=== PATIENT | female | born 1960 | race Caucasian/White ===

== ENCOUNTER 2020-05-03 09:14 | Inpatient (IN) | payer OTHER, SELFPAY ==
[2020-05-03] VITALS (35 sets, daily range): BP systolic 90–171; BP diastolic 50–85; PULSE 84–105; RESP 14–20; TEMP 36–36.3; O2SAT 87–100; BMI 38.2; BMI 40.3
--- NOTE | 2020-05-03 09:33 | ED_ITS ---
HPI - Abdominal Pain General Chief Complaint: Abdominal Pain Stated Complaint: Severe stomach pain, vomiting bile, SOB Time Seen by Provider: 05/03/20 09:32 Source: patient Mode of arrival: Ambulatory Limitations: no limitations History of Present Illness HPI narrative: The patient developed abdominal pain last night, she has ongoing pain today. She developed emesis since the onset of pain. She has had no diarrhea, she has had only 1 small bowel movement since yesterday. She's had very little oral intake, she is still able to make urine this morning. She has a large umbilical hernia, she has never had abdominal or pelvic surgery. She has a history of diverticulitis. She has no history of bowel obstruction. He is having no fever with current symptoms, she does report chills. Although the pain initiated as abdominal pain, the pain now radiates to her back. The pain seems to be throughout her abdomen. She has history of COPD, she still smokes cigarettes. She has a chronic cough but no acute shortness of breath. Additionally, she has history of diabetes, hypertension, and CHF. Her last echo you revealed an EF of 55% Related Data Allergies Allergy/AdvReac Type Severity Reaction Status Date / Time atenolol [ATENOLOL] Allergy Severe THROAT Verified 05/03/20 09:50 CLOSES clonidine [CLONIDINE] Allergy Mild RASHS Verified 05/03/20 09:50 Review of Systems Constitutional Constitutional: Reports chills (Since last night), Denies fever(s), Denies lethargy and Denies weakness Eyes Eyes: Denies change in vision ENT Comments: No complaints Cardiovascular Cardiovascular: Denies chest pain, Denies rapid heart rate and Denies dyspnea Respiratory Respiratory: Reports cough and Denies dyspnea Gastrointestinal Gastrointestinal: Reports as per HPI Genitourinary Genitourinary: Denies dysuria Genitourinary: Denies dysuria Musculoskeletal Musculoskeletal: Reports as per HPI and Reports back pain Integumentary/Breasts Skin/Breast: Denies pruritus, Denies erythema, Denies rash and Denies wounds Neurologic Neurologic: Denies confusion and Denies weakness Psychiatric Psychiatric: Denies anxiety, Denies confusion and Denies depression Patient History Medical History COPD (chronic obstructive pulmonary disease) (Acute) Diabetes (Acute) HTN (hypertension) (Acute) Obstructive sleep apnea (Acute) Surgical History No history of previous surgery (Acute) S/P tonsillectomy (Acute) Social History Smoking Status: Current every day smoker Smoking Status: Current every day smoker alcohol intake frequency: 0-2 drinks per day Substance Use Type: does not use Exam Initial Vital Signs Initial Vital Signs: Vital Signs Temperature 96.9 F L 05/03/20 09:25 Pulse Rate 105 H 05/03/20 09:25 Respiratory Rate 20 05/03/20 09:25 Blood Pressure 159/85 H 05/03/20 09:25 Pulse Oximetry 90 L 05/03/20 09:25 Const General: cooperative and well developed Nutritional Appearance: well nourished Other: She appears uncomfortable. HENMT Head: normocephalic and atraumatic Eyes Conjunctivae: conjunctivae normal Sclera: sclerae normal Neck Neck: No JVD Chest Chest: normal palpation of entire chest wall Resp Auscultation: clear to auscultation bilaterally Cardio Rate: regular rate Rhythm: regular rhythm Heart Sounds: S1 normal and S2 normal GI Other: Morbidly obese. Large, protruding umbilical hernia. The hernia site is tender to palpation. The hernia seems to mostly be reduced, but pushes right back out. The hernia area seems to be the focus of pain, there is erythema and warmth at the site. She experiences tenderness throughout them, would not with guarding or rebound. Bowel sounds are normal to hyperactive. Back/Spine/Pelvis Back: No CVA tenderness Skin General: no rashes or lesions noted, No jaundice and No petechiae Neuro General: patient alert, patient oriented x3, gait normal and no focal motor deficits Speech: speech normal Extrem General: full ROM, No no clubbing, cyanosis or edema, no pedal edema and no calf tenderness Psych Mental Status: mental status grossly normal Course Course Course Narrative: A strangulated hernia was confirmed by CT. The situation was discussed with the radiologist. Small-bowel obstruction is present in ass ociation with strangulated hernia. The case was discussed with surgery, Dr. Camp. Columban was given. Anesthesia consult on the patient here in the ER. Her comorbidities of CHF, COPD, and diabetes were reviewed chest x-ray and labs indicated a degree of CHF currently. Anesthesia concurred that a current echo may be useful, 1 was ordered preop, and was performed in OR holding. Her EF is 45-50% at this time. Orders Ordered: ED Orders 05/03/20 09:27 EKG-12 Lead Stat 05/03/20 09:28 Complete Blood Count AUTO DIFF Stat Comprehensive Metabolic Panel Stat Lipase Stat NT-proBNP (BNP-Adult 18+) Stat Partial Thromboplastin Time Stat Prothrombin Time INR Stat 05/03/20 09:48 CT abdomen pelvis w con Stat 05/03/20 10:53 XR chest 1V Stat Sodium Chloride (Normal Saline 0.9%) 1,000 mls @ 250 mls/hr IV CONT SARAH Last Admin: 05/03/20 10:50 Dose: Not Given Documented by: RADHA Lactated Ringer's (Lactated Ringers) 1,000 mls @ 42 mls/hr IV CONT SARAH Last Admin: 05/03/20 14:44 Dose: 42 mls/hr Documented by: Infusion: 05/03/20 14:44 Dose: 42 mls/hr Documented by: Infusion: 05/03/20 13:03 Dose: 42 mls/hr Documented by: Admin: 05/03/20 12:06 Dose: 42 mls/hr Documented by: RADHA Discontinued Medications Albuterol (Ventolin) 2.5 mg INH NOW ONE Stop: 05/03/20 12:19 Last Admin: 05/03/20 13:36 Dose: 2.5 mg Documented by: SANA Hydromorphone HCl (Dilaudid) 1 mg IV NOW ONE Stop: 05/03/20 10:25 Last Admin: 05/03/20 10:27 Dose: 1 mg Documented by: RADHA Sodium Chloride (Normal Saline 0.9%) 1,000 mls @ 1,000 mls/hr IV BOLUS ONE Stop: 05/03/20 10:41 Last Infusion: 05/03/20 11:00 Dose: 0 mls/hr Documented by: Infusion: 05/03/20 10:15 Dose: 1,000 mls/hr Documented by: Infusion: 05/03/20 10:00 Dose: 0 mls/hr Documented by: Admin: 05/03/20 09:43 Dose: 1,000 mls/hr Documented by: RADHA Piperacillin/Tazobactam/Dextrose (Zosyn) 4.5 gm in 100 mls @ 200 mls/hr IV NOW ONE Stop: 05/03/20 11:23 Last Infusion: 05/03/20 11:35 Dose: 0 mls/hr Documented by: Admin: 05/03/20 11:05 Dose: 200 mls/hr Documented by: RADHA Acetaminophen (Ofirmev) 1,000 mg in 100 mls @ 400 mls/hr IV NOW ONE Stop: 05/03/20 14:56 Last Admin: 05/03/20 14:43 Dose: 400 mls/hr Documented by: ALICE Ketorolac Tromethamine (Toradol) 30 mg IV NOW ONE Stop: 05/03/20 09:48 Last Admin: 05/03/20 09:53 Dose: 30 mg Documented by: RADHA Ondansetron HCl (Zofran) 4 mg IV NOW ONE Stop: 05/03/20 09:48 Last Admin: 05/03/20 10:59 Dose: Not Given Documented by: RADHA Vital Signs Vital signs: Vital Signs - 8 hr 05/03/20 09:25 05/03/20 09:39 05/03/20 10:00 Temperature 96.9 F L Pulse Rate 105 H 101 H 97 H Respiratory Rate 20 Blood Pressure 159/85 H Pulse Oximetry 90 L 97 94 05/03/20 10:29 05/03/20 10:30 05/03/20 11:00 Temperature Pulse Rate 96 H 95 H 92 H Respiratory Rate Blood Pressure 149/77 H 158/77 H Pulse Oximetry 97 96 94 MDM - Abdominal Pain Lab Data Result diagrams: 05/03/20 09:28 05/03/20 09:28 Labs: Lab Results 05/03/20 05/03/20 05/03/20 Range/Units 09:28 09:28 09:28 WBC 16.5 H (4.5-11.0) X10^3/uL RBC 6.42 H (4.0-5.2) X10^6/uL Hgb 16.6 H (12.0-16.0) g/dL Hct 52.9 H (36-46) % MCV 82.4 (80-100) fL MCH 25.8 L (26-34) PG MCHC 31.3 (30-36) % RDW 16.8 H (11.6-14.8) % Plt Count 257 (150-400) X10^3/uL Neut % (Auto) 83.2 H (50-75) % Lymph % (Auto) 9.8 L (25-40) % [place] % (Auto) 6.4 (3-14) % Eos % (Auto) 0.3 L (2-4) % Baso % (Auto) 0.3 (0-2) % Neut # (Auto) 17120 H (9562-9225) /uL Lymph # (Auto) 1600 (6884-8831) /uL [place] # (Auto) 1100 H (0-900) /uL Eos # (Auto) 0 (0-450) /uL Baso # (Auto) 0 (0-100) /uL PT 11.2 (10.1-12.7) SECONDS INR 1.0 (0.9-1.3) APTT 35 (26.4-36.2) SECONDS Sodium 134 L (137-145) mmol/L Potassium 4.6 (3.4-5.1) mmol/L Chloride 92 L (98-107) mmol/L Carbon Dioxide 34 H (22-32) mmol/L BUN 18 H (7-17) mg/dL Creatinine 0.80 (0.52-1.04) mg/dL Estimated GFR > 60.0 (>60) mL/min BUN/Creatinine Ratio 22.5 H (6-22) Glucose 236 H (80-110) mg/dL Calcium 10.1 (8.4-10.2) mg/dL Total Bilirubin 0.9 (0.2-1.3) mg/dL AST 22 (14-36) IU/L ALT 20 (<35) IU/L Alkaline Phosphatase 112 (38-126) U/L NT-Pro-B Natriuret Pep (<125) pg/mL Total Protein 8.3 H (6.3-8.2) g/dL Albumin 4.3 (3.5-5.0) g/dL Globulin 4.0 (1.7-4.1) g/dL Albumin/Globulin Ratio 1.1 (1.0-2.8) Lipase 52 (23-300) U/L 05/03/20 Range/Units 09:28 WBC (4.5-11.0) X10^3/uL RBC (4.0-5.2) X10^6/uL Hgb (12.0-16.0) g/dL Hct (36-46) % MCV (80-100) fL MCH (26-34) PG MCHC (30-36) % RDW (11.6-14.8) % Plt Count (150-400) X10^3/uL Neut % (Auto) (50-75) % Lymph % (Auto) (25-40) % [place] % (Auto) (3-14) % Eos % (Auto) (2-4) % Baso % (Auto) (0-2) % Neut # (Auto) (3361-4647) /uL Lymph # (Auto) (0438-1690) /uL [place] # (Auto) (0-900) /uL Eos # (Auto) (0-450) /uL Baso # (Auto) (0-100) /uL PT (10.1-12.7) SECONDS INR (0.9-1.3) APTT (26.4-36.2) SECONDS Sodium (137-145) mmol/L Potassium (3.4-5.1) mmol/L Chloride (98-107) mmol/L Carbon Dioxide (22-32) mmol/L BUN (7-17) mg/dL Creatinine (0.52-1.04) mg/dL Estimated GFR (>60) mL/min BUN/Creatinine Ratio (6-22) Glucose (80-110) mg/dL Calcium (8.4-10.2) mg/dL Total Bilirubin (0.2-1.3) mg/dL AST (14-36) IU/L ALT (<35) IU/L Alkaline Phosphatase (38-126) U/L NT-Pro-B Natriuret Pep 842 H (<125) pg/mL Total Protein (6.3-8.2) g/dL Albumin (3.5-5.0) g/dL Globulin (1.7-4.1) g/dL Albumin/Globulin Ratio (1.0-2.8) Lipase (23-300) U/L Imaging Data CT scan - abdomen/pelvis: Radiologist's Impression: 2 Diagnostics DATE TYPE STATUS REF RANGE/AUTHOR Jennifer 05/03/20 12:32 Constantino Cuevas 05/03/20 10:53 Freddy Fernandez 05/03/20 09:48 Nahid Fernandezson Jacque Harrison 59, F110/20/1959 ADM [facility] 165.1cm 104.326kg BMI: 38.3kg/m? Search Chart No Data to Display No Data to Display THROAT CLOSES RASHS ONSET Today 12:30 Jacque Harrison 59 F 1960 [place] [address] CT Scan Report Signed Patient: Jacque Harrison MMR#: [id number] : 1960cct:[id number] Age/Sex: 59 / FDate of Service: 05/03/20 Loc: ED Accession Number: [id number] Procedure: CT abdomen pelvis w con Ordering Provider: Constantino Beckham MD PROCEDURE: CT ABDOMEN PELVIS W CON INDICATIONS: Generalized abdominal tenderness. Large periumbilical hernia TECHNIQUE: After the administration of intravenous contrast, 5 mm thick sections acquired from the diaphragm to the symphysis. 5 mm coronal and sagittal reformats were acquired. For radiation dose reduction, the following was used: automated exposure control, adjustment of mA and/or kV according to patient size. COMPARISON: None. FINDINGS: Image quality: Excellent. ABDOMEN: Lung bases: Lung bases are clear. Heart size is normal. Solid organs: Liver is normal in size and enhancement. Gallbladder contains few small gallstones with no findings of cholecystitis. Biliary system is non dilated. Pancreas enhances normally. Spleen is normal in size and enhancement. No adrenal nodules. Kidneys demonstrate normal size and enhancement, without hydronephrosis. Peritoneum and bowel: There is a large ventral periumbilical hernia which contains both small bowel and mesentery. There is a segment of the herniated bowel which demonstrates wall thickening and adjacent inflammatory fat stranding. There is also stranding throughout the herniated mesentery and fluid within the hernia sac. Findings are suggestive of a hernia strangulation. Moreover, there is findings of at least partial small bowel obstruction with numerous dilated loops of bowel proximal to the her niated bowel loops with a transition point at the neck of the hernia. Colon is unremarkable. Nodes and vessels: No retroperitoneal or mesenteric adenopathy by size criteria. Aorta and inferior vena cava are normal in size. PELVIS: Genitourinary: Bladder wall thickness is normal. Miscellaneous: No inguinal hernias or adenopathy. Bones: No suspicious bony lesions. No vertebral body compression fractures. IMPRESSION: Findings of high-grade small bowel obstruction due to strangulated ventral periumbilical hernia. Findings were discussed with Dr. Ramirez at 10:38 a.m. on 05/03/2020. Dictated by: Freddy Fernandez M.D. on 05/03/2020 at 10:33 Approved by: Freddy Fernandez M.D. on 05/03/2020 at 10:40 Chest x-ray: Radiologist's Impression: Jacque Harrison 59 F 1960 [place] [address] XRay Report Signed Patient: Jacque Harrison MMR#: [id number] : 1960cct:[id number] Age/Sex: 59 / FDate of Service: 05/03/20 Loc: ED Accession Number: [id number] Procedure: XR chest 1V Ordering Provider: Constantino Beckham MD PROCEDURE: XR CHEST 1V INDICATIONS: Cough. History of CHF. History of COPD. TECHNIQUE: One view of the chest was acquired. COMPARISON: [facility], CHEST 1 VIEW, 10/11/2017, 18:00. FINDINGS: Surgical changes and devices: None. Lungs and pleura: Interstitial markings are increased bilaterally. Possible small left pleural effusion. Mediastinum: Mild cardiomegaly worsened from prior study. Bones and chest wall: No suspicious bony lesions. Overlying soft tissues appea r unremarkable. IMPRESSION: Cardiomegaly with increased interstitial markings in both lungs. There may be a tiny right left pleural effusion. Findings would be consistent with cardiogenic pulmonary edema in the appropriate clinical setting. Dictated by: Freddy Fernandez M.D. on 05/03/2020 at 11:19 Approved by: Freddy Fernandez M.D. on 05/03/2020 at 11:21 Critical Care Time Critical Care Time Critical Care Time: Yes Total Critical Care Time: 60 Attestation: Critical care time included re-evaluation patient, review of past medical records, review of x-ray, radiology and lab data. Time included discussing the findings with the patient, multiple clinical decisions and consultation with the admitting surgeon and the anesthesiologist. Discharge Plan Departure Patient Disposition: Admitted to Surgery Clinical Impression: Strangulated hernia of abdominal wall, COPD (chronic obstructive pulmonary disease), Complete small bowel obstruction, Congestive heart failure, Diabetes Discharge Date/Time: 05/03/20 12:43 Admit Date/Time: 05/03/20 11:26 Admit Provider: Joseluis Camp
[2020-05-03] MEDS: SODIUM CHLORIDE 0.9% 1,000 ML 1000 ML IV (09:43)
[2020-05-03] MEDS: ONDANSETRON 4 MG/2 ML INJ ×2 (09:43→13:19)
[2020-05-03 09:47] LABS: Prothrombin Time 11.2 SECONDS (10.1-12.7)
--- NOTE | 2020-05-03 09:48 | DI.CT.S_ITS ---
PROCEDURE: CT ABDOMEN PELVIS W CON INDICATIONS: Generalized abdominal tenderness. Large periumbilical hernia TECHNIQUE: After the administration of intravenous contrast, 5 mm thick sections acquired from the diaphragm to the symphysis. 5 mm coronal and sagittal reformats were acquired. For radiation dose reduction, the following was used: automated exposure control, adjustment of mA and/or kV according to patient size. COMPARISON: None. FINDINGS: Image quality: Excellent. ABDOMEN: Lung bases: Lung bases are clear. Heart size is normal. Solid organs: Liver is normal in size and enhancement. Gallbladder contains few small gallstones with no findings of cholecystitis. Biliary system is non dilated. Pancreas enhances normally. Spleen is normal in size and enhancement. No adrenal nodules. Kidneys demonstrate normal size and enhancement, without hydronephrosis. Peritoneum and bowel: There is a large ventral periumbilical hernia which contains both small bowel and mesentery. There is a segment of the herniated bowel which demonstrates wall thickening and adjacent inflammatory fat stranding. There is also stranding throughout the herniated mesentery and fluid within the hernia sac. Findings are suggestive of a hernia strangulation. Moreover, there is findings of at least partial small bowel obstruction with numerous dilated loops of bowel proximal to the herniated bowel loops with a transition point at the neck of the hernia. Colon is unremarkable. Nodes and vessels: No retroperitoneal or mesenteric adenopathy by size criteria. Aorta and inferior vena cava are normal in size. PELVIS: Genitourinary: Bladder wall thickness is normal. Miscellaneous: No inguinal hernias or adenopathy. Bones: No suspicious bony lesions. No vertebral body compression fractures. IMPRESSION: Findings of high-grade small bowel obstruction due to strangulated ventral periumbilical hernia. Findings were discussed with Dr. Ramirez at 10:38 a.m. on 05/03/2020. Dictated by: Freddy Fernandez M.D. on 05/03/2020 at 10:33 Approved by: Freddy Fernandez M.D. on 05/03/2020 at 10:40
[2020-05-03 09:49] LABS: PTT Partial Thromboplastin Tim 35 SECONDS (26.4-36.2)
[2020-05-03 09:52] LABS: Add Manual Diff / Slide Review NO; Alanine Aminotransferase 20 IU/L (<35); Albumin 4.3 g/dL (3.5-5.0); Albumin Globulin Ratio 1.1 (1.0-2.8); Alkaline Phosphatase 112 U/L (38-126); Aspartate Aminotransferase 22 IU/L (14-36); BUN Creatinine Ratio 22.5 (6-22); Basophils Absolute Auto 0 /uL (0-100); Basophils Percent Auto 0.3 % (0-2); Bilirubin Total 0.9 mg/dL (0.2-1.3); Blood Urea Nitrogen 18 mg/dL (7-17); Calcium 10.1 mg/dL (8.4-10.2); Carbon Dioxide 34 mmol/L (22-32); Chloride 92 mmol/L (98-107); Eosinophils Absolute Auto 0 /uL (0-450); Eosinophils Percent Auto 0.3 % (2-4); Estimated Glomerular Filt Rate > 60.0 mL/min (>60); Glucose 236 mg/dL (80-110); HEMOLYSIS < 15 (0-50); Hematocrit 52.9 % (36-46); Hemoglobin 16.6 g/dL (12.0-16.0); Lipase 52 U/L (23-300); Lymphocytes Absolute Auto 1600 /uL (1100-4500); Lymphocytes Percent Auto 9.8 % (25-40); Mean Corpuscular HGB Conc 31.3 % (30-36); Mean Corpuscular Hemoglobin 25.8 PG (26-34); Mean Corpuscular Volume 82.4 fL (80-100); Monocytes Absolute Auto 1100 /uL (0-900); Monocytes Percent Auto 6.4 % (3-14); Neutrophils Absolute Auto 13700 /uL (1500-7000); Neutrophils Percent Auto 83.2 % (50-75); Platelet Count 257 X10^3/uL (150-400); Potassium 4.6 mmol/L (3.4-5.1); Red Blood Cell Count 6.42 X10^6/uL (4.0-5.2); Red Cell Distribution Width 16.8 % (11.6-14.8); Sodium 134 mmol/L (137-145); Total Protein 8.3 g/dL (6.3-8.2); White Blood Cell Count 16.5 X10^3/uL (4.5-11.0)
[2020-05-03] MEDS: KETOROLAC 60 MG/2 ML VIAL 30 MG IV (09:53)
[2020-05-03] MEDS: HYDROMORPHONE 1 MG INJ IV (10:27)
--- NOTE | 2020-05-03 10:53 | DI.RAD.S_ITS ---
PROCEDURE: XR CHEST 1V INDICATIONS: Cough. History of CHF. History of COPD. TECHNIQUE: One view of the chest was acquired. COMPARISON: [facility], , CHEST 1 VIEW, 10/11/2017, 18:00. FINDINGS: Surgical changes and devices: None. Lungs and pleura: Interstitial markings are increased bilaterally. Possible small left pleural effusion. Mediastinum: Mild cardiomegaly worsened from prior study. Bones and chest wall: No suspicious bony lesions. Overlying soft tissues appear unremarkable. IMPRESSION: Cardiomegaly with increased interstitial markings in both lungs. There may be a tiny right left pleural effusion. Findings would be consistent with cardiogenic pulmonary edema in the appropriate clinical setting. Dictated by: Freddy Fernandez M.D. on 05/03/2020 at 11:19 Approved by: Freddy Fernandez M.D. on 05/03/2020 at 11:21
[2020-05-03] MEDS: PIPERACILLIN-TAZO 4.5 GM/100 ML FROZ.PIGGY IV (11:05)
[2020-05-03 11:17] LABS: NT-proBNP (BNP-Adult 18+) 842 pg/mL (<125)
--- NOTE | 2020-05-03 11:50 | PM.HP.1 ---
History of Present Illness History of Present Illness Date Patient Seen: 05/03/20 Time Patient Seen: 11:51 Chief complaint: Severe stomach pain, vomiting bile, SOB Narrative: This is a 59-year-old woman who presents with a small-bowel obstruction with incarcerated umbilical hernia. Hernia is been present for decades that she developed a an acute incarceration within the past 24 hours associated with nausea and vomiting. Her abdominal pain progressed she presents to the emergency room underwent a CT scan that demonstrates small bowel within the hernia as well as obstruction. He has never had any prior abdominal surgery. Medical history is relevant for obstructive sleep apnea, COPD on 3 L of oxygen baseline, congestive heart failure ejection fraction unknown, diabetes, obesity, BMI 38 and hypertension. Patient History Medical History (Updated 05/03/20 @ 11:54 by Joseluis Camp MD) COPD (chronic obstructive pulmonary disease) (Acute) Diabetes (Acute) HTN (hypertension) (Acute) Obstructive sleep apnea (Acute) Surgical History (Updated 05/03/20 @ 11:54 by Joseluis Camp MD) No history of previous surgery (Acute) S/P tonsillectomy (Acute) Family & Social History Safety & Behavioral: Feels Safe in Current Yes Environment Been Physically Hurt or No Threatened By a Person Tobacco & Substance use: Smoking Status Current every day smoker alcohol intake frequency 0-2 drinks per day Substance Use Type does not use Meds Home Medications and Allergies Allergies Allergy/AdvReac Type Severity Reaction Status Date / Time atenolol [ATENOLOL] Allergy Severe THROAT Verified 05/03/20 09:50 CLOSES clonidine [CLONIDINE] Allergy Mild RASHS Verified 05/03/20 09:50 Review of Systems Review of Systems Narrative: A 10 point review of systems is negative except as noted in the HPI Exam Vital Signs (past 8 hours): - 05/03/20 09:25 05/03/20 09:39 05/03/20 10:00 Temperature 96.9 F L Pulse Rate 105 H 101 H 97 H Respiratory Rate 20 Blood Pressure 159/85 H Pulse Oximetry 90 L 97 94 05/03/20 10:29 05/03/20 10:30 05/03/20 11:00 Temperature Pulse Rate 96 H 95 H 92 H Respiratory Rate Blood Pressure 149/77 H 158/77 H Pulse Oximetry 97 96 94 05/03/20 11:30 Temperature Pulse Rate 94 H Respiratory Rate Blood Pressure 171/81 H Pulse Oximetry 94 Oxygen Delivery Method Nasal Cannula Oxygen Flow Rate 3 Narrative Exam Narrative: General obese adult female in alert oriented HEENT-moist mucous membranes, no scleral icterus Neck-supple, no lymphadenopathy Chest- non labored respirations, clear to auscultation bilaterally Cardiac-regular rate no peripheral edema Abdomen-incarcerated umbilical hernia unable to be reduced overlying erythema Extremities-warm, well perfused Neurological-alert and oriented, no focal deficits Objective Labs Result Diagrams: 05/03/20 09:05/03/20 09:28 Labs: Laboratory Results - last 24 hr 05/03/20 05/03/20 05/03/20 09:28 09:28 09:28 WBC 16.5 H RBC 6.42 H Hgb 16.6 H Hct 52.9 H MCV 82.4 MCH 25.8 L MCHC 31.3 RDW 16.8 H Plt Count 257 Neut % (Auto) 83.2 H Lymph % (Auto) 9.8 L [place] % (Auto) 6.4 Eos % (Auto) 0.3 L Baso % (Auto) 0.3 Neut # (Auto) 25173 H Lymph # (Auto) 1600 [place] # (Auto) 1100 H Eos # (Auto) 0 Baso # (Auto) 0 PT 11.2 INR 1.0 APTT 35 Sodium 134 L Potassium 4.6 Chloride 92 L Carbon Dioxide 34 H BUN 18 H Creatinine 0.80 Estimated GFR > 60.0 BUN/Creatinine Ratio 22.5 H Glucose 236 H Calcium 10.1 Total Bilirubin 0.9 AST 22 ALT 20 Alkaline Phosphatase 112 NT-Pro-B Natriuret Pep Total Protein 8.3 H Albumin 4.3 Globulin 4.0 Albumin/Globulin Ratio 1.1 Lipase 52 05/03/20 09:28 WBC RBC Hgb Hct MCV MCH MCHC RDW Plt Count Neut % (Auto) Lymph % (Auto) [place] % (Auto) Eos % (Auto) Baso % (Auto) Neut # (Auto) Lymph # (Auto) [place] # (Auto) Eos # (Auto) Baso # (Auto) PT INR APTT Sodium Potassium Chloride Carbon Dioxide BUN Creatinine Estimated GFR BUN/Creatinine Ratio Glucose Calcium Total Bilirubin AST ALT Alkaline Phosphatase NT-Pro-B Natriuret Pep 842 H Total Protein Albumin Globulin Albumin/Globulin Ratio Lipase Assessment & Plan Assessment & Plan narrative: 59 year old woman with CEASAR COPD CHF diabetes who has an incarcerated umbilical hernia with associated small-bowel obstruction. I explained to the patient and her her diagnosis and that I recommended we proceed with an exploratory laparotomy possible bowel resection. I explained that if the bowel not viable I will be unable to repair the hernia defect with mesh. We discussed the operative risks including bleeding infection hernia recurrence anastomotic leak damage to surrounding structures heart attack stroke inability to wean from the vent postoperatively and . All questions have been answered she is in agreement with this plan will proceed to the operating room.
[2020-05-03] MEDS: LACTATED RINGERS 1,000 ML 42 ML IV ×3 (12:06→16:53)
--- NOTE | 2020-05-03 12:32 | DI.ECHO.S_ITS ---
[place] +---------+ [facility] +---------+ : : [address] : : : : [id number] : : : : Phone: [phone] Echocardiogram Report + + :Name: GARRETT HERNANDEZ Study Date: 05/03/2020 Height: 65 in : :[facility] Weight: 230 lb : : Gender: Female BSA: 2.1 m2 : :: 1960 Age: 59 yrs BP: 171/81 mmHg: :Reason For Study: Surgery : :Ordering Physician: HOSPITALIST, : :MAGDALENA Performed By: Paula Hand : :Referring: TONJA BENAVIDES : + + Interpretation Summary Left ventricular systolic function appears to be mildly depressed in a global fashion with an ejection fraction grossly estimated at 45 to 50% without any obvious focal wall motion abnormality. Left ventricular volumes are mildly increased with moderate concentric LVH, suggestive of hypertensive heart disease. Diastolic function could not be assessed because of her sinus tachycardia. The right ventricle appears normal in size and systolic function. Right ventricular systolic pressure cannot be estimated but CVP is likely around 3 mmHg. There is mild biatrial enlargement. The mitral valve is not well seen but grossly appears normal with probable mild to moderate mitral regurgitation with an eccentric regurgitant jet. There is mild aortic valve sclerosis without stenosis with mild aortic regurgitation. The ascending aorta is mild to moderately enlarged. Procedure: A two-dimensional transthoracic echocardiogram with color flow and Doppler was performed. The study quality was technically difficult. There is no prior echocardiogram noted for this patient. Patient refused the use of Definity due to severe pain and unknown allergy concerns. The patient was in sinus tachycardia with heart rates between 92-114 bpm during the exam. Left Ventricle: The left ventricle is mildly dilated. There is moderate concentric left ventricular hypertrophy. Left ventricular systolic function is mildly reduced. The ejection fraction is estimated to be 45-50%. There is mild global hypokinesis of the left ventricle. There are no focal wall motion abnormalities. Diastolic function could not be accurately assessed due to tachycardia. Right Ventricle: The right ventricle is normal in size and function. Atria: Both atria are mildly dilated. There is no Doppler evidence for an interatrial shunt. Mitral Valve: The mitral valve leaflets appear mildly thickened, but open well. There is mild to moderate mitral regurgitation. There is an eccentric jet of mitral regurgitation that is directed posterolaterally. Aortic Valve: The aortic valve is trileaflet. The aortic valve is mildly calcified. The aortic valve opens well. There is no aortic valve stenosis. There is mild aortic regurgitation. Tricuspid Valve: The tricuspid valve is not well visualized, but is grossly normal. Pulmonary artery pressures cannot be estimated because of the lack of a measurable TR jet velocity but the IVC suggests a CVP of around 3 mmHg. There is trace tricuspid regurgitation. Pulmonic Valve: The pulmonic valve is not well visualized. There is no pulmonic valvular regurgitation. Great Vessels: The aortic root is normal size. The ascending aorta is mild- moderately enlarged. The IVC is of normal diameter and collapses greater than 50% with a sniff. This suggests a low right atrial pressure of 3 mm Hg. Pericardium/ Pleura There is no pericardial effusion. There is no pleural effusion. MMode/2D Measurements & Calculations LVIDd: 6.1 cm LVOT diam: 2.3 cm LVIDs: 5.2 cm Ao root diam: 2.7 cm FS: 14.4 % asc Aorta Diam: 3.8 cm EPSS: 1.5 cm IVSd: 1.4 cm LVPWd: 1.3 cm LV berrios. diameter/BSA (cm/m^2): 2.9 LV sys. diameter/BSA (cm/m^2): 2.5 LA A2 area: 22.2 cm2 RA long axis: 5.1 cm LA A4 area: 21.9 cm2 RA area: 20.8 cm2 LA length (vol): 5.8 cm RA vol: 71.9 ml LA vol: 71.1 ml RA : 34.2 ml/m2 LA vol index: 33.8 ml/m2 IVC diam: 1.3 cm RVD1 (basal): 2.9 cm TAPSE: 2.1 cm Doppler Measurements & Calculations Ao V2 max: 186.8 cm/sec LVOT Max Reed: 96.0 cm/sec Ao V2 mean: 119.9 cm/sec LV V1 max P.7 mmHg Ao max P.0 mmHg LV V1 VTI: 18.5 cm Ao mean P.9 mmHg LARA(I,D): 2.4 cm2 Ao V2 VTI: 33.5 cm LARA(V,D): 2.2 cm2 sev ratio: 0.55 LARA indexed to BSA (cm^2/m^2): 1.1 PA V2 max: 84.5 cm/sec SV(LVOT): 79.7 ml PA V2 mean: 50.4 cm/sec PA mean P.3 mmHg PA pr(Accel): 35.3 mmHg Reading Physician:PILAR
[2020-05-03 12:38] LABS: COVID19 -Nasal RAPID Negative (Negative)
--- NOTE | 2020-05-03 13:02 | PC.NURSE ---
bedside report given to OXYACETYLENE CUTTER. pt taken to Pre Op area for nebulizer and Echo before surgery. consent witnessed and in chart.
[2020-05-03] MEDS: HYDROMORPHONE 2 MG INJ ×2 (13:21→13:25)
--- NOTE | 2020-05-03 13:25 | SUR.HOLD ---
RECEIVED PT INOT PREOP HOLD, PT ON 3LNC, DAUGHTERS SPOKE WITH DR SAENZ AT LENGTH, PT MEDICATED FOR C/O NAUSEA AND FOR PAIN 04/03, ULTRASOUND BEING DONE.
[2020-05-03] MEDS: ALBUTEROL 2.5 MG/3 ML NEB (ADULT) INH (13:36)
--- NOTE | 2020-05-03 14:22 | SUR.OPER ---
Supine on padded OR bed, head on pillow, arms secured on padded arm boards at <90 degrees abduction, legs uncrossed, safety belt at thigh, tape over blanket over lower legs.
[2020-05-03] MEDS: ACETAMINOPHEN IV 1,000 MG/100 ML VIAL 400 MG IV (14:43)
--- NOTE | 2020-05-03 16:04 | P.OP_ITS ---
Operative Date/Time/Diagnoses Date of procedure: 05/03/20 Time of procedure: 16:04 Pre-op diagnosis: Incarcerated umbilical hernia, small-bowel obstruction Post-op diagnosis: same Procedure & Clinicians Procedure: Exploratory laparotomy Small-bowel resection Ventral hernia repair Lysis of adhesions Application of negative pressure therapy device Same procedure as scheduled: Yes Indications: 59 year old woman with congestive heart failure, COPD on oxygen, diabetes, obesity who presents with a small-bowel obstruction secondary to an incarcerated umbilical hernia. Surgeon: Joseluis Camp Click Yes if Unassisted: Yes Anesthesia Type: General Operative Notes Findings: Necrotic small bowel within the umbilical hernia Specimen(s): other (Small-bowel resection) Estimated Blood Loss (mL): 300 Procedure in detail: The patient is was brought to the operating room placed supine on the table. Bilateral lower extremity compression devices were applied. General anesthesia was induced she was intubated with the endotracheal tube. Harrell catheter was sterilely placed. She was prepped and draped in st erile fashion. Time-out was performed. I made a midline incision through the skin with a knife and then the subcutaneous tissues were divided carefully using sharp dissection as the hernia sac was just beneath the attenuated skin. Hernia sac was carefully from the subcutaneous tissue once hernia sac was opened there was a large volume of serous fluid. The hernia sac was fully opened and within it there was a segment of approximately 8 inches of necrotic small bowel. I extended the laparotomy in order to fully eviscerate the small bowel. There was extensive adhesions between the omentum the hernia sac and the small bowel that were carefully lysed. The fascia was opened above and below the hernia sac. The small bowel was run from the ligament of the Treitz to the cecum. The remainder of the small bowel was viable. Performed a small-bowel resection. A window within the mesentery to the small bowel was made and then the bowel was divided using the SIM stapler blue load. This was performed proximal and distal to the resection segment. The mesentery to the small bowel resection was then performed with the LigaSure device. Several points of the mesentery were particularly thickened and hemostasis was achieved with silk suture. The small bowel was joined in a [id number] fashion with a silk suture placed at the crotch of the anastomosis. A enterotomy was then made in both limbs of the bowel and a common channel was created along the anti mesenteric side of both limbs using and 3rd staple load of the SIM stapler. Inspection of the anastomosis demonstrated that it was patent and hemostatic and both segments of small bowel were well perfused. The common channel was then closed in a running fashion using 3 0 PDS suture and then was oversewn in Lembert fashion with silk suture. The small bowel was then returned to the abdomen. Next attention was turned to the umbilical hernia. Hernia had been present for the last 2 decades in was quite large and the hernia sac which was excised. The fascia on both sides had retreated quite far laterally and skin flaps were raised to mobilized the fascia towards the midline. The abdomen was irrigated with 4 L of saline hemostasis was observed. The fascia was then closed from above and below using a running 1. PDS. Given her obesity, current tobacco use diabetes and contaimnated case a wound VAC was placed into the subcutaneous tissue. She was transferred hemodynamically stable but intubated to the intensive care unit for further management. Complications: none Post-operative Condition: stable Disposition: ICU
--- NOTE | 2020-05-03 16:45 | DI.RAD.S_ITS ---
PROCEDURE: XR CHEST 1V INDICATIONS: O2 dependent COPD, s/p exploratory lap, post-op ventilation TECHNIQUE: One view of the chest was acquired. COMPARISON: [facility], , XR CHEST 1V, 05/03/2020, 11:08. FINDINGS: Surgical changes and devices: Endotracheal tube and nasogastric tubes are in position. The side hole of the nasogastric tube is above the level of the diaphragm. The endotracheal tube tip is about 6 cm above the level of the fabian. Lungs and pleura: Lungs are clear. No pleural effusions or pneumothorax. Mediastinum: Mediastinal contours appear normal. Heart size is stable, enlarged. No central venous congestion. Bones and chest wall: No suspicious bony lesions. Overlying soft tissues appear unremarkable. IMPRESSION: 1. Endotracheal tube could be inserted 2-3 more cm. 2. Nasogastric tube can be inserted about 10 more cm. 3. Stable cardiomegaly without radiographic evidence of acute CHF. Dictated by: Eden Ordoñez M.D. on 05/03/2020 at 16:13 Approved by: Eden Ordoñez M.D. on 05/03/2020 at 16:16
[2020-05-03] MEDS: propofoL 1,000 MG/100 ML VIAL 31.298 MG IV ×2 (16:51→18:52)
[2020-05-03] MEDS: fentaNYL 1,000 MCG in DEXTROSE 5% IN WATER 250 ML 19.718 ML IV (17:21)
[2020-05-03] MEDS: INSULIN ASPART 100 UNIT/ML INSULN PEN SUBCUT (17:33)
--- NOTE | 2020-05-03 18:42 | PM.CN ---
History of Present Illness Consult details Date Patient Seen: 05/03/20 Chief complaint: Severe stomach pain, vomiting bile, SOB Reason for consult: Management of ventilator Requesting provider: Joseluis Camp Narrative: Joyce Harrison is a 59-year-old female with a past medical history significant for hypertension, diabetes mellitus type 2, non-insulin using, oxygen-dependent COPD on 3 L at baseline, systolic congestive heart failure, obstructive sleep apnea on CPAP, morbid obesity and depression who presented to the ED for abrupt onset abdominal pain and found to have incarcerated hernia. Continue was consulted for management of ventilator and comorbidities. HPI unobtainable as patient is intubated and sedated. Patient had emergency surgery for incarcerated ventral hernia and was left on the ventilator postoperatively for recovery purposes. See general surgery Dr. Camp's H&P. Meds Home Medications and Allergies Home Medications Medication Instructions Recorded Confirmed Type Adult Low Dose Aspirin 81 mg PO DAILY 05/03/20 05/03/20 History albuterol sulfate 2 puff INHALATION Q4H 05/03/20 05/03/20 History bupropion HCl 150 mg PO DAILY 05/03/20 05/03/20 History diltiazem HCl 180 mg PO BID 05/03/20 05/03/20 History furosemide 40 mg PO DAILY 05/03/20 05/03/20 History ipratropium-albuterol [Combivent 1 puff INHALATION QID 05/03/20 05/03/20 History Respimat] losartan 100 mg PO DAILY 05/03/20 05/03/20 History sitagliptin [Januvia] 100 mg PO DAILY 05/03/20 05/03/20 History spironolactone 25 mg PO DAILY 05/03/20 05/03/20 History Allergies Allergy/AdvReac Type Severity Reaction Status Date / Time atenolol [ATENOLOL] Allergy Severe THROAT Verified 05/03/20 09:50 CLOSES clonidine [CLONIDINE] Allergy Mild RASHS Verified 05/03/20 09:50 Review of Systems Review of Systems Narrative: A 10 system comprehensive review of systems was unobtainable as patient is intubated and sedated. Exam Vital Signs (past 8 hours): - 05/03/20 11:00 05/03/20 11:30 05/03/20 12:00 Temperature Pulse Rate 92 H 94 H Respiratory Rate Blood Pressure 158/77 H 171/81 H Pulse Oximetry 94 94 92 05/03/20 12:01 05/03/20 12:30 05/03/20 16:10 Temperature 97.3 F L Pulse Rate 93 H 91 H 84 Respiratory Rate 15 Blood Pressure 140/63 138/73 121/74 Pulse Oximetry 93 94 100 05/03/20 17:20 05/03/20 17:30 05/03/20 18:00 Temperature 97.4 F L Pulse Rate 87 88 92 H Respiratory Rate 14 14 16 Blood Pressure 107/65 Pulse Oximetry 93 93 92 05/03/20 18:01 Temperature Pulse Rate Respiratory Rate Blood Pressure 134/72 Pulse Oximetry Fraction of Inspired Oxygen 0.5 Oxygen Delivery Method Nasal Cannula Oxygen Flow Rate 8 Narrative Exam Narrative: General: Older morbidly obese female lying in bed intubated and sedated. HEENT: Normocephalic, atraumatic. External ears without defect. Pupils pinpoint, equal, round, and reactive to light. Anicteric sclerae, moist and conjunctivae. Endotracheal tube and NG tube in place. Neck: No jugular venous distension. No lymphadenopathy or thyromegaly. Cardiovascular: Regular rate and rhythm without murmurs, rubs, or gallops appreciated. Pulmonary: Upper airway rhonchi otherwise clear to auscultation bilaterally in anterior lung without crackles or wheezes. Passive respirations on ventilator. Abdomen: Soft, obese, large vertical surgical wound with wound VAC in place, bowel sounds present. Extremities: No clubbing, cyanosis, or edema. Skin: Normal temperature, turgor, and texture; no rash, ulcers, or subcutaneous nodules appreciated. Objective Labs Result Diagrams: 05/04/20 05:18 05/04/20 05:18 Labs: Laboratory Results - last 24 hr 05/03/20 05/03/20 05/03/20 09:28 09:28 09:28 WBC 16.5 H RBC 6.42 H Hgb 16.6 H Hct 52.9 H MCV 82.4 MCH 25.8 L MCHC 31.3 RDW 16.8 H Plt Count 257 Neut % (Auto) 83.2 H Lymph % (Auto) 9.8 L Isabela % (Auto) 6.4 Eos % (Auto) 0.3 L Baso % (Auto) 0.3 Neut # (Auto) 01519 H Lymph # (Auto) 1600 Isabela # (Auto) 1100 H Eos # (Auto) 0 Baso # (Auto) 0 PT 11.2 INR 1.0 APTT 35 Sodium 134 L Potassium 4.6 Chloride 92 L Carbon Dioxide 34 H BUN 18 H Creatinine 0.80 Estimated GFR > 60.0 BUN/Creatinine Ratio 22.5 H Glucose 236 H Calcium 10.1 Total Bilirubin 0.9 AST 22 ALT 20 Alkaline Phosphatase 112 NT-Pro-B Natriuret Pep Total Protein 8.3 H Albumin 4.3 Globulin 4.0 Albumin/Globulin Ratio 1.1 Lipase 52 COVID-19 PCR 05/03/20 05/03/20 09:28 11:30 WBC RBC Hgb Hct MCV MCH MCHC RDW Plt Count Neut % (Auto) Lymph % (Auto) Isabela % (Auto) Eos % (Auto) Baso % (Auto) Neut # (Auto) Lymph # (Auto) Isabela # (Auto) Eos # (Auto) Baso # (Auto) PT INR APTT Sodium Potassium Chloride Carbon Dioxide BUN Creatinine Estimated GFR BUN/Creatinine Ratio Glucose Calcium Total Bilirubin AST ALT Alkaline Phosphatase NT-Pro-B Natriuret Pep 842 H Total Protein Albumin Globulin Albumin/Globulin Ratio Lipase COVID-19 PCR Negative Assessment & Plan Assessment & Plan narrative: Joyce Harrison is a 59-year-old female with a past medical history significant for hypertension, diabetes mellitus type 2, non-insulin using, oxygen-dependent COPD on 3 L at baseline, systolic congestive heart failure, obstructive sleep apnea on CPAP, morbid obese and depression who presented to the ED for abrupt onset abdominal pain and found to have incarcerated hernia. Continue was consulted for management of ventilator and comorbidities. 1. Incarcerated hernia status post exploratory laparotomy and small-bowel resection, present on admission. Active. -Continue postoperative management per primary team General surgery. 2. Acute on chronic respiratory failure in setting of oxygen-dependent COPD, present on admission. Stable. -Does not represent acute exacerbation of COPD. Patient is on 3 L of oxygen at baseline. -Repeat chest x-ray did not demonstrate any acute cardiopulmonary process with COPD changes. -Patient was left on ventilator postoperatively for recovery purposes. Continue respiratory therapy evaluation and treatment. Continue as needed albuterol and DuoNebs. Continue ventilator at current settings and monitor ABG to adjust ventilator settings. Continue fentanyl gtt and propofol gtt for sedation and titrate to light sedation. Continue daily sedation vacation and pressure support/spontaneous breathing trial to wean off vent. 3. Systolic congestive heart failure, chronic, present on admission. Stable. -Does not represent acute CHF exacerbation. Patient appears to be followed by [facility] cardiology Dr. Fowler and will request outside records. -Repeat chest x-ray did not demonstrate any acute cardiopulmonary process with COPD changes. ProBNP 842. -Held home medications including: Diltiazem ER 180 mg twice daily, furosemide 40 mg daily, losartan 100 mg daily, and spironolactone 25 mg daily for now as patient is immediate post-op and risk of hypotension is high in setting of incarcerated hernia and sedation. -Echocardiogram demonstrated left ventricular systolic function appears to be mildly depressed in a global fashion with an ejection fraction grossly estimated at 45 to 50% without anyobvious focal wall motion abnormality. Left ventricular volumes are mildly increased with moderate concentric LVH suggestive of hypertensive heartdisease. Diastolic function could not be assessed because of her sinus tachycardia. The right ventricle appears normal in size and systolic function. Right ventricular systolic pressure cannot be estimated but CVP is likely around 3 mmHg. There is mild biatrial enlargement. The mitral valve is not well seen but grossly appears normal with probable mild to moderate mitral regurgitation with an eccentric regurgitant jet. There is mild aortic valve sclerosis without stenosis with mild aortic regurgitation. The ascending aorta is mild to moderately enlarged. -Avoid excessive IV fluid hydration. Plan to diurese after patient has stabilized. -Continue to monitor strict I&O and daily weights. 4. Diabetes mellitus type 2, non-insulin using, chronic, present on admission. Stable. -Ordered hemoglobin A1c, pending. -Held Rico. -Continue every 6 hour blood glucose checks and medium dose correctional scale insulin every 6 hours while NPO, intubated and sedated. 5. Hypertension, chronic, present on admission. Stable. -Continue to hold home medications as above. 6. Depression, chronic, present on admission. Stable. -Held bupropion 150 mg daily. 7. Obstructive sleep apnea on CPAP, chronic, present on admission. Stable. -Plan to implement RT home CPAP protocol once patient is extubated. 8. Morbid obesity, chronic, present on admission. Stable. -BMI 40.4 -Due to morbid obesity patient is high risk of complication or bad outcome intra and postoperatively. -Plan to consult dietitian when patient has been extubated. Code status: Full code VTE prophylaxis: Enoxaparin Medication reconciliation has not been performed or confirmed and medications were gathered from external medication history and may not be correct. Confirm medications prior to administration. Thank you for this most interesting consult. Medicine team will continue to follow along with you.
[2020-05-03 19:32] LABS: Add Manual Diff / Slide Review NO; Basophils Absolute Auto 0 /uL (0-100); Basophils Percent Auto 0.2 % (0-2); Eosinophils Absolute Auto 0 /uL (0-450); Eosinophils Percent Auto 0.3 % (2-4); Hematocrit 45.5 % (36-46); Hemoglobin 14.4 g/dL (12.0-16.0); Lymphocytes Absolute Auto 900 /uL (1100-4500); Lymphocytes Percent Auto 8.1 % (25-40); Mean Corpuscular HGB Conc 31.7 % (30-36); Mean Corpuscular Hemoglobin 26.3 PG (26-34); Mean Corpuscular Volume 82.9 fL (80-100); Monocytes Absolute Auto 600 /uL (0-900); Monocytes Percent Auto 5.5 % (3-14); Neutrophils Absolute Auto 9700 /uL (1500-7000); Neutrophils Percent Auto 85.9 % (50-75); Platelet Count 207 X10^3/uL (150-400); Red Blood Cell Count 5.49 X10^6/uL (4.0-5.2); Red Cell Distribution Width 16.9 % (11.6-14.8); White Blood Cell Count 11.3 X10^3/uL (4.5-11.0)
[2020-05-03 19:39] LABS: Alanine Aminotransferase 18 IU/L (<35); Albumin 3.2 g/dL (3.5-5.0); Alkaline Phosphatase 74 U/L (38-126); Aspartate Aminotransferase 23 IU/L (14-36); BUN Creatinine Ratio 20.5 (6-22); Bilirubin Total 1.1 mg/dL (0.2-1.3); Blood Urea Nitrogen 24 mg/dL (7-17); Calcium 8.5 mg/dL (8.4-10.2); Carbon Dioxide 29 mmol/L (22-32); Chloride 95 mmol/L (98-107); Estimated Glomerular Filt Rate 47.2 mL/min (>60); Globulin 3.1 g/dL (1.7-4.1); Glucose 209 mg/dL (80-110); HEMOLYSIS 25 (0-50); Potassium 4.7 mmol/L (3.4-5.1); Sodium 132 mmol/L (137-145); Total Protein 6.3 g/dL (6.3-8.2)
--- NOTE | 2020-05-03 19:40 | PC.NURSE ---
1610 Pt arrived per bed from OR, connected to monitor- sinus rhythm noted, HR 92, BP 121/74. Intubated in OR and vent setting on arrival Vt 500 FiO2 50% Rate16 Peep +5. Currently on Propofol/Fentanyl per orders, RASS -5. NG to LIS draining flynn brown liquid. Wound vac to continuous suction @ 125mmHG with serosangenous drainage. Admission assessment completed and family member allowed at the bedside. Home med list requested. IV started in L FA with 20Ga qc, LR running @ 120ml/hr.
[2020-05-03 21:51] LABS: Magnesium 1.6 mg/dL (1.6-2.3)
[2020-05-03 21:55] LABS: Hemoglobin A1C% w Est Avg Glu 8.9 % (4.0-6.0)
[2020-05-03] MEDS: propofoL 1,000 MG/100 ML VIAL 18.779 MG IV (22:48)
[2020-05-04] VITALS (67 sets, daily range): BP systolic 78–118; BP diastolic 50–76; PULSE 87–107; RESP 12–58; TEMP 36.2–36.5; O2SAT 84–99
--- NOTE | 2020-05-04 | DI.US.S_ITS ---
PROCEDURE: US RENAL COMPLETE INDICATIONS: ARIS TECHNIQUE: Real-time scanning was performed of the kidneys and bladder, with image documentation. COMPARISON. :[facility], CT, CT ABDOMEN PELVIS W CON, 05/03/2020, 9:56. FINDINGS: Kidneys: Kidneys are normal in size. Right kidney measures 10.5 cm long; left kidney measures 10.2 cm long. Right renal cortical thickness is 1.6 cm; left renal cortical thickness is 1.3 cm. Renal cortical echotexture is normal. No hydronephrosis or nephrolithiasis. No suspicious solid mass lesions. Bladder: A Harrell catheter is in place. The bladder is poorly seen. Miscellaneous: No free pelvic fluid. IMPRESSION: Limited examination demonstrating no hydronephrosis. Harrell catheter. Dictated by: Tj Cary M.D. on 05/04/2020 at 8:35 Approved by: Tj Cary M.D. on 05/04/2020 at 8:36
[2020-05-04] MEDS: propofoL 1,000 MG/100 ML VIAL 21.908 MG IV ×2 (03:41→07:26)
[2020-05-04] MEDS: INSULIN ASPART 100 UNIT/ML INSULN PEN SUBCUT ×2 (05:30→12:59)
[2020-05-04 05:47] LABS: Add Manual Diff / Slide Review NO; Basophils Absolute Auto 0 /uL (0-100); Basophils Percent Auto 0.3 % (0-2); Eosinophils Absolute Auto 0 /uL (0-450); Eosinophils Percent Auto 0.2 % (2-4); Hemoglobin 13.6 g/dL (12.0-16.0); Lymphocytes Absolute Auto 1500 /uL (1100-4500); Lymphocytes Percent Auto 12.7 % (25-40); Mean Corpuscular HGB Conc 31.7 % (30-36); Mean Corpuscular Volume 81.8 fL (80-100); Monocytes Absolute Auto 1000 /uL (0-900); Monocytes Percent Auto 8.5 % (3-14); Neutrophils Absolute Auto 9600 /uL (1500-7000); Neutrophils Percent Auto 78.3 % (50-75); Platelet Count 206 X10^3/uL (150-400); Red Blood Cell Count 5.26 X10^6/uL (4.0-5.2); Red Cell Distribution Width 16.8 % (11.6-14.8); White Blood Cell Count 12.2 X10^3/uL (4.5-11.0)
[2020-05-04 05:56] LABS: BUN Creatinine Ratio 15.1 (6-22); Blood Urea Nitrogen 31 mg/dL (7-17); Calcium 8.3 mg/dL (8.4-10.2); Carbon Dioxide 28 mmol/L (22-32); Chloride 95 mmol/L (98-107); Estimated Glomerular Filt Rate 24.7 mL/min (>60); Glucose 194 mg/dL (80-110); HEMOLYSIS < 15 (0-50); Magnesium 1.6 mg/dL (1.6-2.3); Phosphorous 4.7 mg/dL (2.8-4.1); Potassium 5.1 mmol/L (3.4-5.1); Sodium 131 mmol/L (137-145)
[2020-05-04] MEDS: fentaNYL 1,000 MCG in DEXTROSE 5% IN WATER 250 ML 19.718 ML IV ×2 (06:16→19:13)
--- NOTE | 2020-05-04 06:28 | PC.NURSE ---
Addendum entered by Luz Segura R.N. 05/04/20 06:40: Received call back from Dr Camp, order received to give 1 liter LR bolus over 1 hr. Original Note: Liner Helper Note-Patient is vented, FIO2 .50, TV 450, PEEP 8, riding vent RR 16. Propofol gtt titrated 25-45mcg/min to keep sedated RASS -2, does open eyes and briefly tracks, nods or shakes head, is fearful when coughing and during sx. Fentanyl infusing for pain control. Hospitalist provider informed of low UOP at 0400, bladder scanned for 12ml, irrigated and reassessed placement of Harrell several times throughout night, urine is clear yellow. LR increased to 150ml/hr. Paged Dr Camp at 0625, waiting return call. 250ml dark green/rust colored fluid from NGT. Wound Vac to abdominal incision patent with small bloody drainage. BP has been 90s/60s with MAP >65, see vital trends.
[2020-05-04 06:39] LABS: Fractionated Inspired Oxygen 50; HCO3 ABG 28 mmol/L (22-26); Oxygen Saturation ABG 91 % (95-100); PO2 ABG 63 mmHg (80-100); TCO2 ABG 29 mmol/L (21-31); pH ABG 7.39 (7.35-7.45)
[2020-05-04] MEDS: LACTATED RINGERS 1,000 ML 1000 ML IV (06:58)
[2020-05-04] MEDS: PANTOPRAZOLE 40 MG VIAL IV (08:13)
[2020-05-04] MEDS: MAGNESIUM SULFATE 2 GM/50 ML PIGGYBACK IV (08:13)
[2020-05-04] MEDS: HYDROMORPHONE 1 MG INJ 0.5 MG IV (08:28)
[2020-05-04 08:34] LABS: Procalcitonin 5.04 ng/mL (<0.5)
[2020-05-04 08:50] LABS: Appearance Urine UA SL CLOUDY; Bilirubin Urine UA NEGATIVE (NEGATIVE); Color Urine UA YELLOW; Glucose Urine UA NEGATIVE (Negative); Ketones Urine UA NEGATIVE (NEGATIVE); Leukocyte Esterase Urine UA NEGATIVE (NEGATIVE); Nitrite Urine UA NEGATIVE (Negative); Occult Blood Urine UA 2+ (Negative); Protein Urine UA 1+ (Negative); Urobilinogen Urine UA 0.2 E.U./dL (0.2)
[2020-05-04 08:56] LABS: Bacteria Urine Moderate (10-30); Culture Indicated Urine Cult Not Indicated; RBC Urine 10-30/HPF (0-5/HPF); Squamous Epithelial Cell Urine 0-1 /HPF (0-5/HPF); WBC Urine 0-1/HPF (0-5/HPF)
[2020-05-04] MEDS: ENOXAPARIN 30 MG/0.3 ML SYRINGE SUBCUT (09:42)
[2020-05-04] MEDS: LACTATED RINGERS 1,000 ML 150 ML IV ×3 (09:43→22:17)
--- NOTE | 2020-05-04 11:27 | CM.DANOTE ---
DCP: Case received, EMR reviewed. Patient is currently intubated post surgery for hernia repair. Completed DCP assessment after review of notes and H&P. DCP assessment was completed with information that was currently available in chart. Patient is a 59 year old female who admitted yesterday morning to the care of the hospitalist/surgical team. PCP: Unknown at this time. Payer: confirmed: [employer]. Patient came to the hospital via private vehicle secondary to having stomach discomfort, nausea, vomiting, and shortness of breath. Patient sustained exploratory lapartomy, for hernia. She is currently intubated at this time, due to post-op complications, and comorbidities of COPD, acute on chronic respiratory failure. She also currently has a wound vac. Patient laying in her bed intubated. She could possibly be extubated today. She resides in [place] with her spouse, Jerod. She also has a daughter named Sachin who lives in [place]. It is unknown currently who her PCP is. P: DCP to continue to follow closely for needs. At this time, she is medically unstable, extubated and has a wound vac. Will see how she does when extubated. Tiarra Hannon RN/Fishing Guide
[2020-05-04] MEDS: propofoL 1,000 MG/100 ML VIAL 18.779 MG IV (13:24)
--- NOTE | 2020-05-04 14:32 | PM.PNPO.1 ---
Subjective Subjective Date Patient Seen: 05/04/20 Time Patient Seen: 14:32 Interval history: Remained intubated overnight. Urine output low minimally responsive to IV fluids. Exam Vital Signs (past 8 hours): - 05/04/20 07:00 05/04/20 07:30 05/04/20 08:00 Temperature 97.7 F Pulse Rate 90 91 H 90 Respiratory Rate 16 16 16 Blood Pressure 100/55 L 110/64 104/59 L Pulse Oximetry 93 96 95 05/04/20 09:00 05/04/20 09:32 05/04/20 10:00 Temperature Pulse Rate 87 91 H Respiratory Rate 16 26 H Blood Pressure 84/52 L 84/54 L Pulse Oximetry 92 95 95 05/04/20 11:00 05/04/20 11:30 05/04/20 12:00 Temperature 97.3 F L Pulse Rate 89 91 H 95 H Respiratory Rate 12 12 12 Blood Pressure 85/54 L 107/60 95/59 L Pulse Oximetry 97 97 94 05/04/20 13:00 05/04/20 14:06 Temperature Pulse Rate 90 88 Respiratory Rate 16 16 Blood Pressure 97/64 80/52 L Pulse Oximetry 98 96 Fraction of Inspired Oxygen 0.5 Oxygen Delivery Method Mechanical Ventilation Oxygen Flow Rate 8 Narrative Exam Narrative: General adult female sedated for of ventilation response to pain Chest grossly clear mechanically ventilated Abdomen appropriately tender to palpation midline wound VAC in place Objective Labs Result Diagrams: 05/04/20 05:18 05/04/20 05:18 Labs: Laboratory Results - last 24 hr 05/03/20 05/03/20 05/03/20 19:24 19:24 19:24 WBC 11.3 H RBC 5.49 H Hgb 14.4 Hct 45.5 MCV 82.9 MCH 26.3 MCHC 31.7 RDW 16.9 H Plt Count 207 Neut % (Auto) 85.9 H Lymph % (Auto) 8.1 L [place] % (Auto) 5.5 Eos % (Auto) 0.3 L Baso % (Auto) 0.2 Neut # (Auto) 9700 H Lymph # (Auto) 900 L Harrison # (Auto) 600 Eos # (Auto) 0 Baso # (Auto) 0 ABG pH ABG pCO2 ABG pO2 ABG HCO3 ABG Total CO2 ABG O2 Saturation ABG Base Excess FiO2 Sodium 132 L Potassium 4.7 Chloride 95 L Carbon Dioxide 29 BUN 24 H Creatinine 1.17 H Estimated GFR 47.2 L BUN/Creatinine Ratio 20.5 Glucose 209 H Hemoglobin A1c 8.9 H Calcium 8.5 Phosphorus Magnesium Total Bilirubin 1.1 AST 23 ALT 18 Alkaline Phosphatase 74 Total Protein 6.3 Albumin 3.2 L Globulin 3.1 Albumin/Globulin Ratio 1.0 Procalcitonin Urine Color Urine Appearance Urine pH Ur Specific [place] Urine Protein Urine Glucose (UA) Urine Ketones Urine Occult Blood Urine Nitrate Urine Bilirubin Urine Urobilinogen Ur Leukocyte Esterase Urine RBC Urine WBC Ur Squamous Epith Cells Urine Bacteria Ur Culture Indicated? 05/03/20 05/03/20 05/04/20 19:24 19:24 03:59 WBC RBC Hgb Hct MCV MCH MCHC RDW Plt Count Neut % (Auto) Lymph % (Auto) [place] % (Auto) Eos % (Auto) Baso % (Auto) Neut # (Auto) Lymph # (Auto) [place] # (Auto) Eos # (Auto) Baso # (Auto) ABG pH 7.39 ABG pCO2 46.0 H ABG pO2 63 L ABG HCO3 28 H ABG Total CO2 29 ABG O2 Saturation 91 L ABG Base Excess 3.0 H FiO2 50 Sodium Potassium Chloride Carbon Dioxide BUN Creatinine Estimated GFR BUN/Creatinine Ratio Glucose Hemoglobin A1c Calcium Phosphorus Magnesium 1.6 Total Bilirubin AST ALT Alkaline Phosphatase Total Protein Albumin Globulin Albumin/Globulin Ratio Procalcitonin 0.20 Urine Color Urine Appearance Urine pH Ur Specific [place] Urine Protein Urine Glucose (UA) Urine Ketones Urine Occult Blood Urine Nitrate Urine Bilirubin Urine Urobilinogen Ur Leukocyte Esterase Urine RBC Urine WBC Ur Squamous Epith Cells Urine Bacteria Ur Culture Indicated? 05/04/20 05/04/20 05/04/20 05:18 05:18 05:18 WBC 12.2 H RBC 5.26 H Hgb 13.6 Hct 43.0 MCV 81.8 MCH 26.0 MCHC 31.7 RDW 16.8 H Plt Count 206 Neut % (Auto) 78.3 H Lymph % (Auto) 12.7 L Harrison % (Auto) 8.5 Eos % (Auto) 0.2 L Baso % (Auto) 0.3 Neut # (Auto) 9600 H Lymph # (Auto) 1500 Harrison # (Auto) 1000 H Eos # (Auto) 0 Baso # (Auto) 0 ABG pH ABG pCO2 ABG pO2 ABG HCO3 ABG Total CO2 ABG O2 Saturation ABG Base Excess FiO2 Sodium 131 L Potassium 5.1 Chloride 95 L Carbon Dioxide 28 BUN 31 H Creatinine 2.05 H Estimated GFR 24.7 L BUN/Creatinine Ratio 15.1 Glucose 194 H Hemoglobin A1c Calcium 8.3 L Phosphorus 4.7 H Magnesium 1.6 Total Bilirubin AST ALT Alkaline Phosphatase Total Protein Albumin Globulin Albumin/Globulin Ratio Procalcitonin 5.04 H Urine Color Urine Appearance Urine pH Ur Specific [place] Urine Protein Urine Glucose (UA) Urine Ketones Urine Occult Blood Urine Nitrate Urine Bilirubin Urine Urobilinogen Ur Leukocyte Esterase Urine RBC Urine WBC Ur Squamous Epith Cells Urine Bacteria Ur Culture Indicated? 05/04/20 08:25 WBC RBC Hgb Hct MCV MCH MCHC RDW Plt Count Neut % (Auto) Lymph % (Auto) [place] % (Auto) Eos % (Auto) Baso % (Auto) Neut # (Auto) Lymph # (Auto) [place] # (Auto) Eos # (Auto) Baso # (Auto) ABG pH ABG pCO2 ABG pO2 ABG HCO3 ABG Total CO2 ABG O2 Saturation ABG Base Excess FiO2 Sodium Potassium Chloride Carbon Dioxide BUN Creatinine Estimated GFR BUN/Creatinine Ratio Glucose Hemoglobin A1c Calcium Phosphorus Magnesium Total Bilirubin AST ALT Alkaline Phosphatase Total Protein Albumin Globulin Albumin/Globulin Ratio Procalcitonin Urine Color Yellow Urine Appearance Sl cloudy Urine pH 5.0 Ur Specific [place] 1.010 Urine Protein 1+ H Urine Glucose (UA) Negative Urine Ketones Negative Urine Occult Blood 2+ H Urine Nitrate Negative Urine Bilirubin Negative Urine Urobilinogen 0.2 Ur Leukocyte Esterase Negative Urine RBC 10-30/hpf H Urine WBC 0-1/hpf Ur Squamous Epith Cells 0-1 /hpf Urine Bacteria Moderate (10-30) H Ur Culture Indicated? Cult not indicated Assessment & Plan Post-op Postoperative Procedures: Procedures Operation Date: 05/03/20 12:30 Actual Procedures Side Surgeon p Exploratory Laparotomy GEN Joseluis Camp MD Postoperative plan narrative: 59-year-old female with morbid obesity,diabetes, COPD and congestive heart failure postoperative day 1 after a exploratory laparotomy small bowel resection for a strangulated umbilical hernia containing necrotic small bowel. She remains intubated for respiratory insufficiency. -spontaneous breathing trial today he will move towards extubation if able -acute kidney injury minimally responsive to IV fluids creatinine has doubled to 2.0 continue Harrell for or monitoring of urine output renal ultrasound and urine electrolytes ordered. Harrell has been irrigated does not appear to be obstructed and there is a minimal amount of urine within the bladder consistent with intrinsic kidney dysfunction. We will monitor -diabetes continue insulin sliding scale -SCDs and Lovenox for VT prophylaxis Quality VTE Deep Vein Thrombosis/Pulmonary Embolism Present on Admission: No
--- NOTE | 2020-05-04 14:34 | PC.NURSE ---
Day Shift Note Pt sedated to RASS of -2 on fentanyl 0.7 mcg/kg/hr and propofol 15-35 mcg/kg/min (currently at 30 mcg/kg/min). Does open eyes to voice and able to follow commands and make needs known. Dilaudid IV administered for pt report of pain this AM, denies pain this afternoon and is resting quietly. Sedation vacation done this AM at 0930 and breathing trial attempted with RT at bedside. Pt required much prompting to take breaths and then would become tachypneic to the 30s. Placed back on ventilator settings by RT after about 30 min and sedation restarted. SpO2 95% with FiO2 at 35%. Exp. wheezes throughout. SR in the 80-90s. SBP 80s to 90s, MAP 60 and above. Urine output 150 ml this shift out the Harrell. Harrell patent and draining clear yellow urine. Bilateral soft wrist restraints in place. Turning every 2 hours. Call light within reach.
[2020-05-04] MEDS: ALBUTEROL/IPRATROPIUM 3 ML AMPUL INH ×4 (15:18→22:43)
--- NOTE | 2020-05-04 16:45 | DI.RAD.S_ITS ---
PROCEDURE: XR CHEST 1V INDICATIONS: O2 dependent COPD, s/p exploratory lap, post-op ventilation TECHNIQUE: One view of the chest was acquired. COMPARISON: [facility], , CHEST 1 VIEW, 10/11/2017, 18:00. [facility], CR, XR CHEST 1V, 05/03/2020, 11:08. [facility], CR, XR CHEST 1V, 05/03/2020, 16:52. FINDINGS: Surgical changes and devices: An endotracheal tube is seen, with the tip 3 cm above the fabian. A gastric tube is seen, with the tip not visible, yet traversing below the level of the diaphragm. Lungs and pleura: Lungs are clear. No pleural effusions or pneumothorax. Mediastinum: The cardiac contours are moderately enlarged. The aorta demonstrates calcification and tortuosity. Bones and chest wall: No suspicious bony lesions. Age-appropriate bony degenerative changes are seen. Overlying soft tissues appear unremarkable. IMPRESSION: The tip of the endotracheal tube is seen 3 cm above the fabian. Moderate cardiomegaly. Dictated by: Tj Cary M.D. on 05/04/2020 at 16:49 Approved by: Tj Cary M.D. on 05/04/2020 at 16:50
--- NOTE | 2020-05-04 17:15 | PM.PN.1 ---
Subjective Subjective Date Patient Seen: 05/04/20 Interval history: Joyce Harrison is a 59-year-old female with a past medical history significant for hypertension, diabetes mellitus type 2, non-insulin using, oxygen-dependent COPD on 3 L at baseline, systolic congestive heart failure, obstructive sleep apnea on CPAP, morbid obesity and depression who presented to the ED for abrupt onset abdominal pain and found to have strangulated hernia. Continue was consulted for management of ventilator and comorbidities. Subjective exam is unobtainable as patient is intubated and sedated. Patient with minimal urine and now rising creatinine overnight likely due to hypoperfusion with low normal BP due to sedation. Recommend lighten sedation as much as possible and intermittent IV fluid boluses. Performed PST this morning of 06/29 which the patient failed after 20 minutes due to intermittent tachypnea and apnea, tachycardia and low BP. Attempted another PST this afternoon of 06/02 which patient did well with good TV in 400's for 1.5 hours then discontinued. Patient will likely be able to extubate tomorrow. Exam Vital Signs (past 8 hours): - 05/04/20 14:06 05/04/20 15:09 05/04/20 15:18 Temperature Pulse Rate 88 90 90 Respiratory Rate 16 16 16 Blood Pressure 80/52 L 93/59 L Pulse Oximetry 96 95 94 05/04/20 16:00 05/04/20 16:13 05/04/20 17:00 Temperature 97.6 F Pulse Rate 104 H 104 H Respiratory Rate 18 15 Blood Pressure 90/55 L 92/68 Pulse Oximetry 98 95 92 05/04/20 18:00 05/04/20 19:00 05/04/20 20:00 Temperature 97.3 F L 97.2 F L Pulse Rate 101 H 98 H 97 H Respiratory Rate 13 16 16 Blood Pressure 99/59 L 100/66 96/62 Pulse Oximetry 93 93 95 05/04/20 20:27 Temperature Pulse Rate Respiratory Rate Blood Pressure Pulse Oximetry 97 Fraction of Inspired Oxygen 40 Oxygen Delivery Method Mechanical Ventilation Oxygen Flow Rate 0 Narrative Exam Narrative: General: Older morbidly obese female lying in bed intubated and sedated. HEENT: Normocephalic, atraumatic. External ears without defect. Pupils pinpoint, equal, round, and reactive to light. Anicteric sclerae, moist and conjunctivae. Endotracheal tube and NG tube in place. Neck: No jugular venous distension. No lymphadenopathy or thyromegaly. Cardiovascular: Regular rate and rhythm without murmurs, rubs, or gallops appreciated. Pulmonary: Scattered rhonchi otherwise clear to auscultation bilaterally in anterior lung marina without crackles or wheezes. Passive respirations on ventilator. Abdomen: Soft, obese, large vertical surgical wound with wound VAC in place, bowel sounds present. Extremities: No clubbing, cyanosis, or edema. Skin: Normal temperature, turgor, and texture; no rash, ulcers, or subcutaneous nodules appreciated. Objective Labs Result Diagrams: 05/04/20 18:05 05/04/20 18:05 Labs: Laboratory Results - last 24 hr 05/03/20 05/03/20 05/03/20 19:24 19:24 19:24 WBC RBC Hgb Hct MCV MCH MCHC RDW Plt Count Neut % (Auto) Lymph % (Auto) [place] % (Auto) Eos % (Auto) Baso % (Auto) Neut # (Auto) Lymph # (Auto) [place] # (Auto) Eos # (Auto) Baso # (Auto) ABG pH ABG pCO2 ABG pO2 ABG HCO3 ABG Total CO2 ABG O2 Saturation ABG Base Excess FiO2 Sodium Potassium Chloride Carbon Dioxide BUN Creatinine Estimated GFR BUN/Creatinine Ratio Glucose Hemoglobin A1c 8.9 H Calcium Phosphorus Magnesium 1.6 Total Bilirubin AST ALT Alkaline Phosphatase Total Protein Albumin Globulin Albumin/Globulin Ratio Procalcitonin 0.20 Urine Color Urine Appearance Urine pH Ur Specific [place] Urine Protein Urine Glucose (UA) Urine Ketones Urine Occult Blood Urine Nitrate Urine Bilirubin Urine Urobilinogen Ur Leukocyte Esterase Urine RBC Urine WBC Ur Squamous Epith Cells Urine Bacteria Ur Culture Indicated? 05/04/20 05/04/20 05/04/20 03:59 05:18 05:18 WBC 12.2 H RBC 5.26 H Hgb 13.6 Hct 43.0 MCV 81.8 MCH 26.0 MCHC 31.7 RDW 16.8 H Plt Count 206 Neut % (Auto) 78.3 H Lymph % (Auto) 12.7 L [place] % (Auto) 8.5 Eos % (Auto) 0.2 L Baso % (Auto) 0.3 Neut # (Auto) 9600 H Lymph # (Auto) 1500 [place] # (Auto) 1000 H Eos # (Auto) 0 Baso # (Auto) 0 ABG pH 7.39 ABG pCO2 46.0 H ABG pO2 63 L ABG HCO3 28 H ABG Total CO2 29 ABG O2 Saturation 91 L ABG Base Excess 3.0 H FiO2 50 Sodium 131 L Potassium 5.1 Chloride 95 L Carbon Dioxide 28 BUN 31 H Creatinine 2.05 H Estimated GFR 24.7 L BUN/Creatinine Ratio 15.1 Glucose 194 H Hemoglobin A1c Calcium 8.3 L Phosphorus 4.7 H Magnesium 1.6 Total Bilirubin AST ALT Alkaline Phosphatase Total Protein Albumin Globulin Albumin/Globulin Ratio Procalcitonin Urine Color Urine Appearance Urine pH Ur Specific [place] Urine Protein Urine Glucose (UA) Urine Ketones Urine Occult Blood Urine Nitrate Urine Bilirubin Urine Urobilinogen Ur Leukocyte Esterase Urine RBC Urine WBC Ur Squamous Epith Cells Urine Bacteria Ur Culture Indicated? 05/04/20 05/04/20 05/04/20 05:18 08:25 15:55 WBC RBC Hgb Hct MCV MCH MCHC RDW Plt Count Neut % (Auto) Lymph % (Auto) [place] % (Auto) Eos % (Auto) Baso % (Auto) Neut # (Auto) Lymph # (Auto) [place] # (Auto) Eos # (Auto) Baso # (Auto) ABG pH 7.36 ABG pCO2 49.9 H ABG pO2 57 L ABG HCO3 28 H ABG Total CO2 30 ABG O2 Saturation 88 L ABG Base Excess 3.0 H FiO2 35 Sodium Potassium Chloride Carbon Dioxide BUN Creatinine Estimated GFR BUN/Creatinine Ratio Glucose Hemoglobin A1c Calcium Phosphorus Magnesium Total Bilirubin AST ALT Alkaline Phosphatase Total Protein Albumin Globulin Albumin/Globulin Ratio Procalcitonin 5.04 H Urine Color Yellow Urine Appearance Sl cloudy Urine pH 5.0 Ur Specific [place] 1.010 Urine Protein 1+ H Urine Glucose (UA) Negative Urine Ketones Negative Urine Occult Blood 2+ H Urine Nitrate Negative Urine Bilirubin Negative Urine Urobilinogen 0.2 Ur Leukocyte Esterase Negative Urine RBC 10-30/hpf H Urine WBC 0-1/hpf Ur Squamous Epith Cells 0-1 /hpf Urine Bacteria Moderate (10-30) H Ur Culture Indicated? Cult not indicated 05/04/20 05/04/20 18:05 18:05 WBC 13.3 H RBC 4.91 Hgb 13.0 Hct 40.5 MCV 82.5 MCH 26.4 MCHC 32.0 RDW 16.7 H Plt Count 197 Neut % (Auto) 77.2 H Lymph % (Auto) 11.9 L [place] % (Auto) 9.9 Eos % (Auto) 0.7 L Baso % (Auto) 0.3 Neut # (Auto) 47953 H Lymph # (Auto) 1600 [place] # (Auto) 1300 H Eos # (Auto) 100 Baso # (Auto) 0 ABG pH ABG pCO2 ABG pO2 ABG HCO3 ABG Total CO2 ABG O2 Saturation ABG Base Excess FiO2 Sodium 132 L Potassium 4.3 Chloride 96 L Carbon Dioxide 28 BUN 37 H Creatinine 2.08 H Estimated GFR 24.3 L BUN/Creatinine Ratio 17.8 Glucose 132 H Hemoglobin A1c Calcium 8.4 Phosphorus Magnesium Total Bilirubin 0.6 AST 163 H ALT 180 H Alkaline Phosphatase 74 Total Protein 6.1 L Albumin 3.1 L Globulin 3.0 Albumin/Globulin Ratio 1.0 Procalcitonin Urine Color Urine Appearance Urine pH Ur Specific [place] Urine Protein Urine Glucose (UA) Urine Ketones Urine Occult Blood Urine Nitrate Urine Bilirubin Urine Urobilinogen Ur Leukocyte Esterase Urine RBC Urine WBC Ur Squamous Epith Cells Urine Bacteria Ur Culture Indicated? Assessment & Plan Assessment & Plan narrative: Joyce Harrison is a 59-year-old female with a past medical history significant for hypertension, diabetes mellitus type 2, non-insulin using, oxygen-dependent COPD on 3 L at baseline, systolic congestive heart failure, obstructive sleep apnea on CPAP, morbid obese and depression who presented to the ED for abrupt onset abdominal pain and found to have strangulated hernia. Continue was consulted for management of ventilator and comorbidities. 1. Strangulated hernia status post exploratory laparotomy and small-bowel resection, present on admission. Active. -Continue postoperative management per primary team General surgery. 2. Acute on chronic respiratory failure in setting of oxygen-dependent COPD, present on admission. Stable. -Does not represent acute exacerbation of COPD. Patient is on 3 L of oxygen at baseline. -Repeat chest x-ray did not demonstrate any acute cardiopulmonary process with COPD changes. -Patient was left on ventilator postoperatively for recovery purposes. Continue respiratory therapy evaluation and treatment. Continue as needed albuterol and DuoNebs. Continue ventilator at current settings and monitor ABG to adjust ventilator settings. Continue fentanyl gtt and propofol gtt for sedation and titrate to light sedation. Continue daily sedation vacation and pressure support/spontaneous breathing trial to wean off vent. 3. Acute kidney injury, present on admission. Active. -Patient BP remained low normal and mildly hypotensive overnight likely due to sedation and UOP low with worsening kidney function. -Initial creatinine 0.80. Creatinine increased to 2.08. -Ordered renal ultrasound, pending. Advanced and flush Harrell catheter without improvement in urine output. -Avoid nephrotoxic agents and optimize renal perfusion. -Continue to monitor creatinine daily. 4. Systolic congestive heart failure, chronic, present on admission. Stable. -Does not represent acute CHF exacerbation. Patient appears to be followed by [facility] cardiology Dr. Fowler and will request outside records. -Repeat chest x-ray did not demonstrate any acute cardiopulmonary process with COPD changes. ProBNP 842. -Held home medications including: Diltiazem ER 180 mg twice daily, furosemide 40 mg daily, losartan 100 mg daily, and spironolactone 25 mg daily for now as patient is immediate post-op and risk of hypotension is high in setting of incarcerated hernia and sedation. -Echocardiogram demonstrated left ventricular systolic function appears to be mildly depressed in a global fashion with an ejection fraction grossly estimated at 45 to 50% without anyobvious focal wall motion abnormality. Left ventricular volumes are mildly increased with moderate concentric LVH suggestive of hypertensive heartdisease. Diastolic function could not be assessed because of her sinus tachycardia. The right ventricle appears normal in size and systolic function. Right ventricular systolic pressure cannot be estimated but CVP is likely around 3 mmHg. There is mild biatrial enlargement. The mitral valve is not well seen but grossly appears normal with probable mild to moderate mitral regurgitation with an eccentric regurgitant jet. There is mild aortic valve sclerosis without stenosis with mild aortic regurgitation. The ascending aorta is mild to moderately enlarged. -Avoid excessive IV fluid hydration and recommend intermittent boluses to treat low normal BP/hypotension. Plan to diurese after patient has stabilized. -Continue to monitor strict I&O and daily weights. 5. Diabetes mellitus type 2, non-insulin using, chronic, present on admission. Stable. -Hemoglobin A1c 8.9% indicative of poor glycemic control. -Held Januvia. -Continue every 6 hour blood glucose checks and medium dose correctional scale insulin every 6 hours while NPO, intubated and sedated. 6. Hypertension, chronic, present on admission. Stable. -Continue to hold home medications as above. 7. Depression, chronic, present on admission. Stable. -Continue to hold home bupropion 150 mg daily. 8. Obstructive sleep apnea on CPAP, chronic, present on admission. Stable. -Plan to implement RT home CPAP protocol once patient is extubated. 9. Morbid obesity, chronic, present on admission. Stable. -BMI 40.4 -Due to morbid obesity patient is high risk of complication or bad outcome intra and postoperatively. -Plan to consult dietitian when patient has been extubated. Code status: Full code VTE prophylaxis: Enoxaparin Thank you for this most interesting consult. Medicine team will continue to follow along with you. Quality VTE Deep Vein Thrombosis/Pulmonary Embolism Present on Admission: No
[2020-05-04 17:50] LABS: Fractionated Inspired Oxygen 35; HCO3 ABG 28 mmol/L (22-26); Oxygen Saturation ABG 88 % (95-100); PCO2 ABG 49.9 mmHg (35-45); PO2 ABG 57 mmHg (80-100); TCO2 ABG 30 mmol/L (21-31); pH ABG 7.36 (7.35-7.45)
[2020-05-04 18:20] LABS: Add Manual Diff / Slide Review NO; Basophils Absolute Auto 0 /uL (0-100); Basophils Percent Auto 0.3 % (0-2); Eosinophils Absolute Auto 100 /uL (0-450); Eosinophils Percent Auto 0.7 % (2-4); Hematocrit 40.5 % (36-46); Lymphocytes Absolute Auto 1600 /uL (1100-4500); Lymphocytes Percent Auto 11.9 % (25-40); Mean Corpuscular Hemoglobin 26.4 PG (26-34); Mean Corpuscular Volume 82.5 fL (80-100); Monocytes Absolute Auto 1300 /uL (0-900); Monocytes Percent Auto 9.9 % (3-14); Neutrophils Absolute Auto 10200 /uL (1500-7000); Neutrophils Percent Auto 77.2 % (50-75); Platelet Count 197 X10^3/uL (150-400); Red Blood Cell Count 4.91 X10^6/uL (4.0-5.2); Red Cell Distribution Width 16.7 % (11.6-14.8); White Blood Cell Count 13.3 X10^3/uL (4.5-11.0)
[2020-05-04 18:30] LABS: Alanine Aminotransferase 180 IU/L (<35); Albumin 3.1 g/dL (3.5-5.0); Alkaline Phosphatase 74 U/L (38-126); Aspartate Aminotransferase 163 IU/L (14-36); BUN Creatinine Ratio 17.8 (6-22); Bilirubin Total 0.6 mg/dL (0.2-1.3); Blood Urea Nitrogen 37 mg/dL (7-17); Calcium 8.4 mg/dL (8.4-10.2); Carbon Dioxide 28 mmol/L (22-32); Chloride 96 mmol/L (98-107); Estimated Glomerular Filt Rate 24.3 mL/min (>60); Glucose 132 mg/dL (80-110); HEMOLYSIS < 15 (0-50); Potassium 4.3 mmol/L (3.4-5.1); Sodium 132 mmol/L (137-145); Total Protein 6.1 g/dL (6.3-8.2)
[2020-05-04] MEDS: HYDROMORPHONE 0.5 MG INJ IV (19:10)
[2020-05-04] MEDS: propofoL 1,000 MG/100 ML VIAL 9.389 MG IV (19:16)
--- NOTE | 2020-05-04 19:29 | PC.NURSE ---
1630 Sedation vacation started and pt placed on pressure support breathing trial - Pt alert and cooperative with care, needed only rare reminders to slow breathing and relax. Placed back of previous vent settings at 1810. Propofol increased to 20mcg/kg/min. Rass score 0. Medicated with Dilaudid 0.5mg at 1915 for c/o pain
[2020-05-04] MEDS: PIPERACILLIN-TAZO 4.5 GM/100 ML FROZ.PIGGY IV (22:48)
[2020-05-05] VITALS (37 sets, daily range): BP systolic 92–139; BP diastolic 51–78; PULSE 103–117; RESP 12–28; TEMP 36.1–36.8; O2SAT 89–98
[2020-05-05] MEDS: ALBUTEROL/IPRATROPIUM 3 ML AMPUL INH ×3 (02:14→17:58)
[2020-05-05] MEDS: HYDROMORPHONE 0.5 MG INJ IV ×3 (03:09→11:17)
[2020-05-05] MEDS: PIPERACILLIN-TAZO 4.5 GM/100 ML FROZ.PIGGY IV ×3 (03:58→17:30)
[2020-05-05] MEDS: propofoL 1,000 MG/100 ML VIAL 9.389 MG IV (03:59)
[2020-05-05] MEDS: LACTATED RINGERS 1,000 ML 150 ML IV ×3 (04:35→18:26)
[2020-05-05 05:34] LABS: Add Manual Diff / Slide Review NO; Basophils Absolute Auto 0 /uL (0-100); Basophils Percent Auto 0.3 % (0-2); Eosinophils Absolute Auto 100 /uL (0-450); Eosinophils Percent Auto 0.9 % (2-4); Hematocrit 41.5 % (36-46); Hemoglobin 13.2 g/dL (12.0-16.0); Lymphocytes Absolute Auto 1200 /uL (1100-4500); Lymphocytes Percent Auto 9.2 % (25-40); Mean Corpuscular HGB Conc 31.7 % (30-36); Mean Corpuscular Hemoglobin 26.3 PG (26-34); Mean Corpuscular Volume 82.9 fL (80-100); Monocytes Absolute Auto 1200 /uL (0-900); Monocytes Percent Auto 8.8 % (3-14); Neutrophils Absolute Auto 10800 /uL (1500-7000); Neutrophils Percent Auto 80.8 % (50-75); Platelet Count 184 X10^3/uL (150-400); Red Blood Cell Count 5.01 X10^6/uL (4.0-5.2); Red Cell Distribution Width 17.2 % (11.6-14.8); White Blood Cell Count 13.4 X10^3/uL (4.5-11.0)
[2020-05-05 05:38] LABS: BUN Creatinine Ratio 21.1 (6-22); Blood Urea Nitrogen 40 mg/dL (7-17); Calcium 8.4 mg/dL (8.4-10.2); Carbon Dioxide 27 mmol/L (22-32); Chloride 94 mmol/L (98-107); Glucose 185 mg/dL (80-110); HEMOLYSIS < 15 (0-50); Magnesium 2.2 mg/dL (1.6-2.3); Phosphorous 5.8 mg/dL (2.8-4.1); Sodium 132 mmol/L (137-145)
[2020-05-05] MEDS: INSULIN ASPART 100 UNIT/ML INSULN PEN SUBCUT ×3 (06:03→18:09)
[2020-05-05 06:11] LABS: Procalcitonin 2.49 ng/mL (<0.5)
--- NOTE | 2020-05-05 06:27 | PC.NURSE ---
Leasing Property Manager Note-Patient remains on ventilator, no changes to settings from previous shift. Sedation with propofol gtt 10-20mcg/min, patient does rouse easily, follows directions, is anxious during coughing and turning, but is cooperative. Soft wrist restraints remain on to keep her from unintentionally pulling at lines and tubes. Fentanyl gtt is at 0.7mcg, an additional 0.5mg IV Dilaudid given at [address] 100-115, BP 90s/50s with MAP>65. Total 350ml UOP, 250ml from NGT.
[2020-05-05] MEDS: fentaNYL 1,000 MCG in DEXTROSE 5% IN WATER 250 ML 19.718 ML IV (09:00)
[2020-05-05] MEDS: ALBUTEROL 2.5 MG/3 ML NEB (ADULT) INH (09:05)
[2020-05-05] MEDS: PANTOPRAZOLE 40 MG VIAL IV (09:08)
[2020-05-05] MEDS: ENOXAPARIN 30 MG/0.3 ML SYRINGE SUBCUT (09:08)
[2020-05-05 14:10] LABS: HCO3 ABG 27 mmol/L (22-26); Oxygen Saturation ABG 93 % (95-100); PCO2 ABG 46.9 mmHg (35-45); PO2 ABG 68 mmHg (80-100); TCO2 ABG 28 mmol/L (21-31); pH ABG 7.36 (7.35-7.45)
--- NOTE | 2020-05-05 14:34 | PC.NURSE ---
Day Shift Note Pt vented on AM assessment. Pt bathed and then sedation turned off at 0850 for sedation vacation. Pt calm and cooperative, able to follow commands and make needs known. Breathing trial started at 0934 per RT and pt tolerated for over an hour maintaining oxygen saturations in the 93-96% range, RR 18-20 bpm, and pulling good volumes. Dr. Zuniga and Dr. Camp both notified and orders received to extubate. RT at bedside and pt extubated to 3L NC at 1051. Tolerated well. Restraints removed at 0930. Oxygen increased to 4L NC while pt sleeping intermittently to maintain saturations in the 90-94%. ST in the low 100s to 110s this shift. Pt reports pain to abdomen and is receiving Dilaudid prn (given twice this shift). Turning every 2 hours. Wd vac and Harrell in place and patent. Daughter at bedside. Call light within reach.
[2020-05-05] MEDS: HYDROMORPHONE 1 MG INJ IV ×3 (14:47→22:17)
--- NOTE | 2020-05-05 15:07 | PM.PN.1 ---
Subjective Subjective Date Patient Seen: 05/05/20 Interval history: The patient is a 59-year-old female who is status post extubation following surgical repair of an incarcerated abdominal hernia. She tolerated extubation without difficulty. Patient is in significant discomfort. She has received recent pain medication. She denies any shortness of breath. No nausea at this time. She has excellent urine output, and improvement in her renal function. Exam Vital Signs (past 8 hours): - 05/05/20 08:00 05/05/20 09:00 05/05/20 12:00 Temperature 97.6 F 98.2 F Pulse Rate 104 H 109 H 114 H Respiratory Rate 16 16 18 Blood Pressure 95/56 L 98/59 L 123/57 L Pulse Oximetry 97 97 93 Fraction of Inspired Oxygen 0.5 Oxygen Delivery Method Nasal Cannula Oxygen Flow Rate 5 Narrative Exam Narrative: Morbidly obese female lying in bed somewhat uncomfortable Lungs: Decreased breath sounds but clear to auscultation Cardiac exam: Regular rate and rhythm normal S1-S2 Abdomen: Obese soft nontender, mildly distended, wound VAC in place NG tube in place draining accordingly Extremities: No edema Objective Labs Result Diagrams: 05/05/20 04:50 05/05/20 04:50 Labs: Laboratory Results - last 24 hr 05/04/20 05/04/20 05/04/20 15:55 18:05 18:05 WBC 13.3 H RBC 4.91 Hgb 13.0 Hct 40.5 MCV 82.5 MCH 26.4 MCHC 32.0 RDW 16.7 H Plt Count 197 Neut % (Auto) 77.2 H Lymph % (Auto) 11.9 L [place] % (Auto) 9.9 Eos % (Auto) 0.7 L Baso % (Auto) 0.3 Neut # (Auto) 14118 H Lymph # (Auto) 1600 [place] # (Auto) 1300 H Eos # (Auto) 100 Baso # (Auto) 0 ABG pH 7.36 ABG pCO2 49.9 H ABG pO2 57 L ABG HCO3 28 H ABG Total CO2 30 ABG O2 Saturation 88 L ABG Base Excess 3.0 H FiO2 35 Sodium 132 L Potassium 4.3 Chloride 96 L Carbon Dioxide 28 BUN 37 H Creatinine 2.08 H Estimated GFR 24.3 L BUN/Creatinine Ratio 17.8 Glucose 132 H Calcium 8.4 Phosphorus Magnesium Total Bilirubin 0.6 AST 163 H ALT 180 H Alkaline Phosphatase 74 Total Protein 6.1 L Albumin 3.1 L Globulin 3.0 Albumin/Globulin Ratio 1.0 Procalcitonin 05/05/20 05/05/20 05/05/20 04:50 04:50 04:50 WBC 13.4 H RBC 5.01 Hgb 13.2 Hct 41.5 MCV 82.9 MCH 26.3 MCHC 31.7 RDW 17.2 H Plt Count 184 Neut % (Auto) 80.8 H Lymph % (Auto) 9.2 L [place] % (Auto) 8.8 Eos % (Auto) 0.9 L Baso % (Auto) 0.3 Neut # (Auto) 49428 H Lymph # (Auto) 1200 [place] # (Auto) 1200 H Eos # (Auto) 100 Baso # (Auto) 0 ABG pH ABG pCO2 ABG pO2 ABG HCO3 ABG Total CO2 ABG O2 Saturation ABG Base Excess FiO2 Sodium 132 L Potassium 4.0 Chloride 94 L Carbon Dioxide 27 BUN 40 H Creatinine 1.90 H Estimated GFR 27.0 L BUN/Creatinine Ratio 21.1 Glucose 185 H Calcium 8.4 Phosphorus 5.8 H D Magnesium 2.2 Total Bilirubin AST ALT Alkaline Phosphatase Total Protein Albumin Globulin Albumin/Globulin Ratio Procalcitonin 2.49 H 05/05/20 05:40 WBC RBC Hgb Hct MCV MCH MCHC RDW Plt Count Neut % (Auto) Lymph % (Auto) Chambers % (Auto) Eos % (Auto) Baso % (Auto) Neut # (Auto) Lymph # (Auto) [place] # (Auto) Eos # (Auto) Baso # (Auto) ABG pH 7.36 ABG pCO2 46.9 H ABG pO2 68 L ABG HCO3 27 H ABG Total CO2 28 ABG O2 Saturation 93 L ABG Base Excess 1.0 FiO2 0.40 Sodium Potassium Chloride Carbon Dioxide BUN Creatinine Estimated GFR BUN/Creatinine Ratio Glucose Calcium Phosphorus Magnesium Total Bilirubin AST ALT Alkaline Phosphatase Total Protein Albumin Globulin Albumin/Globulin Ratio Procalcitonin Assessment & Plan Assessment & Plan narrative: Strangulated hernia status post exploratory laparotomy and small-bowel resection, present on admission. Active. -Continue postoperative management per primary team General surgery. 2. Acute on chronic respiratory failure in setting of oxygen-dependent COPD, present on admission. Stable. -Does not represent acute exacerbation of COPD. Patient is on 3 L of oxygen at baseline. -Repeat chest x-ray did not demonstrate any acute cardiopulmonary process with COPD changes. -patient was successfully extubated, will continue oxygen and pain medications as needed as needed. -given renal insufficiency will defer diuresis, will continue IV hydration and watch for heart failure closely. 3. Acute kidney injury, present on admission. Active. -continue IV fluids at current rate -will continue to monitor renal function closely -avoid next nephrotoxic agent 4. Systolic congestive heart failure, chronic, present on admission. Stable. -Does not represent acute CHF exacerbation. Patient appears to be followed by [facility] cardiology Dr. Fowler and will request outside records. -Repeat chest x-ray did not demonstrate any acute cardiopulmonary process with COPD changes. ProBNP 842. -Held home medications including: Diltiazem ER 180 mg twice daily, furosemide 40 mg daily, losartan 100 mg daily, and spironolactone 25 mg daily for now as patient is immediate post-op and risk of hypotension is high in setting of incarcerated hernia and sedation. -Echocardiogram demonstrated left ventricular systolic function appears to be mildly depressed in a global fashion with an ejection fraction grossly estimated at 45 to 50% without anyobvious focal wall motion abnormality. Left ventricular volumes are mildly increased with moderate concentric LVH suggestive of hypertensive heartdisease. Diastolic function could not be assessed because of her sinus tachycardia. The right ventricle appears normal in size and systolic function. Right ventricular systolic pressure cannot be estimated but CVP is likely around 3 mmHg. There is mild biatrial enlargement. The mitral valve is not well seen but grossly appears normal with probable mild to moderate mitral regurgitation with an eccentric regurgitant jet. There is mild aortic valve sclerosis without stenosis with mild aortic regurgitation. The ascending aorta is mild to moderately enlarged. -Avoid excessive IV fluid hydration and recommend intermittent boluses to treat low normal BP/hypotension. Plan to diurese after patient has stabilized. -Continue to monitor strict I&O and daily weights. 5. Diabetes mellitus type 2, non-insulin using, chronic, present on admission. Stable. -Hemoglobin A1c 8.9% indicative of poor glycemic control. -Held Januvia. -Continue every 6 hour blood glucose checks and medium dose correctional scale insulin every 6 hours while NPO, intubated and sedated. 6. Hypertension, chronic, present on admission. Stable. -Continue to hold home medications as above. 7. Depression, chronic, present on admission. Stable. -Continue to hold home bupropion 150 mg daily. 8. Obstructive sleep apnea on CPAP, chronic, present on admission. Stable. -Plan to implement RT home CPAP protocol once patient is extubated. 9. Morbid obesity, chronic, present on admission. Stable. -BMI 40.4 -Due to morbid obesity patient is high risk of complication or bad outcome intra and postoperatively. -Plan to consult dietitian once patient is able to take in p.o. she currently has an NG tube in place at this time Quality VTE Deep Vein Thrombosis/Pulmonary Embolism Present on Admission: No
--- NOTE | 2020-05-05 15:12 | DIET.PN ---
Dietary Progress Note Pt was extubated today. Awaiting alert from care team regarding feeding goals. This consult is specifying obesity education once appropriate.
--- NOTE | 2020-05-05 15:18 | CM.DPC ---
DCP Cont: Checked in with patient. She has been extubated, but is sleeping. Daughter, Sachin, is at bedside. Discussed some discharge planning goals. Daughter stated, I really don't want my mom going to rehab, and I don't think she would want to go either. She has concerns about her mother coleen COVID. Daughter confirmed that patient does reside at home with her spouse, Jerod. Sachin indicated that she is a caregiver, and is willing to take care of her mother at home if needed. Discussed home health as well. P: DCP to continue to follow for needs and be available for any resources needed. Tiarra Hannon RN/Junior Architect
--- NOTE | 2020-05-05 15:35 | PM.PNPO.1 ---
Subjective Subjective Date Patient Seen: 05/05/20 Time Patient Seen: 15:35 Interval history: No acute overnight events. She was extubated to nasal cannula this morning without issue after passing her spontaneous breathing trial. She is having incisional pain nasogastric tube remains in place no flatus or bowel movement. Exam Vital Signs (past 8 hours): - 05/05/20 08:00 05/05/20 09:00 05/05/20 12:00 Temperature 97.6 F 98.2 F Pulse Rate 104 H 109 H 114 H Respiratory Rate 16 16 18 Blood Pressure 95/56 L 98/59 L 123/57 L Pulse Oximetry 97 97 93 Fraction of Inspired Oxygen 0.5 Oxygen Delivery Method Nasal Cannula Oxygen Flow Rate 5 Narrative Exam Narrative: General adult woman morbidly obese alert oriented no acute distress Abdomen mildly distended appropriately tender to palpation wound VAC to midline Objective Labs Result Diagrams: 05/05/20 04:50 05/05/20 04:50 Labs: Laboratory Results - last 24 hr 05/04/20 05/04/20 05/04/20 15:55 18:05 18:05 WBC 13.3 H RBC 4.91 Hgb 13.0 Hct 40.5 MCV 82.5 MCH 26.4 MCHC 32.0 RDW 16.7 H Plt Count 197 Neut % (Auto) 77.2 H Lymph % (Auto) 11.9 L [place] % (Auto) 9.9 Eos % (Auto) 0.7 L Baso % (Auto) 0.3 Neut # (Auto) 11792 H Lymph # (Auto) 1600 [place] # (Auto) 1300 H Eos # (Auto) 100 Baso # (Auto) 0 ABG pH 7.36 ABG pCO2 49.9 H ABG pO2 57 L ABG HCO3 28 H ABG Total CO2 30 ABG O2 Saturation 88 L ABG Base Excess 3.0 H FiO2 35 Sodium 132 L Potassium 4.3 Chloride 96 L Carbon Dioxide 28 BUN 37 H Creatinine 2.08 H Estimated GFR 24.3 L BUN/Creatinine Ratio 17.8 Glucose 132 H Calcium 8.4 Phosphorus Magnesium Total Bilirubin 0.6 AST 163 H ALT 180 H Alkaline Phosphatase 74 Total Protein 6.1 L Albumin 3.1 L Globulin 3.0 Albumin/Globulin Ratio 1.0 Procalcitonin 05/05/20 05/05/20 05/05/20 04:50 04:50 04:50 WBC 13.4 H RBC 5.01 Hgb 13.2 Hct 41.5 MCV 82.9 MCH 26.3 MCHC 31.7 RDW 17.2 H Plt Count 184 Neut % (Auto) 80.8 H Lymph % (Auto) 9.2 L [place] % (Auto) 8.8 Eos % (Auto) 0.9 L Baso % (Auto) 0.3 Neut # (Auto) 97964 H Lymph # (Auto) 1200 [place] # (Auto) 1200 H Eos # (Auto) 100 Baso # (Auto) 0 ABG pH ABG pCO2 ABG pO2 ABG HCO3 ABG Total CO2 ABG O2 Saturation ABG Base Excess FiO2 Sodium 132 L Potassium 4.0 Chloride 94 L Carbon Dioxide 27 BUN 40 H Creatinine 1.90 H Estimated GFR 27.0 L BUN/Creatinine Ratio 21.1 Glucose 185 H Calcium 8.4 Phosphorus 5.8 H D Magnesium 2.2 Total Bilirubin AST ALT Alkaline Phosphatase Total Protein Albumin Globulin Albumin/Globulin Ratio Procalcitonin 2.49 H 05/05/20 05:40 WBC RBC Hgb Hct MCV MCH MCHC RDW Plt Count Neut % (Auto) Lymph % (Auto) [place] % (Auto) Eos % (Auto) Baso % (Auto) Neut # (Auto) Lymph # (Auto) [place] # (Auto) Eos # (Auto) Baso # (Auto) ABG pH 7.36 ABG pCO2 46.9 H ABG pO2 68 L ABG HCO3 27 H ABG Total CO2 28 ABG O2 Saturation 93 L ABG Base Excess 1.0 FiO2 0.40 Sodium Potassium Chloride Carbon Dioxide BUN Creatinine Estimated GFR BUN/Creatinine Ratio Glucose Calcium Phosphorus Magnesium Total Bilirubin AST ALT Alkaline Phosphatase Total Protein Albumin Globulin Albumin/Globulin Ratio Procalcitonin Assessment & Plan Post-op Postoperative Procedures: Procedures Operation Date: 05/03/20 12:30 Actual Procedures Side Surgeon p Exploratory Laparotomy GEN Joseluis Camp MD Postoperative plan narrative: 59-year-old female postoperative day 2 after an exploratory laparotomy small bowel resection for strangulated small bowel within a umbilical hernia. successfully extubated today. # postoperative ileus-continue nasogastric tube to intermittent low wall suction. Okay for ice chips and sips if nasogastric tube is working. Await return of bowel function. -OOB to chair. PT consult #DM-insulin sliding scale #COPD-Cont nebs #SCDs and pLovenox for VTE prophylaxis. Quality VTE Deep Vein Thrombosis/Pulmonary Embolism Present on Admission: No
--- NOTE | 2020-05-05 16:45 | DI.RAD.S_ITS ---
PROCEDURE: XR CHEST 1V INDICATIONS: O2 dependent COPD, s/p exploratory lap, post-op ventilation TECHNIQUE: One view of the chest was acquired. COMPARISON: [facility], , XR CHEST 1V, 05/04/2020, 16:48. FINDINGS: Surgical changes and devices: NG tube is unchanged. The patient has been extubated. Lungs and pleura: Subtle radiopacities are present at the left lung base unchanged from the study dated May 04, 2020. Right lung is clear. Lung Mediastinum: Mediastinal contours appear normal. Heart size is normal. Bones and chest wall: No suspicious bony lesions. Overlying soft tissues appear unremarkable. IMPRESSION: Left basilar pulmonary radiopacities. Differential considerations include atelectasis, aspiration, or infection. Dictated by: Keren Latif M.D. on 05/06/2020 at 9:00 Approved by: Keren Latif M.D. on 05/06/2020 at 9:03
--- NOTE | 2020-05-05 22:42 | PC.NURSE ---
Addendum entered by Eden Cuevas R.N. 05/05/20 22:50: Wound vac to continuous suction @ 125mmHG with serosangenous drainage. Original Note: Evening shift note: Pt extubated today at 1051, tolerated well, pt A/O x 3, able to make needs known. Currently on 4L NC saturating 92-96%, pt states that throat hurts and she doesn't like talking right now. Medicated with Dilaudid for pain x2 this shift. Harrell is draining clear, yellow urine. NG tube to right nare in place and connected to LIS. Pt refusing turning x3 this shift, educated pt of the need to reposition, pt becomes tearful and refuses. IV fluids infusing as ordered, bed low and locked, call light within reach, will continue to monitor.
[2020-05-06] VITALS (24 sets, daily range): BP systolic 119–153; BP diastolic 60–84; PULSE 90–115; RESP 12–24; TEMP 35.8–36.6; O2SAT 80–97
[2020-05-06] MEDS: LACTATED RINGERS 1,000 ML 150 ML IV (00:53)
[2020-05-06] MEDS: PIPERACILLIN-TAZO 4.5 GM/100 ML FROZ.PIGGY IV ×3 (00:53→17:44)
[2020-05-06] MEDS: dilTIAZem 5 MG/ML SDV 20 MG IV ×3 (00:54→09:29)
[2020-05-06] MEDS: HYDROMORPHONE 1 MG INJ IV ×6 (00:54→21:59)
[2020-05-06 05:30] LABS: Add Manual Diff / Slide Review NO; Basophils Absolute Auto 0 /uL (0-100); Basophils Percent Auto 0.2 % (0-2); Eosinophils Absolute Auto 200 /uL (0-450); Eosinophils Percent Auto 1.5 % (2-4); Hematocrit 40.7 % (36-46); Hemoglobin 12.7 g/dL (12.0-16.0); Lymphocytes Absolute Auto 1500 /uL (1100-4500); Mean Corpuscular HGB Conc 31.3 % (30-36); Mean Corpuscular Hemoglobin 26.2 PG (26-34); Mean Corpuscular Volume 83.5 fL (80-100); Monocytes Absolute Auto 1000 /uL (0-900); Monocytes Percent Auto 6.9 % (3-14); Neutrophils Absolute Auto 12000 /uL (1500-7000); Neutrophils Percent Auto 81.4 % (50-75); Platelet Count 213 X10^3/uL (150-400); Red Blood Cell Count 4.87 X10^6/uL (4.0-5.2); Red Cell Distribution Width 17.1 % (11.6-14.8); White Blood Cell Count 14.7 X10^3/uL (4.5-11.0)
[2020-05-06 05:34] LABS: BUN Creatinine Ratio 22.7 (6-22); Blood Urea Nitrogen 25 mg/dL (7-17); Calcium 8.8 mg/dL (8.4-10.2); Carbon Dioxide 34 mmol/L (22-32); Chloride 96 mmol/L (98-107); Estimated Glomerular Filt Rate 50.7 mL/min (>60); Glucose 134 mg/dL (80-110); HEMOLYSIS < 15 (0-50); Magnesium 2.4 mg/dL (1.6-2.3); Phosphorous 4.8 mg/dL (2.8-4.1); Potassium 4.5 mmol/L (3.4-5.1); Sodium 134 mmol/L (137-145)
[2020-05-06] MEDS: ALBUTEROL/IPRATROPIUM 3 ML AMPUL INH ×2 (05:52→16:42)
[2020-05-06] MEDS: INSULIN ASPART 100 UNIT/ML INSULN PEN SUBCUT (06:19)
--- NOTE | 2020-05-06 06:32 | PC.NURSE ---
Newscast Producer Note-Patient is drowsy, fatigued, and withdrawn, anxious during care but does follow directions. On 4-6L NC, HOB elevated, SpO2 89-95%, breath sounds scattered rhonchi/wheezes throughout, moist cough. ST 100-115, 20mg IV Diltiazem Q4h started at 0100 as ordered, administered slowly. LR @ 150ml/hr with Zosyn Q8h. 1mg IV Dilaudid given for pain, patient is not verbal, voice is hoarse, FLACC 5-7. NGT to LIS put out 150 thick bile fluid. Harrell 525ml, wound vac patent, bowel sounds hypoactive.
[2020-05-06] MEDS: LACTATED RINGERS 1,000 ML 100 ML IV (08:00)
[2020-05-06] MEDS: ENOXAPARIN 30 MG/0.3 ML SYRINGE SUBCUT (09:29)
[2020-05-06] MEDS: PANTOPRAZOLE 40 MG VIAL IV (09:29)
--- NOTE | 2020-05-06 09:33 | PM.PNPO.1 ---
Subjective Subjective Date Patient Seen: 05/06/20 Time Patient Seen: 09:33 Interval history: No acute overnight events. She was extubated yesterday to nasal cannula. Has significant amount of secretions and sputum. No bowel movement or flatus yet Exam Vital Signs (past 8 hours): - 05/06/20 02:00 05/06/20 03:00 05/06/20 04:00 Temperature Pulse Rate 108 H 103 H 106 H Respiratory Rate 12 12 14 Blood Pressure 123/62 131/79 153/72 H Pulse Oximetry 91 93 95 05/06/20 04:24 05/06/20 05:00 05/06/20 05:12 Temperature 97.0 F L Pulse Rate 108 H 104 H Respiratory Rate 12 Blood Pressure 138/69 138/69 Pulse Oximetry 94 05/06/20 05:35 05/06/20 05:52 05/06/20 06:00 Temperature Pulse Rate 97 H 101 H 99 H Respiratory Rate 16 13 13 Blood Pressure 119/76 147/67 H Pulse Oximetry 80 L 92 95 05/06/20 08:00 Temperature 97.6 F Pulse Rate 105 H Respiratory Rate 16 Blood Pressure 137/75 Pulse Oximetry 94 Fraction of Inspired Oxygen 0.5 Oxygen Delivery Method Nasal Cannula Oxygen Flow Rate 3 Narrative Exam Narrative: General morbidly obese adult female Chest labored respirations Abdomen soft appropriately tender to palpation midline wound VAC in place Objective Labs Result Diagrams: 05/06/20 04:37 05/06/20 04:37 Labs: Laboratory Results - last 24 hr 05/05/20 05/06/20 05/06/20 05:40 04:37 04:37 WBC 14.7 H RBC 4.87 Hgb 12.7 Hct 40.7 MCV 83.5 MCH 26.2 MCHC 31.3 RDW 17.1 H Plt Count 213 Neut % (Auto) 81.4 H Lymph % (Auto) 10.0 L [place] % (Auto) 6.9 Eos % (Auto) 1.5 L Baso % (Auto) 0.2 Neut # (Auto) 90289 H Lymph # (Auto) 1500 [place] # (Auto) 1000 H Eos # (Auto) 200 Baso # (Auto) 0 ABG pH 7.36 ABG pCO2 46.9 H ABG pO2 68 L ABG HCO3 27 H ABG Total CO2 28 ABG O2 Saturation 93 L ABG Base Excess 1.0 FiO2 0.40 Sodium 134 L Potassium 4.5 Chloride 96 L Carbon Dioxide 34 H BUN 25 H Creatinine 1.10 H Estimated GFR 50.7 L BUN/Creatinine Ratio 22.7 H Glucose 134 H Calcium 8.8 Phosphorus 4.8 H D Magnesium 2.4 H Assessment & Plan Post-op Postoperative Procedures: Procedures Operation Date: 05/03/20 12:30 Actual Procedures Side Surgeon p Exploratory Laparotomy GEN Joseluis Camp MD Postoperative status narrative: 59-year-old female postoperative day 3 after an exploratory laparotomy and small bowel resection for a strangulated umbilical hernia. She is making a slow but gradual recovery. # congestive heart failure-DC IV fluids Postoperative ileus-continue nasogastric tube to intermittent low wall suction okay for ice chips await return of bowel function #COPD-continue nebs and incentive spirometry #DM-Insulin sliding scale #VTE prophylaxis-SCDs and Lovenox Quality VTE Deep Vein Thrombosis/Pulmonary Embolism Present on Admission: No
--- NOTE | 2020-05-06 10:52 | PT.IIE ---
Current Diagnoses Heart failure, unspecified (05/03/20) Chronic obstructive pulmonary disease, unspecified (05/03/20) Surgery Performed Operation Date: 05/03/20 12:30 Actual Procedures p Exploratory Laparotomy GEN Cami Camp MD Surgical History (Last Reviewed 05/03/20 @ 18:42 by Jordyn Lyon DO) S/P tonsillectomy (Acute) Medical History (Last Reviewed 05/03/20 @ 18:42 by Jordyn Lyon DO) CHF (congestive heart failure) (Acute) COPD (chronic obstructive pulmonary disease) (Acute) Diabetes (Acute) HTN (hypertension) (Acute) Obstructive sleep apnea (Acute) Strangulated hernia of abdominal wall (Acute) Physical Therapy Inpatient Evaluation/Re-Eval M1 PT/OT-IP Prior Functional Status Start: 05/06/20 14:50 Freq: NEEDED Status: Active Protocol: Document 05/06/20 10:52 AB (Rec: 05/06/20 15:09 [facility] Medical Review Prior Functional Status Medical History Reviewed Yes Communication able to make needs known Mobility and Gait pt stated that she is independent with all mobilities and ambulation without AD Social History Household Members spouse Living Arrangements House Number of Floors (Floors) One Floor Number of Stairs To Enter/Railing? ramp to enter Home Environment Standard Height Toilet,Walk in Shower,Built-In Shower Seat Home Equipment Hand Held Shower,Grab Bars In Shower Additional Social History Comment daughters will be able to assist pt at home M2 PT-IP Current Condition Start: 05/06/20 14:50 Freq: NEEDED Status: Active Protocol: Document 05/06/20 10:52 AB (Rec: 05/06/20 15:09 [facility] Physical Therapy Current Condition Current Condition Evaluation Date 05/06/20 Treatment Diagnosis hernia s/p ex-lap and small bowel resection; difficulty in walking Onset Date 05/03/20 M3 PT-IP Subjective Start: 05/06/20 14:50 Freq: NEEDED Status: Active Protocol: Document 05/06/20 10:52 AB (Rec: 05/06/20 15:09 [facility] Subjective Physical Therapy Visit Type Type Initial Evaluation Visit Start Time 10:52 Visit Stop Time 11:34 Total Visit Minutes 42 Number of VETERINARY BACTERIOLOGIST Visits 0 Physical Therapy Visit Comments Patient Comments pt is agreed to do PT but required motivation to participate M4 PT-IP Mobility and Gait Start: 05/06/20 14:50 Freq: NEEDED Status: Active Protocol: Document 05/06/20 10:52 AB (Rec: 05/06/20 15:09 AB [email or web address]) PT-Bed Mobility Assessment Supine to Sit Supine to Sit Maximum Assistance,2 Person Assistance,Head of Bed Elevated Scooting Scooting to Edge of Bed Maximum Assistance PT-Transfer Assessment Sit to and From Stand Sit to and from Stand Maximum Assistance,2 Person Assistance,Use of Upper Extremities Equipment Transfer Assistive Device Gait Belt,Front Wheeled Walker Orthotic/Prosthetic Devices or Brace: No Transfers Transfer Destination Chair Transfer Technique Stand Step Pivot Transfer Ability Level of Assist Maximum Assistance,2 Person Assistance,Use of Upper Extremities Comments Mobility Comments O2 sat at 4L/min 96%. O2 sat decreased to ~ 84-86% with activity. O2 sat at end of tx session 99% with 4L/min O2. Pt also has NG tube, wound vac , O2 tubing, IV and tele device on. pt educated on abdominal precautions. completed supine to sit with HOB elevated log roll max A x 2 and max cues. HOB positioned elevated due to difficulty in breathing. pt was able to sit on EOB CGA. completed sit to stand from [place] max A x2 and max cues with 2 attempts to stand. able to complete step transfer using FWW max A x 2 and max cues. (+) bilateral knee buckling during transfer requiring max A x 2 for steadiness and support. positioned pt on chair. pt stated that she is tired. call light and table placed within reach. daughter in room during PT session. pt stated that she wants a hospital bed at home. informed pt's daughter on equipement needs and DME list provided. Gait Assessment Comments Gait Comments unable at this time PT-Balance Assessment Sitting Balance and Reactions Static Sitting Balance Ability Good Dynamic Sitting Balance Ability Fair Standing Balance and Reactions Static Standing Balance Ability Poor Dynamic Standing Balance Ability Poor Device Used FWW M5 PT-IP Objective Assessments Start: 05/06/20 14:50 Freq: NEEDED Status: Active Protocol: Document 05/06/20 10:52 AB (Rec: 05/06/20 15:09 AB [email or web address]) Orientation Orientation/Cognition Level of Alertness Alert Orientation Name,Place,Situation Safety Awareness Decreased Safety Awareness Gross Range of Motion Lower Extremity ROM Assessment Within Functional Limits Strength Lower Extremity Strength Assessment Bilaterally Impaired Hip 3+/5 Knee 3+/5 Coordination Assessment Gross Coordination Gross Coordination WNL Sensation Assessment Sensation Gross Sensation WNL Muscle Tone Muscle Tone WNL Yes M6 PT-IP Treatment Start: 05/06/20 14:50 Freq: NEEDED Status: Active Protocol: Document 05/06/20 10:52 AB (Rec: 05/06/20 15:09 AB [email or web address]) Physical Therapy Treatment Education Education Provided Precautions,Safety M7 PT-IP Assessment and Plan Start: 05/06/20 14:50 Freq: NEEDED Status: Active Protocol: Document 05/06/20 10:52 AB (Rec: 05/06/20 15:09 AB [email or web address]) PT Summary Assessment and Plan Potential Rehabilitation Potential Fair Status of Condition at Evaluation Evolving Summary Impairments Pain,ROM,Strength,Balance, Coordination,Sensation,Tone, Cognition,Bed Mobility, Transfers,Gait,Activity Tolerance Assessment Summary pt requiring max A x 2 with all mobilities and has decrease activity tolerance. (+) bilateral knee buckling during standing/transfers. d/ c plan depending on progress but at this time may require SNF rehab. pt's daughter stated that she and her sister will assist pt. will continue to assess progress. Goals Bed Mobility Goal Minimal Assistance Transfer Goal Minimal Assistance,Front Wheeled Walker Gait Goal Minimal Assistance,Front Wheel Walker Gait Distance 50 Days to Meet Goals 10 Frequency of Treatment Frequency Of Treatment Once a Day Treatment Plan Physical Therapy Treatment Plan Bed Mobility Training,Transfer Training,Gait Training, Therapeutic Exercise,Balance Retraining,Post Op Education, Discharge Planning,Hot or Cold Pack,Neuromuscular Re-ed, Coordination Retraining,Manual Therapy Other Recommendations and Next Treatment standing balance/tolerance, Focus transfers, ambulation if appropriate Recommendations To Nursing Amount of Assist Needed 2 Person Assist Discharge Recommendations PT Discharge Recommendations SNF Rehab Equipment Needed for Home Before FWW Discharge Transportation Needs at Discharge Private Vehicle,Wheelchair/ Cabulance
[2020-05-06] MEDS: FUROSEMIDE 20 MG/2 ML VIAL IV ×2 (11:20→14:58)
[2020-05-06] MEDS: buPROPion XL 150 MG TAB PO (14:58)
--- NOTE | 2020-05-06 15:02 | CM.DPC ---
DCP SNF vs Home Per Surgeon and Hospitalist, pt extubated successfully and still with wound vac and may likely need wound vac at d/c. [place] on 3L [place] and currently requiring at least 4L Oxygen [place]. Per PT, pt a 2PA currently with legs buckling and recommending SNF vs Home with Dtrs to assist and stay pending progress since pt likely will remain in hospital through the weekend. SW met bedside with pt and explained role and discussed SNF recommendation and need for having Plan A and Plan B pending pt's progress. Briefly discussed SNF and pt somewhat agreeable although preference would be home and requested SW discuss more with spouse regarding SNF preference. Pt resides in [place] so she is unsure if her preference would be [facility] or [facility] pending SNF contracted facility with [email or web address]. SW called spouse Jerod and left detailed msg requested call back to discuss SNF preference as a back up plan. SW called [facility] admissions and confirmed that they have a contract with [facility] and that it can take a couple days to get auth and can be challenging but are willing to review referral to determine if they would accept and will wait to hear if [facility] is the preference before they begin auth process. SW called [facility] admissions and discussed above and faxed referral and they will review as well before beginning auth process once pt/spouse make SNF preference. PASRR needed still if SNF at d/c, due to triage needs not completed today. Plan: SW to follow for [facility] and [facility] review and wait to confirm SNF preference before SNF begins insurance auth process. DONOVAN Lerner
--- NOTE | 2020-05-06 15:27 | PC.NURSE ---
Day Shift Note Oriented x3, drowsy at times but awakens quickly to voice and is able to participate in care and follow commands. Lung sounds coarse with rhonchi bilaterally. Oxygen sats 92-94% on 3L while awake, requiring 5L or CPAP when sleeping to maintain saturations > 92%. Using IS at bedside with reminders, reaching 250-300. Pt passing flatus and BTs hypoactive, NG tube removed per Dr. Camp and pt taking in sips of clears and tolerating well. Denies nausea. Reports abdominal pain well controlled with Dilaudid IV. Premedicated with Dilaudid prior to wound vac dressing change, changed at bedside by Dr. Camp at about 1240. Up with PT to chair 2 person assist. Harrell catheter patent and draining cloudy sediment-filled urine. Harrell catheter did require irrigation at 1300, pt reported feeling like her bladder was full and catheter noted to not be draining. Attempted to irrigate with 30 ml sterile water but catheter obstructed and irrigation unsuccessful. Eventually able to clear obstruction (large amount sediment) by aspirating with syringe - 600 ml of yellow urine immediately resulted. No further issues at this time. Call light within reach, using appropriately to make needs known. Daughter at bedside.
--- NOTE | 2020-05-06 17:34 | PM.PN.1 ---
Subjective Subjective Date Patient Seen: 05/06/20 Interval history: Patient was successfully extubated yesterday. She has been somewhat sleepy but easily arousable. NG remains in place. She appears somewhat on comfort Exam Vital Signs (past 8 hours): - 05/06/20 10:00 05/06/20 12:00 05/06/20 15:38 Temperature 97.8 F 97.7 F Pulse Rate 97 H 111 H 101 H Respiratory Rate 16 24 17 Blood Pressure 125/60 131/73 153/84 H Pulse Oximetry 95 92 96 05/06/20 17:00 Temperature Pulse Rate 110 H Respiratory Rate 14 Blood Pressure Pulse Oximetry 97 Fraction of Inspired Oxygen 0.5 Oxygen Delivery Method Nasal Cannula Oxygen Flow Rate 5 Narrative Exam Narrative: Obese female lying in bed who appears slightly on comfort both. She is drowsy but arousable Lungs: Decreased breath sounds Cardiac exam: Regular rate rhythm normal S1-S2 Abdomen: Distended, soft nontender wound VAC in place Hyperactive bowel tones are noted NG tube in Extremities: No edema Objective Labs Result Diagrams: 05/06/20 04:37 05/06/20 04:37 Labs: Laboratory Results - last 24 hr 05/06/20 05/06/20 04:37 04:37 WBC 14.7 H RBC 4.87 Hgb 12.7 Hct 40.7 MCV 83.5 MCH 26.2 MCHC 31.3 RDW 17.1 H Plt Count 213 Neut % (Auto) 81.4 H Lymph % (Auto) 10.0 L [place] % (Auto) 6.9 Eos % (Auto) 1.5 L Baso % (Auto) 0.2 Neut # (Auto) 24401 H Lymph # (Auto) 1500 [place] # (Auto) 1000 H Eos # (Auto) 200 Baso # (Auto) 0 Sodium 134 L Potassium 4.5 Chloride 96 L Carbon Dioxide 34 H BUN 25 H Creatinine 1.10 H Estimated GFR 50.7 L BUN/Creatinine Ratio 22.7 H Glucose 134 H Calcium 8.8 Phosphorus 4.8 H D Magnesium 2.4 H Assessment & Plan Assessment & Plan narrative: Assessment & Plan narrative: Strangulated hernia status post exploratory laparotomy and small-bowel resection, present on admission. Active. -Continue postoperative management per primary team General surgery. 2. Acute on chronic respiratory failure in setting of oxygen-dependent COPD, present on admission. Stable. -Does not represent acute exacerbation of COPD. Patient is on 3 L of oxygen at baseline. -Repeat chest x-ray did not demonstrate any acute cardiopulmonary process with COPD changes. X-ray today suggests a possible left lower lobe infiltrate -patient was successfully extubated, will continue oxygen and pain medications as needed as needed. -IV fluids have been discontinued -patient now on her usual patient Lasix -chest x-ray shows a left lower lobe possible infiltrate, patient is currently on Zosyn 3. Acute kidney injury, present on admission. Active. -improved -will continue to monitor renal function closely -avoid next nephrotoxic agent 4. Systolic congestive heart failure, chronic, present on admission. Stable. -Does not represent acute CHF exacerbation. --now back on usual heart failure medications -Echocardiogram demonstrated left ventricular systolic function appears to be mildly depressed in a global fashion with an ejection fraction grossly estimated at 45 to 50% without anyobvious focal wall motion abnormality. Left ventricular volumes are mildly increased with moderate concentric LVH suggestive of hypertensive heartdisease. Diastolic function could not be assessed because of her sinus tachycardia. The right ventricle appears normal in size and systolic function. Right ventricular systolic pressure cannot be estimated but CVP is likely around 3 mmHg. There is mild biatrial enlargement. The mitral valve is not well seen but grossly appears normal with probable mild to moderate mitral regurgitation with an eccentric regurgitant jet. There is mild aortic valve sclerosis without stenosis with mild aortic regurgitation. The ascending aorta is mild to moderately enlarged. - 5. Diabetes mellitus type 2, non-insulin using, chronic, present on admission. Stable. -Hemoglobin A1c 8.9% indicative of poor glycemic control. -Held Januvia. -Continue every 6 hour blood glucose checks and medium dose correctional scale insulin every 6 hours while NPO, with NG in place 6. Hypertension, chronic, present on admission. Stable. -now back on furosemide losartan and spironolactone as well as diltiazem 7. Depression, chronic, present on admission. Stable. -resume bupropion 150 mg daily. 8. Obstructive sleep apnea on CPAP, chronic, present on admission. Stable. - 9. Morbid obesity, chronic, present on admission. Stable. -BMI 40.4 -Due to morbid obesity patient is high risk of complication or bad outcome intra and postoperatively. -Plan to consult dietitian once patient is able to take in p.o. she currently has an NG tube in place at this time -consider PT OT consultation once patient has had NG tube removed. Quality VTE Deep Vein Thrombosis/Pulmonary Embolism Present on Admission: No
--- NOTE | 2020-05-06 18:55 | PC.NURSE ---
Evening shift note: Pt sitting up in bed, oriented x3, but drowsy, rouses to voice and participates in her care, able to follow commands. O2 sats 91-95% on 3L while awake, requires CPAP during sleep. Lung sound coarse with bilateral rhochi. Will use IS if reminded, able to reach 300-350. NG tube removed on dayshift, pt taking in sips of water and popcicles, tolerates well. Pt able to report pain, states that dilaudid controls well. Ervin catheter patent and draining cloudy sediment-filled urine. Dayshift nurse had to irrigate ervin as it was clogged. Will continue to monitor, no further needs at this time.
[2020-05-06] MEDS: ALBUTEROL/IPRATROPIUM MDI 1 PUFF INH ×2 (19:09)
[2020-05-06] MEDS: dilTIAZem CD 180 MG CAP PO (21:27)
[2020-05-07] VITALS (12 sets, daily range): BP systolic 158–195; BP diastolic 78–103; PULSE 84–106; RESP 14–24; TEMP 35.9–37.1; O2SAT 90–93
[2020-05-07] MEDS: PIPERACILLIN-TAZO 4.5 GM/100 ML FROZ.PIGGY IV ×3 (01:18→16:59)
[2020-05-07] MEDS: HYDROMORPHONE 1 MG INJ IV (03:29)
[2020-05-07] MEDS: PANTOPRAZOLE 40 MG VIAL IV (07:57)
[2020-05-07] MEDS: ENOXAPARIN 40 MG/0.4 ML SYRINGE SUBCUT ×2 (08:04→20:34)
[2020-05-07] MEDS: SPIRONOLACTONE 25 MG TABLET PO (08:06)
[2020-05-07] MEDS: dilTIAZem CD 180 MG CAP PO ×2 (08:07→20:33)
--- NOTE | 2020-05-07 08:12 | PC.NURSE ---
Addendum entered by Victoria Levin R.N. 05/07/20 10:57: Pt resting with no s/sx of pain at present. IV lasix given. Original Note: AM shift Start of shift, Pt reporting heaviness to L chest, and increased Work of breathing. STAT EKG ordered. PO meds given including lasix and diltizem. BP elevated 178/104
[2020-05-07] MEDS: FUROSEMIDE 40 MG TABLET PO (08:35)
[2020-05-07] MEDS: ONDANSETRON 4 MG/2 ML INJ IV ×2 (09:51→19:23)
[2020-05-07] MEDS: NITROGLYCERIN 0.4 MG SL TAB SL (09:51)
--- NOTE | 2020-05-07 10:21 | P.PN_ITS ---
Subjective Subjective Date Patient Seen: 05/07/20 Interval history: Patient is 59-year-old female with COPD, chronic hypoxic respiratory failure, diabetes, obesity who presented with small-bowel obstruction secondary to an incarcerated umbilical hernia. She had exploratory laparotomy with adhesion lysis and resection of small bowel on 05/03/2020. She was successfully extubated on 05/05/2020. Patient developed moderate to severe left lower chest heaviness at about 8:00 a.m. which has been persistent for the last couple of hours. EKG showed sinus tachycardia, nonspecific T-wave abnormality, no significant ST change. O2 sat 93% on 5 L. She is on clear liquid diet. Exam Vital Signs (past 8 hours): - 05/07/20 03:29 05/07/20 04:37 05/07/20 08:00 Temperature 97.2 F L 98.8 F Pulse Rate 98 H 96 H 105 H Respiratory Rate 22 22 24 Blood Pressure 160/78 H 178/103 H Pulse Oximetry 92 90 L 93 05/07/20 09:51 Temperature Pulse Rate Respiratory Rate Blood Pressure 178/98 H Pulse Oximetry Fraction of Inspired Oxygen 0.5 Oxygen Delivery Method CPAP Oxygen Flow Rate 5 Narrative Exam Narrative: General: Elderly female appearing somewhat uncomfortable with chest discomfort Lungs: Diminished throughout, no wheeze or crackles Heart: Regular rhythm Abdomen: Midline surgical incision with JESENIA drain, bowel sounds active Extremities: No edema Neurological: Sensorium intact, nonfocal Objective Labs Result Diagrams: 05/06/20 04:37 05/06/20 04:37 Assessment & Plan Assessment & Plan narrative: Patient is 59-year-old female with COPD, chronic hypoxic respiratory failure, diabetes, obesity who presented with small-bowel obstruction secondary to an incarcerated umbilical hernia. 1. Strangulated umbilical hernia status post exploratory laparotomy and small- bowel resection, present on admission. Active. -surgery on 05/03/2020 -Continue postoperative management per primary team General surgery. -PT/OT 2. Acute on chronic respiratory failure in setting of oxygen-dependent COPD, present on admission. Stable. -Does not represent acute exacerbation of COPD. Patient is on 3 L of oxygen at baseline. -patient was extubated on postop day 2. -continue supplemental O2 to maintain sat 80-90%, incentive spirometry q.1 hour while awake -IV fluids have been discontinued -patient now on her usual patient Lasix 3. Possible aspiration pneumonia, not present on admission, active -repeat chest x-ray 05/05 shows new left lower lobe infiltrate -patient is currently on Zosyn 4. Acute kidney injury, present on admission. Active. -resolving -admit creatinine 0.8, peaked at 2.08, last creatinine 1.1 -avoid next nephrotoxic agents 5. Systolic congestive heart failure, chronic, present on admission. Stable. -Does not represent acute CHF exacerbation. --now back on usual heart failure medications -Echocardiogram demonstrated left ventricular systolic function appears to be mildly depressed in a global fashion with an ejection fraction grossly estimated at 45 to 50% without anyobvious focal wall motion abnormality. Left ventricular volumes are mildly increased with moderate concentric LVH suggestive of hypertensive heartdisease. Diastolic function could not be assessed because of her sinus tachycardia. The right ventricle appears normal in size and systolic function. Right ventricular systolic pressure cannot be estimated but CVP is likely around 3 mmHg. There is mild biatrial enlargement. The mitral valve is not well seen but grossly appears normal with probable mild to moderate mitral regurgitation with an eccentric regurgitant jet. There is mild aortic valve sclerosis without stenosis with mild aortic regurgitation. The ascending aorta is mild to moderately enlarged. 6. Diabetes mellitus type 2, non-insulin using, chronic, present on admission. Stable. -Hemoglobin A1c 8.9% indicative of poor glycemic control. -Held Januvia. -Continue every 6 hour blood glucose checks and medium dose correctional scale insulin every 6 hours while NPO, with NG in place -postop CBG low 100 with patient on clear liquid diet 7. Hypertension, chronic, present on admission. -moderately hypertensive postop -now back on furosemide losartan and spironolactone as well as diltiazem 8. Depression, chronic, present on admission. Stable. -resume bupropion 150 mg daily. 9. Obstructive sleep apnea on CPAP, chronic, present on admission. Stable. 10. Morbid obesity, chronic, present on admission. Stable. -BMI 40.4 -Due to morbid obesity patient is high risk of complication or bad outcome intra and postoperatively. -consult dietitian 11. Postop chest pain, active -patient with nonpleuritic left side chest discomfort on 05/07/2020, EKG with NSR, nonspecific T-wave abnormality, no significant ST change -check serial troponin -nitroglycerin sublingual as needed DVT prophylaxis: On enoxaparin Quality VTE Deep Vein Thrombosis/Pulmonary Embolism Present on Admission: No
[2020-05-07] MEDS: ALBUTEROL/IPRATROPIUM MDI 1 PUFF INH ×2 (10:30→20:25)
[2020-05-07 10:44] LABS: Troponin I 0.014 ng/mL (0.01-0.034)
[2020-05-07] MEDS: FUROSEMIDE 40 MG/4 ML VIAL IV ×2 (11:02→15:51)
[2020-05-07] MEDS: LOSARTAN 50 MG TABLET 100 MG PO (11:05)
[2020-05-07] MEDS: buPROPion XL 150 MG TAB PO (11:05)
--- NOTE | 2020-05-07 11:26 | PT-IP ANOTE ---
Per nursing, pt unavailable due to cardiac issues.
--- NOTE | 2020-05-07 11:58 | PT.IPTN ---
Current Diagnoses Heart failure, unspecified (05/03/20) Chronic obstructive pulmonary disease, unspecified (05/03/20) Surgery Performed Operation Date: 05/03/20 12:30 Actual Procedures p Exploratory Laparotomy GEN Cami Camp MD Physical Therapy Treatment Note M2 PT-IP Current Condition Start: 05/06/20 14:50 Freq: NEEDED Status: Active Protocol: Document 05/06/20 10:52 AB (Rec: 05/06/20 15:09 AB [email or web address]) Physical Therapy Current Condition Current Condition Evaluation Date 05/06/20 Treatment Diagnosis hernia s/p ex-lap and small bowel resection; difficulty in walking Onset Date 05/03/20 M3 PT-IP Subjective Start: 05/06/20 14:50 Freq: NEEDED Status: Active Protocol: Document 05/07/20 11:58 AB (Rec: 05/07/20 16:47 AB [email or web address]) Subjective Physical Therapy Visit Type Type Treatment Note Visit Start Time 11:58 Visit Stop Time 12:22 Total Visit Minutes 24 Number of [employer]IN[employer] HERBALIST Visits 2 Physical Therapy Visit Comments Patient Comments pt requires motivation to participate M4 PT-IP Mobility and Gait Start: 05/06/20 14:50 Freq: NEEDED Status: Active Protocol: Document 05/07/20 11:58 AB (Rec: 05/07/20 16:47 AB [email or web address]) PT-Bed Mobility Assessment Supine to Sit Supine to Sit Maximum Assistance,1 Person Assistance,2 Person Assistance ,Head of Bed Elevated,Bedrails PT-Transfer Assessment Sit to and From Stand Sit to and from Stand Maximum Assistance,2 Person Assistance,Use of Upper Extremities Equipment Transfer Assistive Device Gait Belt,Front Wheeled Walker Orthotic/Prosthetic Devices or Brace: No Transfers Transfer Destination Chair Transfer Technique Stand Step Pivot Transfer Ability Level of Assist Moderate Assistance,2 Person Assistance,Use of Upper Extremities Comments Mobility Comments pt initially refusing to get out of bed but agreed. completed supine to sit max A x 1-2 and max cues with HOB elevated and use of bed rail. pt was able to sit on EOB CGA . completed sit to stand max A x 1-2 and max cues and was able to step transfer to chair mod A x 2 and max elayne. pt rested. O2 sat decreased to 84% with activity with 5L/min O2. pt agreed to ambulate and completed ~ 3 ft using FWW mod A x 2 and max cues. positioned pt in bed. call light and table placed within reach. Gait Assessment Gait Gait Assistance Required: Moderate Assistance,2 Person Assist Distance (Feet) 3 Able to Maintain Weight Bearing Status Yes During Gait Assistive Devices Assistive Device Gait Belt,Front Wheeled Walker Orthotic/Prosthetic Devices or Brace: No Gait Deviations General Gait Pattern Antalgic,Decreased Stride Length,Decreased Feet Clearance,Wide Based Gait Factors Limiting Gait Function Factors Limiting Gait Function Decreased Activity Tolerance, Decreased Strength,Poor Balance,Poor Safety Awareness, Respiratory Distress M5 PT-IP Objective Assessments Start: 05/06/20 14:50 Freq: NEEDED Status: Active Protocol: Document 05/06/20 10:52 AB (Rec: 05/06/20 15:09 AB [email or web address]) Orientation Orientation/Cognition Level of Alertness Alert Orientation Name,Place,Situation Safety Awareness Decreased Safety Awareness Gross Range of Motion Lower Extremity ROM Assessment Within Functional Limits Strength Lower Extremity Strength Assessment Bilaterally Impaired Hip 3+/5 Knee 3+/5 Coordination Assessment Gross Coordination Gross Coordination WNL Sensation Assessment Sensation Gross Sensation WNL Muscle Tone Muscle Tone WNL Yes M6 PT-IP Treatment Start: 05/06/20 14:50 Freq: NEEDED Status: Active Protocol: Document 05/07/20 11:58 AB (Rec: 05/07/20 16:47 AB [email or web address]) Physical Therapy Treatment Education Education Provided Precautions,Safety M7 PT-IP Assessment and Plan Start: 05/06/20 14:50 Freq: NEEDED Status: Active Protocol: Document 05/07/20 11:58 AB (Rec: 05/07/20 16:47 AB [email or web address]) PT Summary Assessment and Plan Potential Rehabilitation Potential Fair Summary Impairments Pain,ROM,Strength,Balance, Coordination,Sensation,Tone, Cognition,Bed Mobility, Transfers,Gait,Activity Tolerance Progress Towards Goals Slow Progress due to Medical Issues,Slow Progress due to Activity Tolerance Assessment Summary pt improving slowly and is steadier with standing today compared to yesterday's and is able to ambulate ~ 3 ft mod A x 2 today but O2 sat continues to decrease with activity. pt will require SNF rehab to improve strength and functional independence but if family will be able to assist pt at home, caregiver training will be conducted. Goals Bed Mobility Goal Minimal Assistance Transfer Goal Minimal Assistance,Front Wheeled Walker Gait Goal Minimal Assistance,Front Wheel Walker Gait Distance 50 Days to Meet Goals 10 Frequency of Treatment Frequency Of Treatment Once a Day Treatment Plan Physical Therapy Treatment Plan Bed Mobility Training,Transfer Training,Gait Training, Therapeutic Exercise,Balance Retraining,Post Op Education, Discharge Planning,Hot or Cold Pack,Neuromuscular Re-ed, Coordination Retraining,Manual Therapy Other Recommendations and Next Treatment standing balance/tolerance, Focus transfers, ambulation if appropriate Recommendations To Nursing Amount of Assist Needed 2 Person Assist Discharge Recommendations PT Discharge Recommendations SNF Rehab Equipment Needed for Home Before FWW Discharge Transportation Needs at Discharge Private Vehicle,Wheelchair/ Cabulance
--- NOTE | 2020-05-07 12:02 | PM.PNPO.1 ---
Subjective Subjective Date Patient Seen: 05/07/20 Interval history: Started on clear liquid diet yesterday. This morning she feels shortness of breath and some chest pain a EKG was performed and the 1st troponin marker was negative. No nausea emesis. No bowel movement, is passing flatus. Having incisional pain Exam Vital Signs (past 8 hours): - 05/07/20 04:37 05/07/20 08:00 05/07/20 09:51 Temperature 98.8 F Pulse Rate 96 H 105 H Respiratory Rate 22 24 Blood Pressure 178/103 H 178/98 H Pulse Oximetry 90 L 93 05/07/20 10:37 Temperature Pulse Rate 103 H Respiratory Rate 16 Blood Pressure Pulse Oximetry 91 Fraction of Inspired Oxygen 0.5 Oxygen Delivery Method CPAP Oxygen Flow Rate 5 Narrative Exam Narrative: General adult female morbidly obese in no acute distress Chest mildly labored respirations Abdomen midline wound VAC in place appropriately tender to palpation Objective Labs Result Diagrams: 05/06/20 04:37 05/06/20 04:37 Labs: Laboratory Results - last 24 hr 05/07/20 10:08 Troponin I 0.014 Assessment & Plan Post-op Postoperative Procedures: Procedures Operation Date: 05/03/20 12:30 Actual Procedures Side Surgeon p Exploratory Laparotomy GEN Joseluis Camp MD Postoperative status narrative: 59-year-old woman with congestive heart failure, COPD, diabetes postoperative day 4 after an exploratory laparotomy small bowel resection for a strangulated umbilical hernia containing necrotic bowel. -continue clear liquid diet -out of bed to chair continue physical therapy -Lasix given her shortness of breath and she is 30 lb up from her admission weight -SCDs and Lovenox for DVT prophylaxis -Out of bed to chair physical therapy Quality VTE Deep Vein Thrombosis/Pulmonary Embolism Present on Admission: No
[2020-05-07 12:21] LABS: Add Manual Diff / Slide Review NO; Basophils Absolute Auto 100 /uL (0-100); Basophils Percent Auto 0.5 % (0-2); Eosinophils Absolute Auto 100 /uL (0-450); Hematocrit 38.8 % (36-46); Hemoglobin 12.4 g/dL (12.0-16.0); Lymphocytes Absolute Auto 1200 /uL (1100-4500); Lymphocytes Percent Auto 10.4 % (25-40); Mean Corpuscular Hemoglobin 26.4 PG (26-34); Mean Corpuscular Volume 82.8 fL (80-100); Monocytes Absolute Auto 800 /uL (0-900); Monocytes Percent Auto 6.4 % (3-14); Neutrophils Absolute Auto 9600 /uL (1500-7000); Neutrophils Percent Auto 81.7 % (50-75); Platelet Count 228 X10^3/uL (150-400); Red Blood Cell Count 4.69 X10^6/uL (4.0-5.2); White Blood Cell Count 11.8 X10^3/uL (4.5-11.0)
[2020-05-07] MEDS: INSULIN ASPART 100 UNIT/ML INSULN PEN SUBCUT ×2 (13:00→16:55)
--- NOTE | 2020-05-07 13:04 | CM.DPC ---
DCP: Continued: Case received, EMR reviewed and met with pt and her daughter Adryan Hodges: [phone]. Pt identifies her expectation of a d/c to home plan. Her daughter supports her in this but is concerned re how this will be managed and who who will pay for all that will be needed at home. Discussed current situation with both: pt is requiring 2 person mobility assist. She has had major surgery 05/03 for a strangulated umbilical hernia: exploratory laparotomy/MICHAEL/small bowel resection. She was on ventilator support post surgery until extubated on 05/05. Morbid obesity does impact her abdominal wound: is currently on a wound vac. She uses home o2 at 3L and same at night in addition to her CPAP. Her mobility is limited by her need for oxygen but she says she does all her own ADLs and uses no assistive devices. She says she manages the cooking and cleaning as well as her own daily living tasks She is currently far from baseline but due to her ongoing medical issues has not worked much with PT thus far in the hospital. An OT order was requested by PT/obtained. Discussed case at this point with Dr. Camp so as to know better how to assist pt with her d/c needs. Wound vac: he is planning to keep pt here on the vac but with likely change to wet/dry when ready to leave hospital. Pt and her daughters (other daughter,not currently here: Mina: Neri Hodges) all are very adamant about not wanting snf environment due to COVID concerns. They had hoped that [facility] would pay for someone to come in to help, or maybe pt would qualify for temporary social security disability or maybe pt could have her care paid for by Mina who is a medicaid/HEN[employer] caregiver with the state: Discussed these and limitations of same (including fact that pt does not qualify at this time for medicaid/HENRRY). P: at this time: best scenario in terms of what pt and family desire is home with one person assistance of family and Home Health services (RN for wound care teach and management, OT/PT/DICTATING MACHINE TYPIST) but would need to be an agency that accepts [employer] insurance. Pt and family agree at this time with a Plan B of [facility] rehab: is in [place] and family would be close by. Dr. Camp agrees with same (if pt not willing to consider snf) Have a call now to [facility] and have faxed face sheet. She will look into the insurance so see is this is an option.
--- NOTE | 2020-05-07 14:58 | OT.IPNOTE ---
Attempted to see pt for OT eval and pt states just getting to sleep and insisting on not wanting to do OT eval today, but agreed to try to shower in the AM tomorrow.
--- NOTE | 2020-05-07 15:52 | DIET.PN ---
Dietary Progress Note Assessment: 59y F admitted for incarcerated umbilical hernia requiring surgery and post-op ventilation and wound vac referred to nutrition for morbid obesity/CHF/COPD/DM2. Pt currently tolerating diabetic clear liquid diet. Because of major surgery and wound vac, adding ONS Andre BID to support high protein needs for healing. Pt lives c spouse and is independent in ADLs, pt does shopping and cooking. Pt reports being a shopaholic so tends to buy more food than is needed and it spoils. Pt shops at [employer] for household of 2. Pt reports her is picky eater and also has DM2. Usual Day: wakes 6-7am, drinks cup coffee and has a cigarette then sits at computer and plays computer games B: toast c butter and pb L: leftovers D: spaghetti, pre-formed frozen hamburgers c kazakh fries Pt likes asparagus, apples, strawberries, onions. She reports sometimes cutting up zucchini, guzman peppers, and onions for spaghetti. Pt's physical activity is limited by home O2 use and morbid obesity. Pt's dietary choices and physical inactivity are contributing to her chronic conditions of morbid obesity/CHF/COPD/DM2, pt willing to make small changes but not willing to make major changes to eating/activity at this time. HT: 165.1cm WT: 117.8kg BMI: 43.2 Labs: Cr 1.1 H, eGFR 50.7 L, A1c 8.9, phos 4.8 H Ihsan: 12 high risk for skin breakdown Nutrition Diagnosis: Morbid obesity r/t undesirable food choices and physical inactivity aeb BMI 43.2, pt on 2L O2 @ baseline for COPD limiting physical activity, pt food recall includes low intake F/V/soluble fiber and high intake of ultraprocessed foods and simple carbohydrates. Interventions: Discussed c pt dietary recommendations for all her chronic conditions follow a single pattern of minimally processed consistent carbohydrate diet focusing intake on healthy fats, soluble fiber and F/V. Educated pt on role of lungs in processing diet, CO2 residues are cleared via exhalation. Encouraged pt to follow consistent carb diet to reduce work on lungs for COPD, protein and healthy fats are good choices. Educated pt on role of soluble fiber and F/V in weight management, eating 5-8 servings F/V per day and beans/nuts daily. Educated pt on importance of LS diet for CHF that highly processed foods use salt as a preservative. Collaborated c pt on ways to modify diet to support health and independence: pt will not purchase fresh F/V at [employer] because it goes to waste and will instead purchase smaller quantities at different store and do chopping/prep before storing in fridge to increase chance she will use them in cooking. Encouraged pt to cook for her own health rather than preferences of spouse. Diet Order: diabetic clears EER: 1,750kcal (15kcal/kg to support wt loss), 117g PRO (1g/kg per wound vac)
[2020-05-07 17:21] LABS: Troponin I 0.016 ng/mL (0.01-0.034)
[2020-05-07] MEDS: guaiFENesin ER 600 MG TAB 1200 MG PO (20:34)
--- NOTE | 2020-05-07 22:30 | PC.NURSE ---
End of Shift report: Pt awake and oriented, denies pain but describes some nausea without vomiting. Zofran given to good effect. Diet changed to carb controlled however, pt declined any food for the evening meal, taking sips of sprite. Breath sound diminished in bases bilaterally, pt refused to use IS this shift. Placed on cpap for sleep. Wound vac intact at 125mmhg draining scant serous drainage.
[2020-05-08] VITALS (10 sets, daily range): BP systolic 123–171; BP diastolic 69–89; PULSE 78–94; RESP 14–22; TEMP 36.1–37.1; O2SAT 88–94
[2020-05-08] MEDS: PIPERACILLIN-TAZO 4.5 GM/100 ML FROZ.PIGGY IV ×2 (00:39→09:34)
[2020-05-08 05:50] LABS: Add Manual Diff / Slide Review NO; Basophils Absolute Auto 100 /uL (0-100); Basophils Percent Auto 0.5 % (0-2); Eosinophils Absolute Auto 400 /uL (0-450); Eosinophils Percent Auto 3.9 % (2-4); Hematocrit 39.5 % (36-46); Hemoglobin 12.4 g/dL (12.0-16.0); Lymphocytes Absolute Auto 1500 /uL (1100-4500); Lymphocytes Percent Auto 14.5 % (25-40); Mean Corpuscular HGB Conc 31.5 % (30-36); Mean Corpuscular Hemoglobin 26.1 PG (26-34); Monocytes Absolute Auto 1200 /uL (0-900); Monocytes Percent Auto 11.9 % (3-14); Neutrophils Absolute Auto 7000 /uL (1500-7000); Neutrophils Percent Auto 69.2 % (50-75); Platelet Count 231 X10^3/uL (150-400); Red Blood Cell Count 4.75 X10^6/uL (4.0-5.2); Red Cell Distribution Width 16.6 % (11.6-14.8); White Blood Cell Count 10.1 X10^3/uL (4.5-11.0)
[2020-05-08 05:58] LABS: BUN Creatinine Ratio 28.9 (6-22); Blood Urea Nitrogen 24 mg/dL (7-17); Calcium 8.7 mg/dL (8.4-10.2); Chloride 86 mmol/L (98-107); Estimated Glomerular Filt Rate > 60.0 mL/min (>60); Glucose 135 mg/dL (80-110); HEMOLYSIS < 15 (0-50); Phosphorous 2.8 mg/dL (2.8-4.1); Potassium 3.8 mmol/L (3.4-5.1); Sodium 133 mmol/L (137-145)
[2020-05-08 06:28] LABS: Carbon Dioxide 39 mmol/L (22-32)
--- NOTE | 2020-05-08 08:26 | CM.DPC ---
Addendum entered by Bertha Meier LPN 05/08/20 16:07: PT and OT are today stating that pt is able to mobilize with essentially stand by assist but needs encouragement to do so. She is limited by her ongoing respiratory issues. PT and OT are recommending a home with HH plan. Her has been at bedside today and was there during therapy sessions. He confirms he often helps her at home and will continue to do so. Their daughters also plan to give prn assist. RE Home Health: Dianna/Patricia did call back later today and stated that she just found out that as of 2 weeks ago [facility] does not have the [facility] contact any longer. With assist of NIC Martinez it was determined that [facility] does have the contract and Salvador reported he would start on the Auth process today. Referral packet was faxed. RE [facility]/ Inpt rehab. Received a call from Siobhan this afternoon with update: They know are full to capacity with no ability to even consider an admission until early part of next week. She confirmed she had not started the auth process. DCP team will be following closely. Pt has been updated now on the above information. She at this time is focused on the itching on her arms and with tiffanie RN attempting to make her more comfortable. Original Note: DCP: continued: Jeff Davis back late yesterday afternoon from Siobhan//[facility]/INPT rehab unit. She confirmed that they can accept [facility] patients and requests referral info be sent: Elgin Martinez will fax this to her this morning. [facility] also confirmed they can accept [facility] patients. There is likely a lag time in seeing the patient as they accept the referral info at d/c from but then need to work with pt's PCP to obtain authorization for the Services. P: discuss in Team Rounds today and update pt and her daughter. OT will see pt today for the first time.
[2020-05-08] MEDS: FUROSEMIDE 40 MG TABLET PO (09:35)
[2020-05-08] MEDS: dilTIAZem CD 180 MG CAP PO ×2 (09:35→21:14)
[2020-05-08] MEDS: LOSARTAN 50 MG TABLET 100 MG PO (09:35)
[2020-05-08] MEDS: SPIRONOLACTONE 25 MG TABLET PO (09:35)
[2020-05-08] MEDS: buPROPion XL 150 MG TAB PO (09:35)
[2020-05-08] MEDS: INSULIN ASPART 100 UNIT/ML INSULN PEN SUBCUT ×3 (09:52→17:13)
[2020-05-08] MEDS: ENOXAPARIN 40 MG/0.4 ML SYRINGE SUBCUT ×2 (10:05→21:14)
[2020-05-08] MEDS: PANTOPRAZOLE 40 MG VIAL IV (10:06)
[2020-05-08] MEDS: ALBUTEROL/IPRATROPIUM MDI 1 PUFF INH ×2 (11:28→20:40)
--- NOTE | 2020-05-08 12:31 | PT.IPTN ---
Current Diagnoses Heart failure, unspecified (05/03/20) Chronic obstructive pulmonary disease, unspecified (05/03/20) Surgery Performed Operation Date: 05/03/20 12:30 Actual Procedures p Exploratory Laparotomy GEN Cami Camp MD Physical Therapy Treatment Note M2 PT-IP Current Condition Start: 05/06/20 14:50 Freq: NEEDED Status: Active Protocol: Document 05/06/20 10:52 AB (Rec: 05/06/20 15:09 AB [id number]) Physical Therapy Current Condition Current Condition Evaluation Date 05/06/20 Treatment Diagnosis hernia s/p ex-lap and small bowel resection; difficulty in walking Onset Date 05/03/20 M3 PT-IP Subjective Start: 05/06/20 14:50 Freq: NEEDED Status: Active Protocol: Document 05/08/20 10:38 LJ (Rec: 05/08/20 12:31 LJ [id number]) Subjective Physical Therapy Visit Type Type Treatment Note Visit Start Time 10:38 Visit Stop Time 10:55 Total Visit Minutes 17 Notes pt in bed. Spuose in room Number of BUSINESS SYSTEMS ANALYST Visits 1 Physical Therapy Visit Comments Patient Comments pt requires motivation to participate M4 PT-IP Mobility and Gait Start: 05/06/20 14:50 Freq: NEEDED Status: Active Protocol: Document 05/08/20 10:38 SUZANNE (Rec: 05/08/20 12:31 LJ [id number]) PT-Bed Mobility Assessment Supine to Sit Supine to Sit Standby Assistance,Head of Bed Elevated,Bedrails Sit to Supine Sit to Supine Standby Assistance,Head of Bed Elevated,Bedrails Scooting Scooting to Edge of Bed Standby Assistance Scooting Up and Down in Bed Standby Assistance PT-Transfer Assessment Sit to and From Stand Sit to and from Stand Standby Assistance,1 Person Assistance,Use of Upper Extremities Equipment Transfer Assistive Device Gait Belt,Front Wheeled Walker Orthotic/Prosthetic Devices or Brace: No Transfers Transfer Destination Bed Transfer Ability Level of Assist Standby Assistance,1 Person Assistance,Use of Upper Extremities Comments Mobility Comments Pt lacking motivation to get out of bed. States she does not have pain in incision site but complaining of itching legs. Nurse notified. Pt pulled herself to sitting lposition using UEs and bed rails. sat on side of bed without feet touchoing the floor and not holding onto the bed. Pt was able to perform bilateral knee extensions and maintain sitting balance. Pt was asked to stand and she stood SBA rather quickly. BUSINESS SYSTEMS ANALYST asked pt to attempt walking but pt refused. BUSINESS SYSTEMS ANALYST asked pt to weight shift laterally but pt sat back kown onto bed stating she was too tired. RN then requested pt to stand again so that the bed sheets could be straightened. Pt stood again SBA while sheets were arranged. Pt then sat down and lifted her legs onto the bed and positioned herself in the middle of the bed without assistance. RN rubbed lotion on pts legs. Pt left in room with all needs withn reach and husbnd in room. Gait Assessment Comments Gait Comments refused this session M5 PT-IP Objective Assessments Start: 05/06/20 14:50 Freq: NEEDED Status: Active Protocol: Document 05/06/20 10:52 AB (Rec: 05/06/20 15:09 AB [id number]) Orientation Orientation/Cognition Level of Alertness Alert Orientation Name,Place,Situation Safety Awareness Decreased Safety Awareness Gross Range of Motion Lower Extremity ROM Assessment Within Functional Limits Strength Lower Extremity Strength Assessment Bilaterally Impaired Hip 3+/5 Knee 3+/5 Coordination Assessment Gross Coordination Gross Coordination WNL Sensation Assessment Sensation Gross Sensation WNL Muscle Tone Muscle Tone WNL Yes M6 PT-IP Treatment Start: 05/06/20 14:50 Freq: NEEDED Status: Active Protocol: Document 05/08/20 10:38 SUZANNE (Rec: 05/08/20 12:31 [id number]) Physical Therapy Treatment Exercises Exercises Ankle Pumps,Gluteal Sets, Seated Knee Flexion/Extension M7 PT-IP Assessment and Plan Start: 05/06/20 14:50 Freq: NEEDED Status: Active Protocol: Document 05/08/20 10:38 SUZANNE (Rec: 05/08/20 12:31 [id number]) PT Summary Assessment and Plan Potential Rehabilitation Potential Fair Summary Impairments Pain,ROM,Strength,Balance, Coordination,Sensation,Tone, Cognition,Bed Mobility, Transfers,Gait,Activity Tolerance Progress Towards Goals Slow Progress due to Medical Issues,Slow Progress due to Activity Tolerance Assessment Summary pt has improved and is more independant with bed mobility and transfers. She refused to ambulate stating she was too tired but CM came into room and emphasized the need for her to walk if she wants to go home. Pt tolerated treatment session with O2 sat remaining in the upper 90s. Pt appears able to ambulate but lcks motivation to do so. Next treatment session should emphasize ambulation in room. Goals Bed Mobility Goal Minimal Assistance Transfer Goal Minimal Assistance,Front Wheeled Walker Gait Goal Minimal Assistance,Front Wheel Walker Gait Distance 50 Days to Meet Goals 10 Frequency of Treatment Frequency Of Treatment Once a Day Treatment Plan Physical Therapy Treatment Plan Bed Mobility Training,Transfer Training,Gait Training, Therapeutic Exercise,Balance Retraining,Post Op Education, Discharge Planning,Hot or Cold Pack,Neuromuscular Re-ed, Coordination Retraining,Manual Therapy Other Recommendations and Next Treatment standing balance/tolerance, Focus transfers, ambulation Recommendations To Nursing Amount of Assist Needed 2 Person Assist Discharge Recommendations PT Discharge Recommendations Home with Assistance,Home with 24/ Assist,Home Health Equipment Needed for Home Before FWW Discharge Transportation Needs at Discharge Private Vehicle,Wheelchair/ Cabulance
[2020-05-08] MEDS: metroNIDAZOLE 500 MG/100 ML PIGGYBACK 100 MG IV ×2 (13:39→19:32)
--- NOTE | 2020-05-08 14:22 | PC.NURSE ---
Addendum entered by Victoria Levin R.N. 05/08/20 15:46: Pt has eaten today, 25% of breakfast, and working on a late lunch. Eating well without nausea. Original Note: Pt needs constant encouragement to move from bed. Refused shower with OT. Sitting at the edge of bed, able to march and stand up a few times. Pt does remarkably well when up, Wound vac constant @ 125 mmHG, scant serosang. drainage. Dressing compressed and intact. Rash to BLE, flat, macular erythema and warm to touch. Dr Schmidt at bedside and aware, orders obtained. Dr Amaya into see Pt and planning a wound vac change tomorrow AM. Coordinator made aware and supplies will be in room. Pt c/o increased itching to BLE , erythema looks significantly improved. Flat. Less angry red. NO c/o pain at present. General diet.No c/o nausea at present.
--- NOTE | 2020-05-08 14:22 | PM.PN.1 ---
Subjective Subjective Date Patient Seen: 05/08/20 Time Patient Seen: 14:22 Interval history: No acute events overnight. Pt passing gas but no stool. Has done minimal ambulation in the room. Tolerating some PO, but not much. Exam Vital Signs (past 8 hours): - 05/08/20 09:00 05/08/20 11:30 05/08/20 13:00 Temperature 97.2 F L 97.4 F L Pulse Rate 94 H 88 Respiratory Rate 18 18 Blood Pressure 171/89 H 157/86 H Pulse Oximetry 88 L 94 92 Fraction of Inspired Oxygen 50 Oxygen Delivery Method Nasal Cannula Oxygen Flow Rate 5 Narrative Exam Narrative: GENERAL: Alert, comfortable, morbidly obese. Appears stated age. Answers questions promptly and appropriately. Vital signs noted. HENT: Normocephalic, atraumatic. Hearing intact. EYES: Conjunctiva pink, sclera white, no periorbital swelling. CARDIOVASCULAR: Regular rate. No pedal edema. RESPIRATORY: Non-tachypneic, breathing comfortably on room air. GASTROINTESTINAL: Abdomen soft, obese, wound VAC in place and clean, intact and well functioning SKIN: Warm, dry, soft, appropriate color for ethnicity. No other lesions, rashes, or wounds. NEURO: Alert and Oriented X 3. No gross sensory deficits, or cognitive issues. PSYCH: Appropriate affect and mood. Objective Labs Result Diagrams: 05/08/20 04:40 05/08/20 04:40 Labs: Laboratory Results - last 24 hr 05/07/20 05/08/20 05/08/20 16:50 04:40 04:40 WBC 10.1 RBC 4.75 Hgb 12.4 Hct 39.5 MCV 83.0 MCH 26.1 MCHC 31.5 RDW 16.6 H Plt Count 231 Neut % (Auto) 69.2 Lymph % (Auto) 14.5 L Elbert % (Auto) 11.9 Eos % (Auto) 3.9 Baso % (Auto) 0.5 Neut # (Auto) 7000 Lymph # (Auto) 1500 Elbert # (Auto) 1200 H Eos # (Auto) 400 Baso # (Auto) 100 Sodium 133 L Potassium 3.8 Chloride 86 L Carbon Dioxide 39 H BUN 24 H Creatinine 0.83 Estimated GFR > 60.0 BUN/Creatinine Ratio 28.9 H Glucose 135 H Calcium 8.7 Phosphorus 2.8 D Magnesium 2.0 Troponin I 0.016 Assessment & Plan Assessment & Plan narrative: 59 yo woman with COPD, chronic hypoxic respiratory failure, diabetes, severe morbid obesity POD5 s/p laparotomy and SBR for strangulated umbilical hernia. She is passing gas and tolerating PO. Per nursing staff her last wound vac change was 05/06. Will plan on vac change tomorrow AM. Needs to work with PT/OT, ambulate as much as tolerated Wean off O2 as tolerated home meds as appropriate Pain meds PRN Zosyn for pneumonia DVT ppx GI ppx dispo pending appropriate return to bowel function, off IV abx, and able to tolerate a diet COVID-19 COVID-19 status: Negative Result date/Date tested (Pos, Neg/Pending): 05/03/20 Time Spent With Patient Time with patient: 15-24 minutes Quality VTE Deep Vein Thrombosis/Pulmonary Embolism Present on Admission: No
--- NOTE | 2020-05-08 14:44 | OT.IP.EVAL ---
Current Diagnoses Heart failure, unspecified (05/03/20) Chronic obstructive pulmonary disease, unspecified (05/03/20) Surgery Performed Operation Date: 05/03/20 12:30 Actual Procedures p Exploratory Laparotomy GEN Cami Camp MD Past Medical History (Last Reviewed 05/03/20 @ 18:42 by Jordyn Lyon DO) CHF (congestive heart failure) (Acute) COPD (chronic obstructive pulmonary disease) (Acute) Diabetes (Acute) HTN (hypertension) (Acute) Obstructive sleep apnea (Acute) Strangulated hernia of abdominal wall (Acute) Surgical History (Last Reviewed 05/03/20 @ 18:42 by Jordyn Lyon DO) S/P tonsillectomy (Acute) Occupational Therapy Inpatient Evaluation/Re-Eval M1 PT/OT-IP Prior Functional Status Start: 05/08/20 14:49 Freq: NEEDED Status: Active Protocol: Document 05/08/20 14:49 [facility] (Rec: 05/08/20 15:07 [facility] [id number]) Medical Review Prior Functional Status Medical History Reviewed Yes Communication able to make needs known Mobility and Gait pt stated that she is independent with all mobilities and ambulation without AD Activities of Daily Living and IADL's pt states able to do every thing for herself prior to this admission of ADL and IADl needs. Social History Household Members spouse Living Arrangements House Number of Floors (Floors) One Floor Number of Stairs To Enter/Railing? ramp to enter Home Environment Standard Height Toilet,Walk in Shower,Built-In Shower Seat Home Equipment Hand Held Shower,Grab Bars In Shower Additional Social History Comment daughters will be able to assist pt at home M2 OT-IP Current Condition Start: 05/08/20 14:49 Freq: Status: Active Protocol: Document 05/08/20 14:49 [facility] (Rec: 05/08/20 15:07 [facility] [id number]) Occupational Therapy Current Condition Current Condition Evaluation Date 05/08/20 Treatment Diagnosis Hernia s/p ex-lap resection, small bowel resection Diagnosis Onset Date 05/03/20 M3 OT- IP Subjective and Pain Start: 05/08/20 14:49 Freq: Status: Active Protocol: Document 05/08/20 14:49 [facility] (Rec: 05/08/20 15:07 [facility] [email or web address]) OT- Subjective Occupational Therapy Visit Type Type Initial Evaluation Visit Start Time 14:26 Visit Stop Time 14:44 Total Visit Minutes 18 Occupational Therapy Visit Comments Patient Comments Pt agreed to get up. Pt's present for OT eval. Patient/Caregiver Goals To go home. OT Pain Assessment Pain When Pain Assessed At Rest Pain Present Pain Present Pain Reported M4 OT- IP ADL's Start: 05/08/20 14:49 Freq: Status: Active Protocol: Document 05/08/20 14:49 [facility] (Rec: 05/08/20 15:07 [facility] [email or web address]) OT [id number] General Evaluation Self-Feeding Ability Independent OT ADL-Grooming General Evaluation Areas Needing Assistance Retrieving/Set-up of Grooming Items OT ADL-Dressing General Eval Lower Body Dressing Ability Maximum Assistance Comments OT Dressing Comments Pt needing assist for socks as too distracted to do as her legs are red and itchy, nursing aware. OT ADL-Toileting General Evaluation Toileting Ability Total Assistance Areas Needing Assistance Empty Catheter or Colostomy Comments OT Toileting Comments Harrell in OT ADL-Bathing Comments OT Bathing Comments Pt refused. M6 OT- IP Functional Cognition Start: 05/08/20 14:49 Freq: Status: Active Protocol: Document 05/08/20 14:49 [facility] (Rec: 05/08/20 15:07 [facility] [email or web address]) Cognitive Factors Limiting Selfcare Function Cognitive Ability Level of Alertness Alert Patient Orientation Name,Place,Situation Attention Span Ability Capable of Focused Attention, Capable of Sustained Attention Ability to Follow Commands Able to Follow One Step Commands Cognitive Comments Cognitive Assessment Comments Pt able to follow directions but distracted by itchiness in her legs. Pt having a hard time to initiate and agreed to do things for herself and her who is present ends up assist her with her needs. M7 OT- IP Mobility and Balance Start: 05/08/20 14:49 Freq: Status: Active Protocol: Document 05/08/20 14:49 [facility] (Rec: 05/08/20 15:07 [email or web address]) OT- Bed Mobility Assessment Rolling Type of Rolling Roll to Right Supine to Sit Supine to Sit Assist Moderate Assistance,1 Person Assistance OT-Transfer Assessment Sit to and From Stand Sit to and from Stand Standby Assistance,1 Person Assistance Transfers Transfer Ability Contact Guard Assistance,1 Person Assistance Technique Transfer Destination Bed Comments Mobility Comments Pt in side lying and wanting her to assist to sit up. MODA to help sit upright from her . CGA with FWW to step to the head of the bed and then able to get herself back to the bed. O2 levels from 87-91% during O2 session. OT- Gait Assessment Comments Gait Ability Comments Pt not wanting to walk at this time. OT- Balance Assessment Sitting Balance and Reactions Static Sitting Balance Ability Normal Standing Balance and Reactions Static Standing Balance Ability Good M8 OT- IP Objective Assessments Start: 05/08/20 14:49 Freq: Status: Active Protocol: Document 05/08/20 14:49 [facility] (Rec: 05/08/20 15:07 [facility] [id number]) OT Strength Comments Strength Comments At least 3+/5. M9 OT- IP Assessment and Plan Start: 05/08/20 14:49 Freq: Status: Active Protocol: Document 05/08/20 14:49 [facility] (Rec: 05/08/20 15:07 [facility] [email or web address]) OT Summary Assessment and Plan Potential Rehabilitation Potential Fair Analytic Complexity at Evaluation Low Summary OT Impairments Functional Mobility,Grooming, Dressing,Toileting,Bathing, Toilet Transfers,Shower Transfers,Activity Tolerance Progress Towards Goals Slow Progress due to Medical Issues,Slow Progress due to Activity Tolerance Assessment Summary Pt low complexity and main barriers are pain, poor initiation for pt to participate in activities, and decreased activity tolerance. Pt has a supportive who is willing to assist pt for all needs at home. Pt agreed to take a shower today as prior has refused to do OT. Pt once again not wanting to shower. Pt when medically stable would benefit from home health. To try to do showering with OT tomorrow to best determine her equipment needs for home. Goals Grooming Goal Independent Dressing Goal Independent Toileting Goal Independent Bathing Goal Independent Toilet Transfer Goal Independent Shower Transfer Goal Independent Patient/Caregiver Education Goal Demonstrate Energy Conservation and Pacing, Caregiver Independent Assisting Patient Days to Meet Goals 5 Frequency of Treatment Frequency Of Treatment Once a Day Treatment Plan OT Treatment Plan ADL Training,Functional Mobility,Patient/Family Education,Discharge Planning Other Treatment Recommendations and Next shower Treatment Focus Discharge Recommendations OT Discharge Recommendations Home with Assistance,Home Health Transportation Needs at Discharge Private Vehicle
[2020-05-08] MEDS: levoFLOXacin 750 MG/150 ML PIGGYBACK 100 MG IV (14:46)
--- NOTE | 2020-05-08 14:54 | P.PN_ITS ---
Subjective Subjective Date Patient Seen: 05/08/20 Interval history: Patient is 59-year-old female with COPD, chronic hypoxic respiratory failure, diabetes, obesity who presented with small-bowel obstruction secondary to an incarcerated umbilical hernia. She had exploratory laparotomy with adhesion lysis and resection of small bowel on 05/03/2020. She was successfully extubated on 05/05/2020. Patient is on clear liquid diet and mobilized from bed to chair yesterday. She had chest discomfort yesterday which has resolved. Her troponins were normal and EKG without acute changes. She was probably fluid overloaded as chest heaviness improved with IV Lasix. Currently requiring 5 L O2 which is close to her baseline home O2 requirement of 3 L. Patient had indicated her sats at home can fall into the 70s with activity. Patient has developed an erythematous pruritic rash on her lower extremities Exam Vital Signs (past 8 hours): - 05/08/20 09:00 05/08/20 11:30 05/08/20 13:00 Temperature 97.2 F L 97.4 F L Pulse Rate 94 H 88 Respiratory Rate 18 18 Blood Pressure 171/89 H 157/86 H Pulse Oximetry 88 L 94 92 Fraction of Inspired Oxygen 50 Oxygen Delivery Method Nasal Cannula Oxygen Flow Rate 5 Narrative Exam Narrative: General: Alert female without labored breathing Lungs: Bilateral wheezing Heart: Regular rhythm Abdomen: Midline surgical incision with JESENIA drain, bowel sounds active Extremities: No edema, there is macular erythematous rash on the upper legs Neurological: Sensorium intact, nonfocal Objective Labs Result Diagrams: 05/08/20 04:40 05/08/20 04:40 Labs: Laboratory Results - last 24 hr 05/07/20 05/08/20 05/08/20 16:50 04:40 04:40 WBC 10.1 RBC 4.75 Hgb 12.4 Hct 39.5 MCV 83.0 MCH 26.1 MCHC 31.5 RDW 16.6 H Plt Count 231 Neut % (Auto) 69.2 Lymph % (Auto) 14.5 L [place] % (Auto) 11.9 Eos % (Auto) 3.9 Baso % (Auto) 0.5 Neut # (Auto) 7000 Lymph # (Auto) 1500 [place] # (Auto) 1200 H Eos # (Auto) 400 Baso # (Auto) 100 Sodium 133 L Potassium 3.8 Chloride 86 L Carbon Dioxide 39 H BUN 24 H Creatinine 0.83 Estimated GFR > 60.0 BUN/Creatinine Ratio 28.9 H Glucose 135 H Calcium 8.7 Phosphorus 2.8 D Magnesium 2.0 Troponin I 0.016 Assessment & Plan Assessment & Plan narrative: Patient is 59-year-old female with COPD, chronic hypoxic respiratory failure, diabetes, obesity who presented with small-bowel obstruction secondary to an incarcerated umbilical hernia. 1. Strangulated umbilical hernia status post exploratory laparotomy and small- bowel resection, present on admission. Active. -surgery on 05/03/2020 -Continue postoperative management per primary team General surgery. -on postop antibiotic to cover GI as well as pneumonia -PT/OT 2. Acute on chronic respiratory failure in setting of oxygen-dependent COPD, present on admission. Stable. -Does not represent acute exacerbation of COPD. Patient is on 3 L of oxygen at baseline. -patient was extubated on postop day 2. -continue supplemental O2 to maintain sat 80-90%, incentive spirometry q.1 hour while awake, MDI -patient is on her usual patient Lasix 3. Possible aspiration pneumonia, not present on admission, active -repeat chest x-ray 05/05 showed new left lower lobe infiltrate -patient is currently on Zosyn but developed rash on lower extremities -change antibiotic to Levaquin and Flagyl due to possible lower GI reaction to Zosyn 4. Acute kidney injury, present on admission. Active. -resolving -admit creatinine 0.8, peaked at 2.08, now back to baseline -avoid nephrotoxic agents 5. Systolic congestive heart failure, chronic, present on admission. Stable. -Does not represent acute CHF exacerbation. --now back on usual heart failure medications -Echocardiogram demonstrated left ventricular systolic function appears to be mildly depressed in a global fashion with an ejection fraction grossly estimated at 45 to 50% without anyobvious focal wall motion abnormality. Left ventricular volumes are mildly increased with moderate concentric LVH suggestive of hypertensive heartdisease. Diastolic function could not be assessed because of her sinus tachycardia. The right ventricle appears normal in size and systolic function. Right ventricular systolic pressure cannot be estimated but CVP is likely around 3 mmHg. There is mild biatrial enlargement. The mitral valve is not well seen but grossly appears normal with probable mild to moderate mitral regurgitation with an eccentric regurgitant jet. There is mild aortic valve sclerosis without stenosis with mild aortic regurgitation. The ascending aorta is mild to moderately enlarged. 6. Diabetes mellitus type 2, non-insulin using, chronic, present on admission. Stable. -Hemoglobin A1c 8.9% indicative of poor glycemic control. -Held Januvia. -Continue every 6 hour blood glucose checks and medium dose correctional scale insulin 7. Hypertension, chronic, present on admission. -moderately hypertensive postop -continue furosemide losartan and spironolactone as well as diltiazem 8. Depression, chronic, present on admission. Stable. -resume bupropion 150 mg daily. 9. Obstructive sleep apnea on CPAP, chronic, present on admission. Stable. 10. Morbid obesity, chronic, present on admission. Stable. -BMI 40.4 -Due to morbid obesity patient is high risk of complication or bad outcome intra and postoperatively. -consult dietitian 11. Postop chest pain, resolved -patient with nonpleuritic left side chest discomfort on 05/07/2020, EKG with NSR, nonspecific T-wave abnormality, no significant ST change -negative serial troponin 12. Possible antibiotic allergic reaction -Zosyn discontinued 05/08 -Benadryl as needed DVT prophylaxis: On enoxaparin Patient is quite weak and will need acute inpatient rehab to have best chance of returning to prior functioning. Quality VTE Deep Vein Thrombosis/Pulmonary Embolism Present on Admission: No
[2020-05-08] MEDS: diphenhydrAMINE 25 MG TABLET PO (16:30)
[2020-05-08] MEDS: HYDROMORPHONE 1 MG INJ IV (18:36)
[2020-05-08] MEDS: guaiFENesin ER 600 MG TAB 1200 MG PO (21:14)
[2020-05-08] MEDS: hydrOXYzine pamoate 25 MG CAPSULE PO (21:14)
[2020-05-08] MEDS: CALCIUM CARBONATE 500 MG TAB PO (22:56)
[2020-05-09] VITALS (10 sets, daily range): BP systolic 122–134; BP diastolic 63–81; PULSE 71–91; RESP 18–20; TEMP 36.2–36.6; O2SAT 90–96
[2020-05-09] MEDS: metroNIDAZOLE 500 MG/100 ML PIGGYBACK 100 MG IV ×3 (03:31→19:25)
[2020-05-09 05:23] LABS: Add Manual Diff / Slide Review NO; Basophils Absolute Auto 0 /uL (0-100); Basophils Percent Auto 0.1 % (0-2); Eosinophils Absolute Auto 600 /uL (0-450); Eosinophils Percent Auto 6.2 % (2-4); Hematocrit 39.4 % (36-46); Hemoglobin 12.3 g/dL (12.0-16.0); Lymphocytes Absolute Auto 1500 /uL (1100-4500); Lymphocytes Percent Auto 16.4 % (25-40); Mean Corpuscular HGB Conc 31.3 % (30-36); Mean Corpuscular Hemoglobin 25.8 PG (26-34); Mean Corpuscular Volume 82.4 fL (80-100); Monocytes Absolute Auto 1200 /uL (0-900); Monocytes Percent Auto 13.8 % (3-14); Neutrophils Absolute Auto 5700 /uL (1500-7000); Neutrophils Percent Auto 63.5 % (50-75); Platelet Count 237 X10^3/uL (150-400); Red Blood Cell Count 4.78 X10^6/uL (4.0-5.2); Red Cell Distribution Width 16.7 % (11.6-14.8); White Blood Cell Count 8.9 X10^3/uL (4.5-11.0)
[2020-05-09 05:28] LABS: BUN Creatinine Ratio 32.4 (6-22); Blood Urea Nitrogen 24 mg/dL (7-17); Calcium 8.5 mg/dL (8.4-10.2); Chloride 87 mmol/L (98-107); Estimated Glomerular Filt Rate > 60.0 mL/min (>60); Glucose 103 mg/dL (80-110); HEMOLYSIS < 15 (0-50); Magnesium 1.8 mg/dL (1.6-2.3); Potassium 3.4 mmol/L (3.4-5.1); Sodium 132 mmol/L (137-145)
[2020-05-09 05:35] LABS: Carbon Dioxide 38 mmol/L (22-32)
[2020-05-09] MEDS: ALBUTEROL/IPRATROPIUM MDI 1 PUFF INH ×4 (07:38→21:01)
[2020-05-09] MEDS: PANTOPRAZOLE 40 MG VIAL IV (08:42)
[2020-05-09] MEDS: HYDROMORPHONE 1 MG INJ IV ×2 (08:42→19:25)
[2020-05-09] MEDS: ENOXAPARIN 40 MG/0.4 ML SYRINGE SUBCUT ×2 (08:42→21:02)
[2020-05-09] MEDS: FUROSEMIDE 40 MG TABLET PO (08:43)
[2020-05-09] MEDS: SPIRONOLACTONE 25 MG TABLET PO (08:43)
[2020-05-09] MEDS: LOSARTAN 50 MG TABLET 100 MG PO (08:43)
[2020-05-09] MEDS: buPROPion XL 150 MG TAB PO (08:43)
[2020-05-09] MEDS: guaiFENesin ER 600 MG TAB 1200 MG PO ×2 (08:43→21:02)
[2020-05-09] MEDS: dilTIAZem CD 180 MG CAP PO ×2 (08:44→21:02)
[2020-05-09] MEDS: ONDANSETRON 4 MG/2 ML INJ IV (09:23)
[2020-05-09] MEDS: MAGNESIUM SULFATE 2 GM/50 ML PIGGYBACK IV (09:23)
[2020-05-09] MEDS: POTASSIUM CHLORIDE 20 MEQ TAB 40 MEQ PO (11:00)
[2020-05-09] MEDS: diphenhydrAMINE 25 MG TABLET PO ×2 (11:00→16:56)
[2020-05-09] MEDS: levoFLOXacin 750 MG/150 ML PIGGYBACK 150 MG IV (11:01)
--- NOTE | 2020-05-09 11:06 | PT-IP ANOTE ---
Pt refused two time to do therapy with PT. States she went to the bathroom with nursing and was too tired to get out of bed.
--- NOTE | 2020-05-09 11:14 | PC.NURSE ---
PT IS ALERT/ORIENTED AND MOTIVATIONALLY CHALLENGED- SPOKE WITH HER AND HER SPOUSE DURING ROUNDS THIS DATE AND PT SEEMED WILLING TO GO TO SNF FOR REHAB FOR STRENGTHENING AND MANAGEMENT OF WOUND VAC- BUT SPOUSE DECLINED STATING I DON'T WANT HER IN A FACILITY THIS RN REITERATED THAT IT WAS FOR A SHORT PERIOD ONLY AND IT WOULD BE BEST FOR PT- CASE MANAGEMENT TO FOLLOW. SHE DECLINED TO WORK WITH PT THIS AM STATING SHE HAD JUST WALKED TO BATHROOM- WHEN IN FACT SHE STOOD PIVOTED AND USED BSC- MAG RIDER INFUSED AND PO KCL GIVEN FOR LAB VALUES- MEDICATED WITH 1MG IV DILAUDID PRIOR TO WOUND VAC CHANGE PER DR SOUSA- PT TOLERATED WELL AND VERTICAL MIDLINE INCISION IS SHALLOW WITH MINIMAL DRAINAGE AND APPEARS HEALTHY GRANULATION NOTED. OXYGEN TURNED TO 4L NC
--- NOTE | 2020-05-09 12:08 | PM.PN.1 ---
Subjective Subjective Date Patient Seen: 05/08/20 Time Patient Seen: 14:22 Interval history: No acute events overnight. Pt passing gas but no stool. Has done minimal ambulation in the room. Tolerating some PO, but not much. Exam Vital Signs (past 8 hours): - 05/09/20 04:30 05/09/20 07:44 05/09/20 08:00 Temperature 97.1 F L 97.1 F L Pulse Rate 78 84 84 Respiratory Rate 18 20 18 Blood Pressure 122/63 134/65 Pulse Oximetry 90 L 96 95 05/09/20 08:43 Temperature Pulse Rate Respiratory Rate Blood Pressure 134/65 Pulse Oximetry Fraction of Inspired Oxygen 50 Oxygen Delivery Method Nasal Cannula Oxygen Flow Rate 5 Narrative Exam Narrative: GENERAL: Alert, comfortable, morbidly obese. Appears stated age. Answers questions promptly and appropriately. Vital signs noted. HENT: Normocephalic, atraumatic. Hearing intact. EYES: Conjunctiva pink, sclera white, no periorbital swelling. CARDIOVASCULAR: Regular rate. No pedal edema. RESPIRATORY: Non-tachypneic, breathing comfortably on room air. GASTROINTESTINAL: Abdomen soft, obese, wound VAC in place and clean, intact and well functioning; removed and replaced during exam; wound is 10cm x 5cm with beefy granulation tissue, no exudate, no odoer, and no cellulitis SKIN: Warm, dry, soft, appropriate color for ethnicity. No other lesions, rashes, or wounds. NEURO: Alert and Oriented X 3. No gross sensory deficits, or cognitive issues. PSYCH: Appropriate affect and mood. Objective Labs Result Diagrams: 05/09/20 04:30 05/09/20 04:30 Labs: Laboratory Results - last 24 hr 05/09/20 05/09/20 04:30 04:30 WBC 8.9 RBC 4.78 Hgb 12.3 Hct 39.4 MCV 82.4 MCH 25.8 L MCHC 31.3 RDW 16.7 H Plt Count 237 Neut % (Auto) 63.5 Lymph % (Auto) 16.4 L [place] % (Auto) 13.8 Eos % (Auto) 6.2 H Baso % (Auto) 0.1 Neut # (Auto) 5700 Lymph # (Auto) 1500 [place] # (Auto) 1200 H Eos # (Auto) 600 H Baso # (Auto) 0 Sodium 132 L Potassium 3.4 Chloride 87 L Carbon Dioxide 38 H BUN 24 H Creatinine 0.74 Estimated GFR > 60.0 BUN/Creatinine Ratio 32.4 H Glucose 103 Calcium 8.5 Phosphorus 3.0 Magnesium 1.8 Assessment & Plan Assessment & Plan narrative: 59 yo woman with COPD, chronic hypoxic respiratory failure, diabetes, severe morbid obesity POD6 s/p laparotomy and SBR for strangulated umbilical hernia. She is passing gas and tolerating PO. Vac change was done today. Pt is encouraged to ambulate. Working on dispo plan once pt is able to ambulate, tolerate PO, and pass stool. Needs to work with PT/OT, ambulate as much as tolerated Wean off O2 as tolerated home meds as appropriate Pain meds PRN Cont Zosyn for pneumonia DVT ppx GI ppx dispo pending appropriate return to bowel function, off IV abx, and able to tolerate a diet COVID-19 COVID-19 status: Negative Result date/Date tested (Pos, Neg/Pending): 05/03/20 Time Spent With Patient Time with patient: 15-24 minutes Quality VTE Deep Vein Thrombosis/Pulmonary Embolism Present on Admission: No
--- NOTE | 2020-05-09 12:12 | CM.DPC ---
DCP Cont: Met with patient in her room, as well as . Surgeon indicated that patient will keep wound vac on the week end, and discharge home with wet to dry dressing. Hospitalist was questioning potentially getting a wound vac in the home, as it may increase the healing process. Patient is concerned about having a wound vac at home, but willing if necessary. Authorization would need to be approved by [facility], but not until Monday, for there is no availability with insurance company on week-ends. Left a message with Page at [facility]. Did not leave detailed message regarding patient's name, but indicated that there could be a potential need for a patient to have a wound vac at home, and that patient has [employer], and would need further authorization. In message, let her know that patient is to be discharged home with wet to dry dressing, but wound vac may be appropriate for healing process. Mentioned long-term to patient and . She is slow to work with P.T. team. feels that he can meet her needs at home with the help of their daughters. Inpatient rehab at [facility] has no bed availability until . Let patient and know that this residential case manager can bring in Medicare Choice facilities to review. Patient indicated, I don't have Medicare. Let her know that these are facilities under the Medicare guidelines, although she does not have Medicare. P: DCP to continue to follow. Will bring in Medicare Choice List, in case skilled is an option. This would also take [facility] auth. Tiarra Hannon RN/Insurance Account Executive
--- NOTE | 2020-05-09 12:59 | PT.IPTN ---
Current Diagnoses Heart failure, unspecified (05/03/20) Chronic obstructive pulmonary disease, unspecified (05/03/20) Surgery Performed Operation Date: 05/03/20 12:30 Actual Procedures p Exploratory Laparotomy GEN Cami Camp MD Physical Therapy Treatment Note M2 PT-IP Current Condition Start: 05/06/20 14:50 Freq: NEEDED Status: Active Protocol: Document 05/06/20 10:52 AB (Rec: 05/06/20 15:09 AB [id number]) Physical Therapy Current Condition Current Condition Evaluation Date 05/06/20 Treatment Diagnosis hernia s/p ex-lap and small bowel resection; difficulty in walking Onset Date 05/03/20 M3 PT-IP Subjective Start: 05/06/20 14:50 Freq: NEEDED Status: Active Protocol: Document 05/09/20 12:41 KS (Rec: 05/09/20 13:24 KS [id number]) Subjective Physical Therapy Visit Type Type Treatment Note Visit Start Time 12:41 Visit Stop Time 12:59 Total Visit Minutes 18 Number of SENIOR IOS DEVELOPER Visits 2 Physical Therapy Visit Comments Patient Comments pt requires motivation to participate M4 PT-IP Mobility and Gait Start: 05/06/20 14:50 Freq: NEEDED Status: Active Protocol: Document 05/09/20 12:41 KS (Rec: 05/09/20 13:24 KS [id number]) PT-Bed Mobility Assessment Supine to Sit Supine to Sit Minimal Assistance,Head of Bed Elevated,Bedrails Scooting Scooting to Edge of Bed Standby Assistance Scooting Up and Down in Bed Standby Assistance PT-Transfer Assessment Sit to and From Stand Sit to and from Stand Standby Assistance,1 Person Assistance,Use of Upper Extremities Equipment Transfer Assistive Device Gait Belt,Front Wheeled Walker Orthotic/Prosthetic Devices or Brace: No Transfers Transfer Destination Chair Transfer Technique pt ambulated w/ FWW Transfer Ability Level of Assist Standby Assistance,1 Person Assistance,Use of Upper Extremities Comments Mobility Comments Pt in bed upon arrival and initially refused therapy d/t reported fatigue. Informed pt her lunch arrived and she should get into her chair to eat, to which she complied. Min A for sup<>sit w/ HOB elevated. SBA for scooting to EOB and sit<>stand w/ FWW. Pt then ambulated ~5 ft to chair SBA and stand<>sit and repositioned herself in chair SBA. Pt refused further therapy. Encouraged pt to walk further w/ nursing this PM. Pt left in room w/ all needs in reach and BAND LINING BANDER in room. Gait Assessment Gait Gait Assistance Required: Standby Assistance,1 Person Assist Distance (Feet) 5 Able to Maintain Weight Bearing Status Yes During Gait Assistive Devices Assistive Device Gait Belt,Front Wheeled Walker Orthotic/Prosthetic Devices or Brace: No Gait Deviations General Gait Pattern Antalgic,Decreased Stride Length,Decreased Feet Clearance,Wide Based Gait Factors Limiting Gait Function Factors Limiting Gait Function Decreased Activity Tolerance, Decreased Strength,Poor Balance,Poor Safety Awareness, Respiratory Distress Comments Gait Comments Pt ambulated only from bed to chair w/ FWW and SBA. ~5ft. Pt refused further ambulation. M5 PT-IP Objective Assessments Start: 05/06/20 14:50 Freq: NEEDED Status: Active Protocol: Document 05/06/20 10:52 AB (Rec: 05/06/20 15:09 AB [email or web address]) Orientation Orientation/Cognition Level of Alertness Alert Orientation Name,Place,Situation Safety Awareness Decreased Safety Awareness Gross Range of Motion Lower Extremity ROM Assessment Within Functional Limits Strength Lower Extremity Strength Assessment Bilaterally Impaired Hip 3+/5 Knee 3+/5 Coordination Assessment Gross Coordination Gross Coordination WNL Sensation Assessment Sensation Gross Sensation WNL Muscle Tone Muscle Tone WNL Yes M6 PT-IP Treatment Start: 05/06/20 14:50 Freq: NEEDED Status: Active Protocol: Document 05/09/20 12:41 KS (Rec: 05/09/20 13:24 KS [id number]) Physical Therapy Treatment Education Education Provided Precautions,Safety M7 PT-IP Assessment and Plan Start: 05/06/20 14:50 Freq: NEEDED Status: Active Protocol: Document 05/09/20 12:41 KS (Rec: 05/09/20 13:24 KS [id number]) PT Summary Assessment and Plan Potential Rehabilitation Potential Fair Summary Impairments Pain,ROM,Strength,Balance, Coordination,Sensation,Tone, Cognition,Bed Mobility, Transfers,Gait,Activity Tolerance Progress Towards Goals Slow Progress due to Medical Issues,Slow Progress due to Activity Tolerance Assessment Summary Pt continues to require motivation to get out of bed. Min A for sup<>sit w/ HOB elevated, SBA for sit<>stand w / FWW and ambulation ~5 ft to chair. Pt refused further treatment. Encouraged pt to ambulate further and complete LE exercises this PM for strengthening and blood flow. Difficult to assess pts tolerance for activity at this time d/t lack of motivation and refusal of exercises and ambulation. Goals Bed Mobility Goal Minimal Assistance Transfer Goal Minimal Assistance,Front Wheeled Walker Gait Goal Minimal Assistance,Front Wheel Walker Gait Distance 50 Days to Meet Goals 10 Frequency of Treatment Frequency Of Treatment Once a Day Treatment Plan Physical Therapy Treatment Plan Bed Mobility Training,Transfer Training,Gait Training, Therapeutic Exercise,Balance Retraining,Post Op Education, Discharge Planning,Hot or Cold Pack,Neuromuscular Re-ed, Coordination Retraining,Manual Therapy Other Recommendations and Next Treatment standing balance/tolerance, Focus transfers, ambulation Recommendations To Nursing Amount of Assist Needed 1 Person Assist Discharge Recommendations PT Discharge Recommendations Home with Assistance,Home with / Assist,Home Health Equipment Needed for Home Before FWW Discharge Transportation Needs at Discharge Private Vehicle,Wheelchair/ Cabulance
--- NOTE | 2020-05-09 13:21 | OT.IP.TRT ---
Current Diagnoses Heart failure, unspecified (05/03/20) Chronic obstructive pulmonary disease, unspecified (05/03/20) Surgery Performed Operation Date: 05/03/20 12:30 Actual Procedures p Exploratory Laparotomy GEN Cami Camp MD Occupational Therapy Treatment Note M2 OT-IP Current Condition Start: 05/08/20 14:49 Freq: Status: Active Protocol: Document 05/08/20 14:49 CCC (Rec: 05/08/20 15:07 [facility] [id number]) Occupational Therapy Current Condition Current Condition Evaluation Date 05/08/20 Treatment Diagnosis Hernia s/p ex-lap resection, small bowel resection Diagnosis Onset Date 05/03/20 M3 OT- IP Subjective and Pain Start: 05/08/20 14:49 Freq: Status: Active Protocol: Document 05/09/20 14:37 CGR (Rec: 05/09/20 14:52 CGR [email or web address]) OT- Subjective Occupational Therapy Visit Type Type Progress Note Visit Start Time 13:10 Visit Stop Time 13:21 Total Visit Minutes 11 Occupational Therapy Visit Comments Patient Comments Pt requests to get to toilet and return to bed OT Pain Assessment Pain When Pain Assessed At Rest Pain Present Pain Present Pain Reported Location Abdomen Scale Used did not rate but indicated pain Pain Behaviors Facial Grimacing,Guarding Management Techniques Modification of Treatment,Re- positioning M4 OT- IP ADL's Start: 05/08/20 14:49 Freq: Status: Active Protocol: Document 05/09/20 14:37 CGR (Rec: 05/09/20 14:52 CGR [email or web address]) OT [id number] General Evaluation Self-Feeding Ability Independent Comments OT Self-Feeding Comments finishing limited lunch OT ADL-Grooming Comments OT Grooming Comments pt declined OT ADL-Oral Care Comments Oral Care Comments pt declined OT ADL-Dressing Comments OT Dressing Comments not performed OT ADL-Toileting General Evaluation Toileting Ability Minimal Assistance Devices Toileting Assistive Devices Commode Comments OT Toileting Comments pt transfered to BSC and urinated seated. Pt was able to perform front pericare with set up of wipe when encouraged to perform herself. OT ADL-Bathing Comments OT Bathing Comments Not performed as pt still has wound vac. M6 OT- IP Functional Cognition Start: 05/08/20 14:49 Freq: Status: Active Protocol: Document 05/08/20 14:49 CCC (Rec: 05/08/20 15:07 [facility] [id number]) Cognitive Factors Limiting Selfcare Function Cognitive Ability Level of Alertness Alert Patient Orientation Name,Place,Situation Attention Span Ability Capable of Focused Attention, Capable of Sustained Attention Ability to Follow Commands Able to Follow One Step Commands Cognitive Comments Cognitive Assessment Comments Pt able to follow directions but distracted by itchiness in her legs. Pt having a hard time to initiate and agreed to do things for herself and her who is present ends up assist her with her needs. M7 OT- IP Mobility and Balance Start: 05/08/20 14:49 Freq: Status: Active Protocol: Document 05/09/20 14:37 CGR (Rec: 05/09/20 14:52 CGR [email or web address]) OT- Bed Mobility Assessment Sit to Supine Sit to Supine Assist Minimal Assistance,1 Person Assistance,Head of Bed Elevated,Bedrails OT-Transfer Assessment Sit to and From Stand Sit to and from Stand Contact Guard Assistance Transfers Transfer Ability Contact Guard Assistance Technique Transfer Destination Bed,Bedside Commode,Chair Transfer Technique Stand Step Pivot Devices Transfer Assistive Devices Gait Belt,Front Wheeled Walker Comments Mobility Comments Pt requesting to get to BSC then to bed and declined ambulating into the bathroom for urination on the toilet. OT- Balance Assessment Sitting Balance and Reactions Static Sitting Balance Ability Good M8 OT- IP Objective Assessments Start: 05/08/20 14:49 Freq: Status: Active Protocol: Document 05/08/20 14:49 [facility] (Rec: 05/08/20 15:07 [facility] [id number]) OT Strength Comments Strength Comments At least 3+/5. M9 OT- IP Assessment and Plan Start: 05/08/20 14:49 Freq: Status: Active Protocol: Document 05/09/20 14:37 CGR (Rec: 05/09/20 14:52 CGR [email or web address]) OT Summary Assessment and Plan Potential Rehabilitation Potential Fair Analytic Complexity at Evaluation Low Summary OT Impairments Functional Mobility,Grooming, Dressing,Toileting,Bathing, Toilet Transfers,Shower Transfers,Activity Tolerance Progress Towards Goals Slow Progress due to Medical Issues,Slow Progress due to Activity Tolerance Assessment Summary Pt would benefit from increased activity levels with therapy and nursing, however, in today's session, pt states fatigue and dizziness. Pt transferred to BSC and bed with CGA and is likely to progress well with increased activity. Goals Grooming Goal Independent Dressing Goal Independent Toileting Goal Independent Bathing Goal Independent Toilet Transfer Goal Independent Shower Transfer Goal Independent Patient/Caregiver Education Goal Demonstrate Energy Conservation and Pacing, Caregiver Independent Assisting Patient Days to Meet Goals 5 Frequency of Treatment Frequency Of Treatment Once a Day Treatment Plan OT Treatment Plan ADL Training,Functional Mobility,Patient/Family Education,Discharge Planning Other Treatment Recommendations and Next increased activity level. Treatment Focus Discharge Recommendations OT Discharge Recommendations Home with Assistance,Home Health Transportation Needs at Discharge Private Vehicle
[2020-05-09] MEDS: INSULIN ASPART 100 UNIT/ML INSULN PEN SUBCUT ×2 (13:44→16:56)
--- NOTE | 2020-05-09 16:48 | P.PN_ITS ---
Subjective Subjective Date Patient Seen: 05/09/20 Interval history: Patient continues to have significant itching of her lower extremities and upper arms despite discontinuation of Zosyn and the addition of Benadryl. Her appetite is poor but she is attempting to eat. She has mild shortness of breath. She reports minimal pain. The patient's wound VAC was changed today. We discussed disposition for her at discharge and she and her would like to return home with home health. Exam Vital Signs (past 8 hours): - 05/09/20 13:07 05/09/20 15:38 Temperature 97.1 F L Pulse Rate 76 Respiratory Rate 20 Blood Pressure 125/70 Pulse Oximetry 90 L Fraction of Inspired Oxygen 50 Oxygen Delivery Method Nasal Cannula,CPAP Oxygen Flow Rate 4 Narrative Exam Narrative: Pleasant female in no obvious distress Lungs: Decreased breath sounds with occasional scattered crackle Cardiac exam: Regular rate and rhythm normal S1-S2 Abdomen obese soft and nontender, wound VAC in place, wound reviewed earlier with nice pink healthy granulation tissue Extremities: No edema Skin exam: Macular eruption along the thighs and posterior upper extremities. Objective Labs Result Diagrams: 05/09/20 04:30 05/09/20 04:30 Labs: Laboratory Results - last 24 hr 05/09/20 05/09/20 04:30 04:30 WBC 8.9 RBC 4.78 Hgb 12.3 Hct 39.4 MCV 82.4 MCH 25.8 L MCHC 31.3 RDW 16.7 H Plt Count 237 Neut % (Auto) 63.5 Lymph % (Auto) 16.4 L Mathews % (Auto) 13.8 Eos % (Auto) 6.2 H Baso % (Auto) 0.1 Neut # (Auto) 5700 Lymph # (Auto) 1500 Mathews # (Auto) 1200 H Eos # (Auto) 600 H Baso # (Auto) 0 Sodium 132 L Potassium 3.4 Chloride 87 L Carbon Dioxide 38 H BUN 24 H Creatinine 0.74 Estimated GFR > 60.0 BUN/Creatinine Ratio 32.4 H Glucose 103 Calcium 8.5 Phosphorus 3.0 Magnesium 1.8 Assessment & Plan Assessment & Plan narrative: Strangulated umbilical hernia status post exploratory laparotomy and small-bowel resection, present on admission. Active. -surgery on 05/03/2020 -Continue postoperative management per primary team General surgery. -d/c'd antibiotic given concern for allergic reaction -PT/OT -continue wound vac per surgery, [id number] at discharge 2. Acute on chronic respiratory failure in setting of oxygen-dependent COPD, present on admission. Stable. -Does not represent acute exacerbation of COPD. Patient is on 3 L of oxygen at baseline. -patient was extubated on postop day 2. -continue supplemental O2 to maintain sat 80-90%, incentive spirometry q.1 hour while awake, MDI -patient is on her usual outpatient Lasix 3. Possible aspiration pneumonia, not present on admission, active -repeat chest x-ray 05/05 showed new left lower lobe infiltrate -patient is currently on Zosyn but developed rash on lower extremities -change antibiotic to Levaquin and Flagyl due to possible lower GI reaction to Zosyn 4. Acute kidney injury, present on admission. Active. -resolving -admit creatinine 0.8, peaked at 2.08, now back to baseline -avoid nephrotoxic agents 5. Systolic congestive heart failure, chronic, present on admission. Stable. --now back on usual heart failure medications -Echocardiogram demonstrated left ventricular systolic function appears to be mildly depressed in a global fashion with an ejection fraction grossly estimated at 45 to 50% without anyobvious focal wall motion abnormality. Left ventricular volumes are mildly increased with moderate concentric LVH suggestive of hypertensive heartdisease. Diastolic function could not be assessed because of her sinus tachycardia. The right ventricle appears normal in size and systolic function. Right ventricular systolic pressure cannot be estimated but CVP is likely around 3 mmHg. There is mild biatrial enlargement. The mitral valve is not well seen but grossly appears normal with probable mild to moderate mitral regurgitation with an eccentric regurgitant jet. There is mild aortic valve sclerosis without stenosis with mild aortic regurgitation. The ascending aorta is mild to moderately enlarged. -patient recieved IV lasix after extubation with improvement of breathing 6. Diabetes mellitus type 2, non-insulin using, chronic, present on admission. Stable. -Hemoglobin A1c 8.9% indicative of poor glycemic control. -Held Januvia. -Continue every 6 hour blood glucose checks and medium dose correctional scale insulin 7. Hypertension, chronic, present on admission. -moderately hypertensive postop -continue furosemide losartan and spironolactone as well as diltiazem 8. Depression, chronic, present on admission. Stable. -resume bupropion 150 mg daily. 9. Obstructive sleep apnea on CPAP, chronic, present on admission. Stable. 10. Morbid obesity, chronic, present on admission. Stable. -BMI 40.4 -Due to morbid obesity patient is high risk of complication or bad outcome intra and postoperatively. -consult dietitian -poor oral intake post operatively 11. Postop chest pain, resolved -patient with nonpleuritic left side chest discomfort on 05/07/2020, EKG with NSR, nonspecific T-wave abnormality, no significant ST change -negative serial troponin 12. Possible antibiotic allergic reaction -Zosyn discontinued 05/08 -Benadryl as needed 13. disposition-home with home health on Monday Dr. Camp to decide on whether wound vac needed as an outpatient DVT prophylaxis: On enoxaparin Quality VTE Deep Vein Thrombosis/Pulmonary Embolism Present on Admission: No
--- NOTE | 2020-05-09 20:29 | PC.NURSE ---
Evening shift note: Pt A/O x3, resting in bed watching tv, refused to work with PT today for dayshift, stating I already got up and walked (when in fact all she did was stand and pivot to the bedside commode). Refusing to be turned, just wants to stay put. VSS, 4L NC sats 92-96%, minimal intake, refused dinner stating she just wants tomato soup and crackers, this nurse provided. It was noticed that pt has not had a BM during this stay in the hospital, hospitalist notified, will pass this information along to Dr Camp. Call light within reach, able to make needs known, bed low and locked, will continue to monitor.
[2020-05-10] VITALS (9 sets, daily range): BP systolic 120–154; BP diastolic 73–85; PULSE 69–89; RESP 16–20; TEMP 36.2–36.9; O2SAT 87–98
[2020-05-10] MEDS: HYDROMORPHONE 1 MG INJ IV ×2 (00:34→05:45)
[2020-05-10] MEDS: metroNIDAZOLE 500 MG/100 ML PIGGYBACK 100 MG IV ×3 (04:06→19:25)
[2020-05-10 05:35] LABS: Add Manual Diff / Slide Review NO; Basophils Absolute Auto 0 /uL (0-100); Basophils Percent Auto 0.4 % (0-2); Eosinophils Absolute Auto 600 /uL (0-450); Eosinophils Percent Auto 6.1 % (2-4); Hematocrit 39.6 % (36-46); Hemoglobin 12.7 g/dL (12.0-16.0); Lymphocytes Absolute Auto 1800 /uL (1100-4500); Lymphocytes Percent Auto 16.9 % (25-40); Mean Corpuscular Hemoglobin 26.5 PG (26-34); Mean Corpuscular Volume 82.6 fL (80-100); Monocytes Absolute Auto 1200 /uL (0-900); Monocytes Percent Auto 11.7 % (3-14); Neutrophils Absolute Auto 6800 /uL (1500-7000); Neutrophils Percent Auto 64.9 % (50-75); Platelet Count 231 X10^3/uL (150-400); Red Blood Cell Count 4.79 X10^6/uL (4.0-5.2); Red Cell Distribution Width 16.5 % (11.6-14.8); White Blood Cell Count 10.5 X10^3/uL (4.5-11.0)
[2020-05-10 05:54] LABS: Blood Urea Nitrogen 21 mg/dL (7-17); Calcium 8.5 mg/dL (8.4-10.2); Chloride 87 mmol/L (98-107); Estimated Glomerular Filt Rate > 60.0 mL/min (>60); Glucose 129 mg/dL (80-110); HEMOLYSIS < 15 (0-50); Magnesium 2.2 mg/dL (1.6-2.3); Phosphorous 3.7 mg/dL (2.8-4.1); Potassium 3.5 mmol/L (3.4-5.1); Sodium 132 mmol/L (137-145)
[2020-05-10 06:00] LABS: Carbon Dioxide 38 mmol/L (22-32)
--- NOTE | 2020-05-10 06:20 | PC.NURSE ---
[facility] Worker Note-Patient slept with 5L humidified NC on overnight, SpO2 remained >93%, her own C-pap with 5L bleed-in placed on her at midnight, but she would desat to 79% requiring O2 increase to 8L, still not bringing sats above 90%, denies difficult breathing, device assessed by RT and myself, patient says she does not feel an air leak, none noted. Medicated with IV Dilaudid for abdominal pain, denied puritis to rask on extremities.
[2020-05-10] MEDS: ALBUTEROL/IPRATROPIUM MDI 1 PUFF INH ×4 (07:35→20:07)
[2020-05-10] MEDS: ENOXAPARIN 40 MG/0.4 ML SYRINGE SUBCUT ×2 (08:16→20:56)
[2020-05-10] MEDS: LOSARTAN 50 MG TABLET 100 MG PO (08:16)
[2020-05-10] MEDS: PANTOPRAZOLE 40 MG VIAL IV (08:16)
[2020-05-10] MEDS: buPROPion XL 150 MG TAB PO (08:17)
[2020-05-10] MEDS: FUROSEMIDE 40 MG TABLET PO (08:17)
[2020-05-10] MEDS: dilTIAZem CD 180 MG CAP PO ×2 (08:18→20:56)
[2020-05-10] MEDS: INSULIN ASPART 100 UNIT/ML INSULN PEN SUBCUT ×3 (08:18→16:41)
[2020-05-10] MEDS: SPIRONOLACTONE 25 MG TABLET PO (08:18)
--- NOTE | 2020-05-10 09:45 | P.PN_ITS ---
Subjective Subjective Date Patient Seen: 05/10/20 Time Patient Seen: 09:45 Interval history: No acute events overnight. The patient says she has been passing gas but has not passed any stool since surgery. She denies shortness of breath or chest pain. Tolerating p.o.. Exam Vital Signs (past 8 hours): - 05/10/20 07:43 05/10/20 08:00 05/10/20 08:16 Temperature 98.5 F Pulse Rate 77 77 Respiratory Rate 18 18 Blood Pressure 154/85 H 154/85 H Pulse Oximetry 93 91 Fraction of Inspired Oxygen 50 Oxygen Delivery Method Nasal Cannula Oxygen Flow Rate 3 Narrative Exam Narrative: GENERAL: Alert, comfortable, morbidly obese. Appears stated age. Answers questions promptly and appropriately. Vital signs noted. HENT: Normocephalic, atraumatic. Hearing intact. EYES: Conjunctiva pink, sclera white, no periorbital swelling. CARDIOVASCULAR: Regular rate. No pedal edema. RESPIRATORY: Non-tachypneic, breathing comfortably on nasal cannula 3 L GASTROINTESTINAL: Abdomen soft, obese, wound VAC in place and clean, intact and well functioning SKIN: Warm, dry, soft, appropriate color for ethnicity. No other lesions, rashes, or wounds. NEURO: Alert and Oriented X 3. No gross sensory deficits, or cognitive issues. PSYCH: Appropriate affect and mood. Objective Labs Result Diagrams: 05/10/20 04:45 05/10/20 04:45 Labs: Laboratory Results - last 24 hr 05/10/20 05/10/20 04:45 04:45 WBC 10.5 RBC 4.79 Hgb 12.7 Hct 39.6 MCV 82.6 MCH 26.5 MCHC 32.0 RDW 16.5 H Plt Count 231 Neut % (Auto) 64.9 Lymph % (Auto) 16.9 L Hendricks % (Auto) 11.7 Eos % (Auto) 6.1 H Baso % (Auto) 0.4 Neut # (Auto) 6800 Lymph # (Auto) 1800 Hendricks # (Auto) 1200 H Eos # (Auto) 600 H Baso # (Auto) 0 Sodium 132 L Potassium 3.5 Chloride 87 L Carbon Dioxide 38 H BUN 21 H Creatinine 0.70 Estimated GFR > 60.0 BUN/Creatinine Ratio 30.0 H Glucose 129 H Calcium 8.5 Phosphorus 3.7 Magnesium 2.2 Assessment & Plan Assessment & Plan narrative: 59 yo woman with COPD, chronic hypoxic respiratory failure, diabetes, severe morbid obesity POD7 s/p laparotomy and SBR for strangulated umbilical hernia. She is passing gas and tolerating PO. Vac change was done yesterday. Pt is encouraged to ambulate. She has not yet passed any stool. Pain is being controlled on IV pain meds. She is on IV abx for pneumonia per hospitalist. Was changed from zosyn to cipro/flagyl due to rash on LE and UE. She is on her baseline 3L nasal cannula O2. Working on dispo plan once pt is able to ambulate, tolerate PO, and pass stool. Work with PT/OT, ambulate as much as tolerated Change to PO pain med, keep IV for breakthrough only Add docusate scheduled and miralax PRN home meds as appropriate Abx for pneumonia per hospitalist DVT ppx GI ppx Dispo pending the above, possibly Monday if pt passes stool, is on baseline NC O2, tolerating PO pain med, and able to ambulate and manage wound care at home COVID-19 COVID-19 status: Negative Result date/Date tested (Pos, Neg/Pending): 05/03/20 Time Spent With Patient Time with patient: 25 - 35 minutes Quality VTE Deep Vein Thrombosis/Pulmonary Embolism Present on Admission: No
--- NOTE | 2020-05-10 09:56 | PT.IPTN ---
Current Diagnoses Heart failure, unspecified (05/03/20) Chronic obstructive pulmonary disease, unspecified (05/03/20) Surgery Performed Operation Date: 05/03/20 12:30 Actual Procedures p Exploratory Laparotomy GEN Cami Camp MD Physical Therapy Treatment Note M2 PT-IP Current Condition Start: 05/06/20 14:50 Freq: NEEDED Status: Active Protocol: Document 05/06/20 10:52 AB (Rec: 05/06/20 15:09 AB [id number]) Physical Therapy Current Condition Current Condition Evaluation Date 05/06/20 Treatment Diagnosis hernia s/p ex-lap and small bowel resection; difficulty in walking Onset Date 05/03/20 M3 PT-IP Subjective Start: 05/06/20 14:50 Freq: NEEDED Status: Active Protocol: Document 05/10/20 09:38 CLB (Rec: 05/10/20 10:27 CLB [id number]) Subjective Physical Therapy Visit Type Type Treatment Note Visit Start Time 09:38 Visit Stop Time 09:56 Total Visit Minutes 18 Number of PUMPER GAUGER Visits 3 Physical Therapy Visit Comments Patient Comments Pt willing to get up to sit in chair after use of BSC. M4 PT-IP Mobility and Gait Start: 05/06/20 14:50 Freq: NEEDED Status: Active Protocol: Document 05/10/20 09:38 CLB (Rec: 05/10/20 10:27 CLB [id number]) PT-Bed Mobility Assessment Supine to Sit Supine to Sit Standby Assistance,Head of Bed Elevated,Bedrails Sit to Supine Sit to Supine Standby Assistance,Head of Bed Elevated,Bedrails Scooting Scooting to Edge of Bed Standby Assistance Scooting Up and Down in Bed Standby Assistance PT-Transfer Assessment Sit to and From Stand Sit to and from Stand Standby Assistance,1 Person Assistance,Use of Upper Extremities Equipment Transfer Assistive Device Gait Belt,Front Wheeled Walker Orthotic/Prosthetic Devices or Brace: No Transfers Transfer Destination Bedside Commode Transfer Technique Stand Step Pivot Transfer Ability Level of Assist Standby Assistance,1 Person Assistance,Use of Upper Extremities Comments Mobility Comments Pt in bed needing to use BSC and agreeable to sit in chair after tx. Pt required SBA for all bed mobility with HOB elevated and use of bed rails. Pt stood SBA and transferred to BSC with assist of lines. Pt able to perform own pericare. Pt then stood from [facility] SBA and reported pain and dizziness stating she needed to get back into bed and lay down. Pt transferred to bedside SBA and returned to supine SBA with HOB elevated and use of bed rails. Pt left in bed with all needs within reach, bed alarm on and present. RN informed pt was back in bed refusing to sit in chair or ambulate. Gait Assessment Comments Gait Comments Pt refused. M5 PT-IP Objective Assessments Start: 05/06/20 14:50 Freq: NEEDED Status: Active Protocol: Document 05/06/20 10:52 AB (Rec: 05/06/20 15:09 AB [email or web address]) Orientation Orientation/Cognition Level of Alertness Alert Orientation Name,Place,Situation Safety Awareness Decreased Safety Awareness Gross Range of Motion Lower Extremity ROM Assessment Within Functional Limits Strength Lower Extremity Strength Assessment Bilaterally Impaired Hip 3+/5 Knee 3+/5 Coordination Assessment Gross Coordination Gross Coordination WNL Sensation Assessment Sensation Gross Sensation WNL Muscle Tone Muscle Tone WNL Yes M6 PT-IP Treatment Start: 05/06/20 14:50 Freq: NEEDED Status: Active Protocol: Document 05/09/20 12:41 KS (Rec: 05/09/20 13:24 KS [id number]) Physical Therapy Treatment Education Education Provided Precautions,Safety M7 PT-IP Assessment and Plan Start: 05/06/20 14:50 Freq: NEEDED Status: Active Protocol: Document 05/10/20 09:38 CLB (Rec: 05/10/20 10:27 CLB [id number]) PT Summary Assessment and Plan Potential Rehabilitation Potential Fair Summary Progress Towards Goals Slow Progress due to Medical Issues,Slow Progress due to Activity Tolerance Assessment Summary Pt refused ambulation or sitting in chair this session. Pt was SBA for bed mobility and transfer to [facility], pt with increased pain and dizziness after use of BS insisting she needed to get back to bed and lay down. Goals Bed Mobility Goal Minimal Assistance Transfer Goal Minimal Assistance,Front Wheeled Walker Gait Goal Minimal Assistance,Front Wheel Walker Gait Distance 50 Days to Meet Goals 10 Frequency of Treatment Frequency Of Treatment Once a Day Treatment Plan Physical Therapy Treatment Plan Bed Mobility Training,Transfer Training,Gait Training, Therapeutic Exercise,Balance Retraining,Post Op Education, Discharge Planning,Hot or Cold Pack,Neuromuscular Re-ed, Coordination Retraining,Manual Therapy Other Recommendations and Next Treatment standing balance/tolerance, Focus transfers, ambulation Recommendations To Nursing Amount of Assist Needed 1 Person Assist Discharge Recommendations PT Discharge Recommendations Home with Assistance,Home Health Equipment Needed for Home Before FWW Discharge Transportation Needs at Discharge Private Vehicle,Wheelchair/ Cabulance
--- NOTE | 2020-05-10 10:33 | CM.DPC ---
Addendum entered by Tiarra Hannon R.N. 05/10/20 12:25: Received a call back from Heather Quezada at [facility]. Her direct phone number is: [phone]. She also gave her fax number of: [phone]. Page from [facility] had referred Heather to this case. Let Heather know that it is uncertain as of yet if patient will need a wound vac. Also let her know that patient has [employer]. Heather asked to have information faxed to her, so she can start the process, in case a home wound vac is needed. Faxed her over face sheet, today's prog note, as well as operative report and history and physical. She indicated that she will call nurses station to get model number of wound vac. Let nurse, Britt, know that she may be calling her with additional information. If patient does need wound vac, she will email form for signature, and would prefer to sent to [facility]. Other option is for her to fax form over for signature. Original Note: DCP Cont: Checked in with patient, she had worked with P.T. today. was in room, and confirmed that he wishes patient to go home. Asked again, about her going to [facility]. Patient stated, she really doesn't want to go to [facility], but worries about her family being able to do her dressing changes. Reminded her that [facility] has been ordered, and they are working on authorization. Discussed briefly with Dr. Zuniga. Stated that surgeon, Dr. Camp, will be following her tomorrow, to see if patient will also need wound vac. Have already left a message with [facility] in case wound vac is needed. Surgeon over the week end had mentioned her going home with a wet to dry dressing change. P: DCP to continue to follow. Plan is for home tomorrow, with [facility]. February at [facility] [place] also has referral, and will need to update her as well, for she would also need to attempt a authorization. Will need to also follow up with surgeon to determine if wound vac is needed. Tiarra Hannon RN/Perinatal Tech
[2020-05-10] MEDS: polyethylene glycoL 3350 17 GM POWD.PACK PO ×2 (10:38→20:56)
[2020-05-10] MEDS: levoFLOXacin 750 MG/150 ML PIGGYBACK 150 MG IV (10:38)
[2020-05-10] MEDS: DOCUSATE 100 MG CAPSULE PO ×2 (10:38→20:56)
[2020-05-10] MEDS: OXYCODONE IR 10 MG TABLET PO ×2 (10:39→17:28)
[2020-05-10] MEDS: POTASSIUM CHLORIDE 20 MEQ/15 ML UDC 40 MEQ PO (11:05)
--- NOTE | 2020-05-10 13:23 | PC.NURSE ---
PT IN GOOD SPIRITS BUT DECLINES TO WORK WITH PT/OT- WILLING TO GET UP TO BSC BUT THAT IS IT- INITIATED PO OXYCODONE THIS DATE WITH GOOD EFFECTS THUS FAR- DID C/O NAUSEA BUT REPORTS IT MAY BE STOOL/GAS IN ABD- WOUND VAC CHANGED YESTERDAY AND SHE ENDORSES FLATUS- TAKING MIRALAX/COLACE FOR BOWEL CARE- AT HER HOME DOSE OF 3L NC ( CPAP @ NOC) WITH SPO2 90-94%- POOR APPETITE
--- NOTE | 2020-05-10 16:13 | PM.EVENT ---
Event Note Date Patient Seen: 05/10/20 Event Note: Patient continues to make excellent progress post operatively. Nothing further to add. Will sign off. Anticipate discharge home tomorrow per Dr. Camp.
[2020-05-10] MEDS: diphenhydrAMINE 25 MG TABLET PO (16:20)
[2020-05-11] VITALS (8 sets, daily range): BP systolic 125–185; BP diastolic 63–94; PULSE 69–94; RESP 16–20; TEMP 35.7–36.6; O2SAT 89–95
[2020-05-11] MEDS: OXYCODONE IR 10 MG TABLET PO ×2 (03:53→11:05)
[2020-05-11] MEDS: metroNIDAZOLE 500 MG/100 ML PIGGYBACK 100 MG IV (03:54)
[2020-05-11] MEDS: diphenhydrAMINE 25 MG TABLET PO (03:54)
[2020-05-11] MEDS: SODIUM CHLORIDE 0.9% FLUSH 10 ML IV (03:54)
--- NOTE | 2020-05-11 04:16 | PC.NURSE ---
PT STATES I DON;T THINK I'M READY TO GO HOME YET This stated as she sits on edge of bed after using bsc- she declines to walk into bathroom. No bm yet but reports increased flatus and rumbles. Pt has repeatedly refused most attempts of increased activity or even to sit in chair or use bathroom, as well as offerings of oral and personal hygeine. Wound Vac dressing changed on Sat and is intact and patent and plan is for discharge today to either snf for rehab/dressing changes or home with home health
[2020-05-11] MEDS: ENOXAPARIN 40 MG/0.4 ML SYRINGE SUBCUT ×2 (08:19→21:19)
[2020-05-11] MEDS: polyethylene glycoL 3350 17 GM POWD.PACK PO (08:19)
[2020-05-11] MEDS: SPIRONOLACTONE 25 MG TABLET PO (08:20)
[2020-05-11] MEDS: LOSARTAN 50 MG TABLET 100 MG PO (08:20)
[2020-05-11] MEDS: buPROPion XL 150 MG TAB PO (08:22)
[2020-05-11] MEDS: DOCUSATE 100 MG CAPSULE PO ×2 (08:22→21:19)
[2020-05-11] MEDS: FUROSEMIDE 40 MG TABLET PO (08:22)
[2020-05-11] MEDS: INSULIN ASPART 100 UNIT/ML INSULN PEN SUBCUT ×4 (08:26→21:13)
[2020-05-11] MEDS: PANTOPRAZOLE 40 MG VIAL IV (08:27)
[2020-05-11] MEDS: dilTIAZem CD 180 MG CAP PO ×2 (08:28→21:18)
[2020-05-11] MEDS: ALBUTEROL/IPRATROPIUM MDI 1 PUFF INH ×2 (09:26→21:17)
[2020-05-11 10:20] LABS: COVID19 -Nasal RAPID Negative (Negative)
--- NOTE | 2020-05-11 10:49 | PT.IPTN ---
Current Diagnoses Heart failure, unspecified (05/03/20) Chronic obstructive pulmonary disease, unspecified (05/03/20) Surgery Performed Operation Date: 05/03/20 12:30 Actual Procedures p Exploratory Laparotomy GEN Cami Camp MD Physical Therapy Treatment Note M2 PT-IP Current Condition Start: 05/06/20 14:50 Freq: NEEDED Status: Active Protocol: Document 05/06/20 10:52 AB (Rec: 05/06/20 15:09 AB [email or web address]) Physical Therapy Current Condition Current Condition Evaluation Date 05/06/20 Treatment Diagnosis hernia s/p ex-lap and small bowel resection; difficulty in walking Onset Date 05/03/20 M3 PT-IP Subjective Start: 05/06/20 14:50 Freq: NEEDED Status: Active Protocol: Document 05/11/20 10:38 CLB (Rec: 05/11/20 11:29 CLB [id number]) Subjective Physical Therapy Visit Type Type Treatment Note Visit Start Time 10:38 Visit Stop Time 10:49 Total Visit Minutes 11 Number of STOREKEEPER ENGINEERING Visits 4 Physical Therapy Visit Comments Patient Comments Pt willing to ambulate with STOREKEEPER ENGINEERING. M4 PT-IP Mobility and Gait Start: 05/06/20 14:50 Freq: NEEDED Status: Active Protocol: Document 05/11/20 10:38 CLB (Rec: 05/11/20 11:29 CLB [id number]) PT-Bed Mobility Assessment Supine to Sit Supine to Sit Standby Assistance,Head of Bed Elevated,Bedrails Scooting Scooting to Edge of Bed Standby Assistance PT-Transfer Assessment Sit to and From Stand Sit to and from Stand Standby Assistance,1 Person Assistance,Use of Upper Extremities Equipment Transfer Assistive Device Gait Belt,Front Wheeled Walker Orthotic/Prosthetic Devices or Brace: No Transfers Transfer Destination Bed Transfer Ability Level of Assist Standby Assistance,1 Person Assistance,Use of Upper Extremities Comments Mobility Comments Pt able to perform supine to sit SBA then stand with cues to push up from bed for safety . Pt ambulated into barrientos to RN desk, pt stood and rested then returned to room, pt required assist with wound vac and O2 tank, pt refused to ambulate any further even after encouragement. Pt returned to room sitting on EOB Sp02 on 3L 91-92%. Pt left on EOB with JESICA De La Torre and Dr. Camp present. Gait Assessment Gait Gait Assistance Required: Standby Assistance,1 Person Assist Distance (Feet) 50 Able to Maintain Weight Bearing Status Yes During Gait Assistive Devices Assistive Device Gait Belt,Front Wheeled Walker Orthotic/Prosthetic Devices or Brace: No Gait Deviations General Gait Pattern Antalgic,Decreased Stride Length,Decreased Feet Clearance,Wide Based Gait Factors Limiting Gait Function Factors Limiting Gait Function Decreased Activity Tolerance, Decreased Strength,Poor Balance,Poor Safety Awareness, Respiratory Distress Comments Gait Comments Pt ambulated SBA ~50ft with standing rest break after ~ 25ft. M5 PT-IP Objective Assessments Start: 05/06/20 14:50 Freq: NEEDED Status: Active Protocol: Document 05/06/20 10:52 AB (Rec: 05/06/20 15:09 AB [id number]) Orientation Orientation/Cognition Level of Alertness Alert Orientation Name,Place,Situation Safety Awareness Decreased Safety Awareness Gross Range of Motion Lower Extremity ROM Assessment Within Functional Limits Strength Lower Extremity Strength Assessment Bilaterally Impaired Hip 3+/5 Knee 3+/5 Coordination Assessment Gross Coordination Gross Coordination WNL Sensation Assessment Sensation Gross Sensation WNL Muscle Tone Muscle Tone WNL Yes M6 PT-IP Treatment Start: 05/06/20 14:50 Freq: NEEDED Status: Active Protocol: Document 05/09/20 12:41 KS (Rec: 05/09/20 13:24 KS [id number]) Physical Therapy Treatment Education Education Provided Precautions,Safety M7 PT-IP Assessment and Plan Start: 05/06/20 14:50 Freq: NEEDED Status: Active Protocol: Document 05/11/20 10:38 CLB (Rec: 05/11/20 11:29 CLB [id number]) PT Summary Assessment and Plan Summary Impairments Pain,ROM,Strength,Balance, Coordination,Sensation,Tone, Cognition,Bed Mobility, Transfers,Gait,Activity Tolerance Progress Towards Goals Progressing Toward Goals Assessment Summary Pt is SBA for all bed mobility , sit-stand and gait. Pt willing to ambulate ~50ft to meet PT goal for ambulation but refused to go any further. Goals Bed Mobility Goal Minimal Assistance Transfer Goal Minimal Assistance,Front Wheeled Walker Gait Goal Minimal Assistance,Front Wheel Walker Gait Distance 50 Days to Meet Goals 10 Frequency of Treatment Frequency Of Treatment Once a Day Treatment Plan Physical Therapy Treatment Plan Bed Mobility Training,Transfer Training,Gait Training, Therapeutic Exercise,Balance Retraining,Post Op Education, Discharge Planning,Hot or Cold Pack,Neuromuscular Re-ed, Coordination Retraining,Manual Therapy Other Recommendations and Next Treatment ambulation Focus Recommendations To Nursing Amount of Assist Needed 1 Person Assist Discharge Recommendations PT Discharge Recommendations Home with Assistance,Home Health Equipment Needed for Home Before Pt states he has Discharge purchased a FWW. Transportation Needs at Discharge Private Vehicle
--- NOTE | 2020-05-11 12:12 | CM.DPC ---
DCP Home with HH planning Per Surgeon, rounded on pt with spouse bedside this morning and determined that no wound vac needed at d/c and will plan on wet to dry dressing changes and follow up with the [facility] and HH after discharge and plan of discharge tomorrow. Per DATA NETWORK ARCHITECT, pt was able to safely ambulate today with bedside and recommending safe d/c home with HH. ROSIBEL met bedside with pt and spouse and explained role and provided the HH Choice List with Sharron contact info and confirmed that they are both agreeable with home with HH tomorrow and wound care follow up as outpt. SW discussed more about HH services and frequency and that it's not a house shorer or caregiver. Pt and spouse acknowledged understanding and they are agreeable with d/c plan tomorrow to home if pt remains stable. ROSIBEL called Sharron Franco and updated on above and likely d/c tomorrow and faxed MD Rand orders, PT note from today and MD prog note from yesterday and Salvador will begin insurance auth process for pt today so less likely chance of delay of start due to insurance. D/C summary will need to be faxed when available at discharge to Sharron. ROSIBEL called Heather with [employer] wound vac and updated that Wound vac no longer needed at d/c and she will continue to follow until pt discharges just to confirm no wound vac needed. Wound Vac pwk still attached to pt facesheet as back up if pt does not remain stable with wound overnight. Plan: SW to follow for plan of d/c home via spouse POV tomorrow if stable and fax Sharron d/c summary at discharge. DONOVAN Lerner
--- NOTE | 2020-05-11 12:13 | PM.PNPO.1 ---
Subjective Subjective Date Patient Seen: 05/11/20 Time Patient Seen: 12:13 Interval history: No acute overnight events. Tolerating a diet passing flatus no bowel movement. Exam Vital Signs (past 8 hours): - 05/11/20 08:00 05/11/20 08:20 05/11/20 09:27 Temperature 97.8 F Pulse Rate 92 H 94 H Respiratory Rate 17 18 Blood Pressure 185/86 H 185/86 H Pulse Oximetry 92 94 Fraction of Inspired Oxygen 50 Oxygen Delivery Method Nasal Cannula Oxygen Flow Rate 3 Narrative Exam Narrative: General adult woman alert oriented no acute distress Chest nonlabored respirations Abdomen wound VAC removed midline incision clean granulating well Objective Labs Result Diagrams: 05/10/20 04:45 05/10/20 04:45 Labs: Laboratory Results - last 24 hr 05/11/20 09:00 COVID-19 PCR Negative Assessment & Plan Post-op Postoperative Procedures: Procedures Operation Date: 05/03/20 12:30 Actual Procedures Side Surgeon p Exploratory Laparotomy GEN Joseluis Camp MD Postoperative status narrative: 59-year-old female postoperative day 8 status post exploratory laparotomy, small-bowel resection for a strangulated umbilical hernia. She has recovered well and is approaching discharge. Wound VAC to midline removed, the wound is healing very well no need for further wound VAC will perform wet-to-dry once daily. No medical changes necessary in regards to the management of her diabetes, hypertension, COPD, congestive heart failure. She is medically stable. Anticipate discharge to home tomorrow. Time Spent With Patient Time with patient: Greater than 35 minutes Quality VTE Deep Vein Thrombosis/Pulmonary Embolism Present on Admission: No
[2020-05-11] MEDS: BISACODYL 10 MG SUPP PR (12:52)
--- NOTE | 2020-05-11 15:37 | OT.IP.TRT ---
Current Diagnoses Heart failure, unspecified (05/03/20) Chronic obstructive pulmonary disease, unspecified (05/03/20) Surgery Performed Operation Date: 05/03/20 12:30 Actual Procedures p Exploratory Laparotomy GEN Cami Camp MD Occupational Therapy Treatment Note M2 OT-IP Current Condition Start: 05/08/20 14:49 Freq: Status: Active Protocol: Document 05/08/20 14:49 [facility] (Rec: 05/08/20 15:07 [facility] [id number]) Occupational Therapy Current Condition Current Condition Evaluation Date 05/08/20 Treatment Diagnosis Hernia s/p ex-lap resection, small bowel resection Diagnosis Onset Date 05/03/20 M3 OT- IP Subjective and Pain Start: 05/08/20 14:49 Freq: Status: Active Protocol: Document 05/11/20 15:40 [facility] (Rec: 05/11/20 15:53 [facility] [email or web address]) OT- Subjective Occupational Therapy Visit Type Type Progress Note M4 OT- IP ADL's Start: 05/08/20 14:49 Freq: Status: Active Protocol: Document 05/11/20 15:40 [facility] (Rec: 05/11/20 15:53 [facility] [email or web address]) OT [id number] Comments OT Self-Feeding Comments Not meal time OT ADL-Grooming General Evaluation Grooming Ability Independent Areas Needing Assistance Combing/Brushing Hair Comments OT Grooming Comments seated EOB after shower OT ADL-Oral Care Comments Oral Care Comments Pt declined to perform OT ADL-Dressing General Eval Upper Body Dressing Ability Minimal Assistance Comments OT Dressing Comments min a for [facility] gown. Pt was aprehensive of doffing gown for shower. Pt needed min a for doffing socks for shower and declined to don clean socks after shower. OT ADL-Toileting General Evaluation Toileting Ability Standby Assistance Comments OT Toileting Comments Pt urinated seated on toilet and passed gas. Performed self pericare. OT ADL-Bathing Bathing Type Bathing Type Shower General Evaluation Bathing Ability Minimal Assistance Areas Needing Assistance Retrieving/Setting Up Items, Wash/Dry Back Devices Bathing Equipment Hand Held Shower Sprayer, Shower Chair with Arms Comments OT Bathing Comments Pt needed assist getting shampoo for her hair from the wall mounted soap dispenser, pt also needed verbal cues to perform pericare. M6 OT- IP Functional Cognition Start: 05/08/20 14:49 Freq: Status: Active Protocol: Document 05/08/20 14:49 [facility] (Rec: 05/08/20 15:07 [facility] [id number]) Cognitive Factors Limiting Selfcare Function Cognitive Ability Level of Alertness Alert Patient Orientation Name,Place,Situation Attention Span Ability Capable of Focused Attention, Capable of Sustained Attention Ability to Follow Commands Able to Follow One Step Commands Cognitive Comments Cognitive Assessment Comments Pt able to follow directions but distracted by itchiness in her legs. Pt having a hard time to initiate and agreed to do things for herself and her who is present ends up assist her with her needs. M7 OT- IP Mobility and Balance Start: 05/08/20 14:49 Freq: Status: Active Protocol: Document 05/11/20 15:40 [facility] (Rec: 05/11/20 15:53 [facility] [email or web address]) OT- Bed Mobility Assessment Supine to Sit Supine to Sit Assist Standby Assistance,Head of Bed Elevated,Bedrails Sit to Supine Sit to Supine Assist Standby Assistance,Head of Bed Elevated,Bedrails Scooting Scooting to Edge of Bed Standby Assistance OT-Transfer Assessment Sit to and From Stand Sit to and from Stand Standby Assistance Transfers Transfer Ability Standby Assistance,Contact Guard Assistance Technique Transfer Destination Bed,Chair,Toilet Transfer Technique Stand Step Pivot Devices Transfer Assistive Devices Gait Belt,Front Wheeled Walker Comments Mobility Comments SBA for most mobility. CGA for shower mobility for safety. OT- Gait Assessment Gait Gait Assistance Required: Standby Assistance Assistive Devices Assistive Device Gait Belt,Front Wheeled Walker Comments Gait Ability Comments Mobility around the room. OT- Balance Assessment Sitting Balance and Reactions Static Sitting Balance Ability Good Dynamic Sitting Balance Ability Fair M8 OT- IP Objective Assessments Start: 05/08/20 14:49 Freq: Status: Active Protocol: Document 05/08/20 14:49 [facility] (Rec: 05/08/20 15:07 [facility] [id number]) OT Strength Comments Strength Comments At least 3+/5. M9 OT- IP Assessment and Plan Start: 05/08/20 14:49 Freq: Status: Active Protocol: Document 05/11/20 15:40 [facility] (Rec: 05/11/20 15:53 [facility] [email or web address]) OT Summary Assessment and Plan Potential Rehabilitation Potential Fair Analytic Complexity at Evaluation Low Summary OT Impairments Functional Mobility,Grooming, Dressing,Toileting,Bathing, Toilet Transfers,Shower Transfers,Activity Tolerance Progress Towards Goals Slow Progress due to Medical Issues,Slow Progress due to Activity Tolerance Assessment Summary Pt will continue to benefit from increased activity levels but declines further activities. Pt states that they are getting an adjustable bed for home use. Pt may benefit from home health P.T. and OT at discharge. Goals Grooming Goal Independent Dressing Goal Independent Toileting Goal Independent Bathing Goal Independent Toilet Transfer Goal Independent Shower Transfer Goal Independent Patient/Caregiver Education Goal Demonstrate Energy Conservation and Pacing, Caregiver Independent Assisting Patient Days to Meet Goals 5 Frequency of Treatment Frequency Of Treatment Once a Day Treatment Plan OT Treatment Plan ADL Training,Functional Mobility,Patient/Family Education,Discharge Planning Other Treatment Recommendations and Next increased activity level. Treatment Focus Discharge Recommendations OT Discharge Recommendations Home with Assistance,Home Health Transportation Needs at Discharge Private Vehicle
[2020-05-11] MEDS: guaiFENesin ER 600 MG TAB 1200 MG PO (21:18)
[2020-05-12 00:20] VITALS: BP 174/96; PULSE 89; RESP 18; TEMP 36.1; O2SAT 97
[2020-05-12 01:27] VITALS: BP 165/90
[2020-05-12] MEDS: PANTOPRAZOLE 20 MG TABLET PO (05:59)
--- NOTE | 2020-05-12 06:07 | PC.NURSE ---
Pt initially refused to get out of bed to use toilet - pt had no UOP during shift. She was asked again to please ambulate to BR to urinate, Pt reluctantly got up and produced 300mL of krystal urine. Encouraged pt to drink more fluids, she stated, I drink water all day at home. She did note that her urine has been dark during this hospital stay.
[2020-05-12 08:28] VITALS: BP 161/84; PULSE 85; RESP 18; TEMP 36.6; O2SAT 95
[2020-05-12] MEDS: INSULIN ASPART 100 UNIT/ML INSULN PEN SUBCUT ×2 (08:39→12:18)
[2020-05-12] MEDS: buPROPion XL 150 MG TAB PO (08:41)
[2020-05-12] MEDS: OXYCODONE IR 5 MG TABLET PO ×2 (08:41→12:41)
[2020-05-12] MEDS: guaiFENesin ER 600 MG TAB 1200 MG PO (08:41)
[2020-05-12] MEDS: dilTIAZem CD 180 MG CAP PO (08:41)
[2020-05-12] MEDS: DOCUSATE 100 MG CAPSULE PO (08:41)
[2020-05-12] MEDS: ENOXAPARIN 40 MG/0.4 ML SYRINGE SUBCUT (08:41)
[2020-05-12] MEDS: FUROSEMIDE 40 MG TABLET PO (08:42)
[2020-05-12] MEDS: SPIRONOLACTONE 25 MG TABLET PO (08:42)
[2020-05-12] MEDS: LOSARTAN 50 MG TABLET 100 MG PO (08:42)
[2020-05-12 09:42] VITALS: O2SAT 94
--- NOTE | 2020-05-12 11:25 | OT.IP.TRT ---
Current Diagnoses Heart failure, unspecified (05/03/20) Chronic obstructive pulmonary disease, unspecified (05/03/20) Surgery Performed Operation Date: 05/03/20 12:30 Actual Procedures p Exploratory Laparotomy GEN Cami Camp MD Occupational Therapy Treatment Note M2 OT-IP Current Condition Start: 05/08/20 14:49 Freq: Status: Active Protocol: Document 05/08/20 14:49 [facility] (Rec: 05/08/20 15:07 [facility] [id number]) Occupational Therapy Current Condition Current Condition Evaluation Date 05/08/20 Treatment Diagnosis Hernia s/p ex-lap resection, small bowel resection Diagnosis Onset Date 05/03/20 M3 OT- IP Subjective and Pain Start: 05/08/20 14:49 Freq: Status: Active Protocol: Document 05/12/20 11:44 [facility] (Rec: 05/12/20 11:47 [facility] [id number]) OT- Subjective Occupational Therapy Visit Type Type Treatment Note Visit Start Time 11:25 Visit Stop Time 11:35 Total Visit Minutes 10 Occupational Therapy Visit Comments Patient Comments Pt agreed to get dressed. Patient/Caregiver Goals To go home. OT Pain Assessment Pain When Pain Assessed At Rest Pain Present Pain Present Denied Pain M4 OT- IP ADL's Start: 05/08/20 14:49 Freq: Status: Active Protocol: Document 05/12/20 11:44 [facility] (Rec: 05/12/20 11:47 [facility] [id number]) OT [id number] Comments OT Self-Feeding Comments Not meal time OT ADL-Grooming Comments OT Grooming Comments Pt states did prior. OT ADL-Dressing General Eval Upper Body Dressing Ability Independent Lower Body Dressing Ability Minimal Assistance Comments OT Dressing Comments SHANE as jumped in to assist to get PJ pants on over her feet. Pt then able to stand with FWW and pull up over his hips. M6 OT- IP Functional Cognition Start: 05/08/20 14:49 Freq: Status: Active Protocol: Document 05/08/20 14:49 [facility] (Rec: 05/08/20 15:07 [facility] [id number]) Cognitive Factors Limiting Selfcare Function Cognitive Ability Level of Alertness Alert Patient Orientation Name,Place,Situation Attention Span Ability Capable of Focused Attention, Capable of Sustained Attention Ability to Follow Commands Able to Follow One Step Commands Cognitive Comments Cognitive Assessment Comments Pt able to follow directions but distracted by itchiness in her legs. Pt having a hard time to initiate and agreed to do things for herself and her who is present ends up assist her with her needs. M7 OT- IP Mobility and Balance Start: 05/08/20 14:49 Freq: Status: Active Protocol: Document 05/12/20 11:44 [facility] (Rec: 05/12/20 11:47 [facility] [email or web address]) OT-Transfer Assessment Sit to and From Stand Sit to and from Stand Standby Assistance OT- Balance Assessment Sitting Balance and Reactions Static Sitting Balance Ability Normal Dynamic Sitting Balance Ability Good M8 OT- IP Objective Assessments Start: 05/08/20 14:49 Freq: Status: Active Protocol: Document 05/08/20 14:49 [facility] (Rec: 05/08/20 15:07 [facility] [id number]) OT Strength Comments Strength Comments At least 3+/5. M9 OT- IP Assessment and Plan Start: 05/08/20 14:49 Freq: Status: Active Protocol: Document 05/12/20 11:44 [facility] (Rec: 05/12/20 11:47 [facility] [email or web address]) OT Summary Assessment and Plan Pt looking to go home today. OT also went over work simplification and energy conservation strategies to incorporate at home. Pt has a very supportive that will assist pt as needed at home. Potential Rehabilitation Potential Fair Analytic Complexity at Evaluation Low Summary OT Impairments Balance,Functional Mobility, Dressing,Toileting,Bathing, Toilet Transfers,Shower Transfers,Activity Tolerance Goals Grooming Goal Independent Dressing Goal Independent Toileting Goal Independent Bathing Goal Independent Toilet Transfer Goal Independent Patient/Caregiver Education Goal Demonstrate Energy Conservation and Pacing, Caregiver Independent Assisting Patient Days to Meet Goals 3 Frequency of Treatment Frequency Of Treatment Once a Day Treatment Plan OT Treatment Plan ADL Training,Functional Mobility,Patient/Family Education,Discharge Planning Other Treatment Recommendations and Next increased activity level. Treatment Focus Discharge Recommendations OT Discharge Recommendations Home with Assistance,Home Health Transportation Needs at Discharge Private Vehicle
--- NOTE | 2020-05-12 11:25 | PT-IP ANOTE ---
Pt refused getting up with this TRANSIT WORKER today, pt to d/c home with assist at 1300.
--- NOTE | 2020-05-12 12:02 | CM.DPC ---
DCP: continued: case received, EMR reviewed for the last few days. Spoke then with Dr. Camp who said pt was ready for d/c today. Have now spoken with RN Dayron, pt and her (at bedside) and their daughter Mina. Dayron will be going over the d/c instructions including the we to dry dressing changes with pt and family. She confirms she will give her supplies for a couple of days until Sharron WOODSON can see pt. Will update Sharron WOODSON now, send the final orders and yesterday's progress note from Dr. Camp. Will call Sharron to update on the d/c for today: done: Salvador confirms he has been working on the auth process and agees to follow up on this with pt and her family. NIC Martinez will fax the d/c summary when this is available. P: home today, family support and Sharron WOODSON.
--- NOTE | 2020-05-12 12:34 | PM.DS.1 ---
History of Present Illness History of Present Illness Chief complaint: Severe stomach pain, vomiting bile, SOB Narrative: This is a 59-year-old woman who presents with a small-bowel obstruction with incarcerated umbilical hernia. Hernia is been present for decades that she developed a an acute incarceration within the past 24 hours associated with nausea and vomiting. Her abdominal pain progressed she presents to the emergency room underwent a CT scan that demonstrates small bowel within the hernia as well as obstruction. He has never had any prior abdominal surgery. Medical history is relevant for obstructive sleep apnea, COPD on 3 L of oxygen baseline, congestive heart failure ejection fraction unknown, diabetes, obesity, BMI 38 and hypertension. Discharge Providers Provider Date of admission: 05/03/20 11:26 Discharge Date: 05/12/20 Primary care physician: Mulu Trujillo Consults: 05/03/20 12:20 Consult to Respiratory Therapy Evaluate & Treat Comment: NIF test preop, please. Physician Instructions: Evaluate and treat 05/03/20 15:12 Consult to Physician Routine Comment: consult to primary care provider for followup Consulting Provider: Joseluis Camp Reason for consultation: Positive STOP BANG, management of obstructive sleep apnea Has provider been notified: Yes 05/03/20 16:02 Consult to Hospitalist Service Routine Comment: Consulting Provider: Jordyn Lyon Reason for consultation: COPD CHF, HTN VENT management Has provider been notified: Yes 05/03/20 16:44 Consult to Dietitian, Adult Routine Comment: Reason For Exam: Patient on Ventilator and NPO Consult to Respiratory Therapy Evaluate & Treat Comment: Med Hx: COPD/home O2 @3LPM-24h, CHF, CPAP, smoker Physician Instructions: Evaluate and treat 05/05/20 15:38 Consult to Physical Therapy Evaluate & Treat Comment: Physician Instructions: Evaluate and Treat 05/07/20 11:53 Consult to Occupational Therapy Evaluate & Treat Comment: Physician Instructions: Evaluate and treat 05/11/20 12:01 Consult to Home Health Routine Comment: Exploratory Lap, small bowel resection, intubation Reason For Exam: Set up RN/PT/OT for discharge home Discharge provider: Joseluis Camp MD Summary Hospital Course Discharge Diagnosis: Obstructive sleep apnea COPD Congestive heart failure Diabetes Obesity Hypertension Strangulated umbilical hernia Ischemic small bowel Tobacco use Hospital Course: 59 year old female with multiple comorbidities including obstructive sleep apnea COPD congestive heart failure is diabetes and obesity who presented with a strangulated umbilical hernia containing bowel. She was taken the operating room underwent exploratory laparotomy and small-bowel resection as there was necrotic small bowel within the hernia. Postoperatively she remained intubated in the intensive care unit for respiratory insufficiency. She was ultimately extubated on postoperative day 2. She had a postoperative ileus that slowly resolved. Internal Medicine was consulted for management of her comorbidities. On the date of discharge 05/12/2020 patient is doing well. She is tolerating a regular diet having bowel movements and passing flatus her pain is well controlled. Status at Discharge Cognitive/behavioral status at discharge: oriented Overall status at discharge: patient is progressing back to baseline Time Spent with Patient Time spent: Greater than 30 minutes Exam Vital Signs (past 8 hours): - 05/12/20 08:28 05/12/20 09:42 Temperature 97.9 F Pulse Rate 85 Respiratory Rate 18 Blood Pressure 161/84 H Pulse Oximetry 95 94 Fraction of Inspired Oxygen 50 Oxygen Delivery Method Nasal Cannula Oxygen Flow Rate 3 Narrative Exam Narrative: General adult female alert oriented no acute distress morbidly obese Chest nonlabored respiration on baseline 3 L oxygen Abdomen soft appropriately tender to palpation. midline incision open wound is well granulated without evidence of infection Objective Labs Result Diagrams: 05/10/20 04:45 05/10/20 04:45 Discharge Plan Discharge Plan Patient Disposition: Home Discharge orders & Medications Prescriptions: New docusate sodium [Colace] 100 mg capsule 100 mg PO BID Qty: 40 RF: 0 oxycodone 5 mg tablet 5 mg PO Q6H PRN (Reason: pain) Qty: 40 RF: 0 acetaminophen [Tylenol] 325 mg capsule 650 mg PO QID PRN (Reason: pain) Qty: 60 RF: 0 Continued Januvia 100 mg tablet 100 mg PO DAILY RF: 0 Adult Low Dose Aspirin 81 mg 81 mg PO DAILY RF: 0 furosemide 40 mg tablet 40 mg PO DAILY RF: 0 diltiazem HCl 180 mg capsule,extended release 24hr 180 mg PO BID RF: 0 spironolactone 25 mg tablet 25 mg PO DAILY RF: 0 losartan 100 mg tablet 100 mg PO DAILY RF: 0 bupropion HCl 150 mg tablet extended release 24 hr 150 mg PO DAILY RF: 0 Combivent Respimat 20-100 mcg/actuation mist 1 puff INHALATION QID RF: 0 albuterol sulfate 2 puff inhalation Q4H RF: 0 Follow up/Referrals: Cle,Mulu [Primary Care Provider] - Joseluis Camp MD [Physician] - Diet/Activity/Treatments Diet: Regular Activity: No lifting >20 lbs x 4 weeks. Walking only for exercise for 4 weeks[address] while taking narcotics. Skin/Wound/Dressing Care Dressing: Wet-to-dry gauze dressing to abdominal wound once daily Visit Report/Discharge Packet Instructions: DI for Small Bowel Resection, Oxycodone, [facility]: Wound Care Visit Report Forms: Patient Portal/API, Stroke Signs & Symptoms Discharge Data Primary Care Provider: Mulu Trujillo Quality VTE Deep Vein Thrombosis/Pulmonary Embolism Present on Admission: No
[2020-05-12 13:25] VITALS: BP 154/86; PULSE 80; RESP 18; TEMP 36.1; O2SAT 94
--- NOTE | 2020-05-12 13:50 | PC.NURSE ---
Discharge Note Pt discharged to home with and daughter at 1330. Home health set up by care management. Dressing to midline abdomen changed at bedside. Instructed pt, pt's , and daughter on daily dressing changes. Acknowledged understanding and all questions answered. Escorted to hospital exit via wheelchair by staff member.
[2020-05-14 00:03] LABS: Fractionated Inspired Oxygen 0.5; HCO3 ABG 28 mmol/L (22-26); Oxygen Saturation ABG 92 % (95-100); PCO2 ABG 48.6 mmHg (35-45); PO2 ABG 67 mmHg (80-100); TCO2 ABG 29 mmol/L (21-31); pH ABG 7.37 (7.35-7.45)
== END 2020-05-12 13:30 | disposition home health service (06) | DRG 329 ==
LOC: ED 09:32 → AC 11:49 → ICU 05-04 10:07 → AC 05-04 11:47 → ICU 05-04 12:31 → AC 05-08 09:04
PROVIDERS: Anesthesiology; Internal Medicine; Admitting Provider Surgery; Emergency Provider Emergency Medicine; PCP Internal Medicine; Visit Provider Surgery
PROC: 0DB80ZZ Excision of Small Intestine, Open Approach (ICD-10-PCS; CPT 49000; principal; 2020-05-03 12:30)
DX: K42.1 Umbilical hernia with gangrene (principal); J96.20 Acute and chronic respiratory failure, unspecified whether with hypoxia or hypercapnia; J69.0 Pneumonitis due to inhalation of food and vomit; I50.22 Chronic systolic (congestive) heart failure; Z68.41 Body mass index [BMI] 40.0-44.9, adult; J96.10 Chronic respiratory failure, unspecified whether with hypoxia or hypercapnia; N17.9 Acute kidney failure, unspecified; K56.7 Ileus, unspecified; K66.0 Peritoneal adhesions (postprocedural) (postinfection); I11.0 Hypertensive heart disease with heart failure; Z99.81 Dependence on supplemental oxygen; E66.01 Morbid (severe) obesity due to excess calories; J44.9 Chronic obstructive pulmonary disease, unspecified; R07.9 Chest pain, unspecified; L29.8 Other pruritus; G47.33 Obstructive sleep apnea (adult) (pediatric); E11.9 Type 2 diabetes mellitus without complications; F17.210 Nicotine dependence, cigarettes, uncomplicated; F32.9 Major depressive disorder, single episode, unspecified; Z11.59 Encounter for screening for other viral diseases
CPT/HCPCS: 36415; 36600; 71045; 74177; 76770; 80048; 80053; 81001; 82805; 82962; 83036; 83690; 83735; 83880; 84100; 84145; 84484; 85025; 85610; 85730; 87070; 87205; 87635; 93005; 93306; 94002; 94003; 94010; 94640; 94760; 94762; 94770; 94799; 96361; 96365; 96375; 97116; 97162; 97165; 97530; 97535; 99285; 99291; A9270; C9113; J0131; J0330; J1170; J1650; J1885; J1940; J1956; J2250; J2405; J2543; J2704; J3010; J7613; Q9967

== ENCOUNTER → 2020-10-31 12:29 | Outpatient (CLI) | payer OTHER, SELFPAY ==
[2020-05-03 11:45] VITALS: BMI 40.3
[2020-05-05 10:33] VITALS: PULSE 110; RESP 26; O2SAT 94
--- NOTE | 2020-10-31 | DI.MG.S_ITS ---
BILATERAL DIGITAL SCREENING MAMMOGRAM 3D/2D WITH CAD: 10/31/2020 CLINICAL: Routine screening. Comparison is made to exams dated: 09/04/2017 mammogram, 10/31/2017 mammogram, and 12/29/2018 mammogram - [facility]. There are scattered fibroglandular elements in both breasts. Current study was also evaluated with a Computer Aided Detection (CAD) system. No significant masses, calcifications, or other findings are seen in either breast. There has been no significant interval change. IMPRESSION: NEGATIVE There is no mammographic evidence of malignancy. A 1 year screening mammogram is recommended. This exam was interpreted at Station ID: [id number]. NOTE: For mammograms, a report in lay terms will be sent to the patient. Approximately 15% of breast malignancies will not be visualized mammographically. In the management of a palpable breast mass, a negative mammogram must not discourage biopsy of a clinically suspicious lesion. Electronically Signed By: Chris thomas/hermes:11/02/2020 08:10:18 letter sent: Normal Exam ACR BI-RADS Category 1: Negative [id number]
== END ==
PROVIDERS: PCP Internal Medicine; Referring Provider Internal Medicine; Visit Provider Internal Medicine
DX: Z12.31 Encounter for screening mammogram for malignant neoplasm of breast (principal)
CPT/HCPCS: 77063; 77067

== ENCOUNTER → 2020-11-16 10:17 | Outpatient (CLI) | payer OTHER, SELFPAY ==
[2020-05-03 11:45] VITALS: BMI 40.3
[2020-05-05 10:33] VITALS: PULSE 110; RESP 26; O2SAT 94
[2020-11-16 11:26] LABS: COVID19 -Nasal RAPID Negative (Negative)
== END ==
PROVIDERS: PCP Internal Medicine; Visit Provider Physician Assistant
DX: Z01.812 Encounter for preprocedural laboratory examination (principal); Z20.822 Contact with and (suspected) exposure to COVID-19
CPT/HCPCS: 87635

== ENCOUNTER 2020-11-18 09:22 | Day surgery (SDC) | payer OTHER, SELFPAY ==
[2020-05-03 11:45] VITALS: BMI 40.3
[2020-05-05 10:33] VITALS: PULSE 110; RESP 26; O2SAT 94
--- NOTE | 2020-11-18 | PATH_ITS ---
[facility] Accession Number: [id number] . 01 Material submitted: . PART A: cecum - 2MM CECUM JUMBO PART B: colon - TRANSVERSE JUMBO PART C: rectosigmoid junction - RECTOSIGMOID POLYPS . 02 Diagnosis: A. Cecal Polyp, 2 mm, Biopsy: Colonic mucosa with no diagnostic abnormality, consistent with polypoid redundancy. Negative for serrated lesion, dysplasia or malignancy. . B. Transverse Colon Polyp, Biopsy: Tubular adenoma. . C. Rectosigmoid Colon Polyps, Biopsies: Fragments of hyperplastic polyp. V 11/20/2020 1027 Local . 02 Electronically signed: . Angel Ruvalcaba MD, PhD, Pathologist NPI- [id number] . 01 Gross description: . Part A: 2MM CECUM JUMBO: Received in formalin is 1 fragment(s) of oliveira, soft tissue measuring 0.4 x 0.3 x 0.3 cm submitted entirely in 1 cassette(s) Part B: TRANSVERSE JUMBO: Received in formalin are 2 fragment(s) of oliveira, soft tissue measuring 0.2 x 0.2 x 0.1 cm to 0.4 x 0.2 x 0.2 cm submitted entirely in 1 cassette(s) Part C: RECTOSIGMOID POLYPS: Received in formalin are multiple fragment(s) of oliveira, soft tissue measuring 0.1 x 0.1 x 0.1 cm to 0.7 x 0.7 x 0.4 cm submitted entirely in 1 cassette(s) /LANRE 11/19/2020 1924 Local . 02 Pathologist provided ICD-10: D12.3, K63.5, K62.1 . 02 CPT . 417488, [id number], [id number] Performed at: 01 [facility] [address] [place] [address], [place], [place] [id number] MD Mark Ahuja MD Phone: [phone] Performed at: 02 [facility] [address] [place], [place] [id number] MD Natalie Spears MD Phone: [phone]
[2020-11-18 09:49] VITALS: BP 161/81; PULSE 107; RESP 26; TEMP 36.8; O2SAT 97; BMI 39.1
[2020-11-18] MEDS: SODIUM CHLORIDE 0.9% 1,000 ML 100 ML IV (10:08)
--- NOTE | 2020-11-18 10:14 | P.HP_ITS ---
History of Present Illness History of Present Illness Date Patient Seen: 11/18/20 Chief complaint: DX COLONOSCOPY Narrative: History of colon polyps. Patient had a colonoscopy 3 years ago 2018 with polyps. She then had rectal bleeding in 2019 and had repeat colonoscopy at with [facility]. Apparently polyps were found but not removed and she was referred to GI in [place] just before [place] hit. She now presents to have colonoscopy and removal of any polyps. She has no GI symptoms. Patient History Medical History CHF (congestive heart failure) COPD (chronic obstructive pulmonary disease) Diabetes HTN (hypertension) Obstructive sleep apnea Strangulated hernia of abdominal wall Surgical History (Updated 05/03/20 @ 18:46 by Jordyn Lyon DO) S/P tonsillectomy Family & Social History Social History: household members spouse Tobacco & Substance use: Tobacco type cigarettes Smoking Status Former smoker alcohol intake current alcohol intake frequency holiday/special occasion Substance Use Type does not use Meds Home Medications and Allergies Home Medications Medication Instructions Recorded Confirmed Type Adult Low Dose Aspirin 81 mg PO DAILY 05/03/20 11/18/20 History Combivent Respimat 1 puff INHALATION QID 05/03/20 11/18/20 History albuterol sulfate 2 puff INHALATION Q4H 05/03/20 11/18/20 History bupropion HCl 150 mg PO DAILY 05/03/20 11/18/20 History diltiazem HCl 180 mg PO BID 05/03/20 11/18/20 History furosemide 40 mg PO DAILY 05/03/20 11/18/20 History losartan 100 mg PO DAILY 05/03/20 11/18/20 History spironolactone 25 mg PO DAILY 05/03/20 11/18/20 History docusate sodium [Colace] 100 mg PO DAILY 11/18/20 11/18/20 History dulaglutide [Trulicity] 1.5 mg SUBCUT WEEKLY 11/18/20 11/18/20 History Allergies Allergy/AdvReac Type Severity Reaction Status Date / Time atenolol [ATENOLOL] Allergy Severe THROAT Verified 11/18/20 09:41 CLOSES glipizide Allergy Intermediate Rash Verified 11/18/20 09:41 clonidine [CLONIDINE] Allergy Mild RASHS Verified 11/18/20 09:41 Exam Vital Signs (past 8 hours): - 11/18/20 09:49 Temperature 98.2 F Pulse Rate 107 H Respiratory Rate 26 H Blood Pressure 161/81 H Pulse Oximetry 97 Oxygen Delivery Method Room Air Narrative Exam Narrative: Oropharynx free of lesions Chest clear to auscultation percussion Cardiac exam reveals no clear S3 or murmur Assessment & Plan Assessment & Plan narrative: Known history of colon polyps not removed. Need for follow-up colonoscopy and removal of polyps. Risks, benefits, alternatives have been explained.
--- NOTE | 2020-11-18 10:16 | P.OP.ENDO_ITS ---
Operative Date/Time/Diagnoses Date of procedure: 11/18/20 Pre-op diagnosis: See indication and findings Procedure & Clinicians Study performed: Colonoscopy and polypectomy Same procedure as scheduled: Yes Indications: Known colon polyps, need for removal Surgeon: Lester Andrew Procedure Notes Procedure in detail: After informed consent was obtained the patient was placed in left lateral decubitus position. The video colonoscope was introduced the rectum slowly advanced cecum. Preparation was good. On slow withdrawal mucosa was carefully examined. The scope was removed. The patient will the procedure well. Blood loss none Complications none Sedation Total sedation time 31 minutes Versed 10 mg fentanyl 100 mg IV titration Findings 1. 2 mm cecal polyp Jumbo biopsy removed completely 2. Transverse colon polyp 2-3 mm Jumbo biopsy removed completely 3. Multiple rectosigmoid polyps noted. All were not removed. The largest ones were. Three 60 mm sessile polyps removed with cold snare. In addition it another 3-4 2-3 mm polyps were taken off with Jumbo biopsy forceps and placed in the same bottle. All of these polyps appeared quite hyperplastic. 4. Extensive lipomatous change in the right colon. There was at least 1 15 mm pedunculated lipoma with lipomatous change at the IC valve and a sense of fullness on 1 aspect of the ascending colon. This was yellow and soft. Five. Extensive sigmoid diverticulosis with good deal of redundant mucosa appearing to be polyps but not actually present. Will follow up on her biopsy results and if the appropriate interval for follow- up which I think should be 1-3 years. I would also like to get a hold of her operative report from her ?strangulated bowel? 6 months ago. This may help explain some of the luminal changes seen in the ascending colon.
[2020-11-18] MEDS: fentaNYL 250 MCG/5 ML INJ IV (10:51)
[2020-11-18] MEDS: MIDAZOLAM 5 MG/5 ML VIAL IV (11:04)
[2020-11-18 11:27] VITALS: BP 131/69; PULSE 82; RESP 23; TEMP 36.3; O2SAT 95
[2020-11-18 11:32] VITALS: BP 129/65; PULSE 83; RESP 21; O2SAT 94
[2020-11-18 11:37] VITALS: BP 135/76; PULSE 83; RESP 19; O2SAT 96
[2020-11-18 11:42] VITALS: BP 143/80; PULSE 80; RESP 20; TEMP 37.4; O2SAT 96
[2020-11-18 12:06] VITALS: BP 127/76; PULSE 78; RESP 16; TEMP 36.9; O2SAT 95
== END 2020-11-18 12:08 | disposition home or self-care (01) ==
PROVIDERS: PCP Internal Medicine; Referring Provider Internal Medicine Gastroenterology; Visit Provider Internal Medicine Gastroenterology
PROC: 0DJD8ZZ Inspection of Lower Intestinal Tract, Via Natural or Artificial Opening Endoscopic (ICD-10-PCS; CPT 45378; principal; 2020-11-18 10:30)
DX: D12.3 Benign neoplasm of transverse colon (principal); I50.9 Heart failure, unspecified; J44.9 Chronic obstructive pulmonary disease, unspecified; E11.9 Type 2 diabetes mellitus without complications; G47.33 Obstructive sleep apnea (adult) (pediatric); K57.30 Diverticulosis of large intestine without perforation or abscess without bleeding
CPT/HCPCS: 45385; 45380; J2250; J3010

== ENCOUNTER → 2021-05-06 10:56 | Outpatient (CLI) | payer OTHER, SELFPAY ==
[2020-05-03 11:45] VITALS: BMI 40.3
[2020-05-05 10:33] VITALS: PULSE 110; RESP 26; O2SAT 94
[2021-05-06 11:45] LABS: COVID19 -Nasal RAPID Negative (Negative)
== END ==
PROVIDERS: PCP Internal Medicine; Referring Provider Internal Medicine; Visit Provider Internal Medicine
DX: Z20.822 Contact with and (suspected) exposure to COVID-19 (principal)
CPT/HCPCS: 87635; C9803

== ENCOUNTER → 2021-05-06 12:54 | Outpatient (CLI) | payer OTHER, SELFPAY ==
[2020-05-03 11:45] VITALS: BMI 40.3
[2020-05-05 10:33] VITALS: PULSE 110; RESP 26; O2SAT 94
--- NOTE | 2021-05-12 11:18 | PM.PFT.1 ---
Pulmonary Function Test Referral & Results Date Patient Seen: 05/06/21 Requesting provider: Haylie Simmons Results: The spirometry demonstrates an FVC of 1.76 L which is 52% of predicted. The FEV1 was measured at 1.04 L which is 39% of predicted. The FEV1/FVC ratio was 59 which is 75% of predicted. Lung volumes show an SVC of 1.86 L which is 59% of predicted. The diffusing capacity was measured at 13.14 which is 51% of predicted. No hemoglobin value was provided, so no correction for potential anemia could be made, if appropriate. 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
== END ==
PROVIDERS: PCP Internal Medicine; Referring Provider Internal Medicine Pulmonary Disease; Visit Provider Internal Medicine Pulmonary Disease
DX: R06.02 Shortness of breath (principal); J42 Unspecified chronic bronchitis; J98.8 Other specified respiratory disorders; Z20.822 Contact with and (suspected) exposure to COVID-19; Z87.891 Personal history of nicotine dependence
CPT/HCPCS: 87635; 94060; 94729; C9803